=== PATIENT | female | born 1960 | race Two or more races ===

== ENCOUNTER → 2020-01-30 13:03 | Outpatient (BNVA) | payer OTHER, SELFPAY | PROVIDERS: PCP Internal Medicine; Visit Provider Student in an Organized Health Care Education/Training Program | DX: M32.9 Systemic lupus erythematosus, unspecified (principal); M35.00 Sjogren syndrome, unspecified; Z79.52 Long term (current) use of systemic steroids; Z79.899 Other long term (current) drug therapy | CPT/HCPCS: 99214 ==

== ENCOUNTER 2020-02-03 08:41 | Outpatient (REF) | payer OTHER, SELFPAY ==
[2020-02-03 10:38] LABS: MANUAL DIFF FLAG NO
[2020-02-03 10:51] LABS: Eosinophils Percent Auto 0.5 % (0-4); Hematocrit 41.1 % (37-47); Hemoglobin 12.9 g/dl (12.0-16.0); Imm Gran Abs Auto 0.01 X10*3/uL (0.00-0.03); Imm Gran Pct Auto 0.3 % (0.0-0.4); Lymphocytes Percent Auto 24.1 % (20-40); Mean Corpuscular HGB Conc 31.4 g/dl (31.0-35.0); Mean Corpuscular Hemoglobin 29.3 pg (27.0-33.0); Mean Corpuscular Volume 93.2 fL (80-98); Mean Platelet Volume 10.5 fL (9.4-12.3); Monocytes Absolute Auto 0.3 X10*3/uL (0.1-1.2); Monocytes Percent Auto 7.3 % (2-11); Neutrophils Absolute Auto 2.7 X10*3/uL (2.0-8.3); Neutrophils Percent Auto 67.8 % (45-73); Platelet Count 208 X10*3/uL (160-400); Red Blood Count 4.41 X10*6/uL (4.20-5.50); Red Cell Distribution Width 15.7 % (11.0-16.0)
[2020-02-03 11:03] LABS: Glucose Urine UA NEG (NEG); Leukocyte Esterase Urine NEG (NEG); Nitrite Urine NEG (NEG); Urine Blood NEG (NEG); Urine Ketones NEG (NEG); Urine Protein NEG (NEG-TRACE)
[2020-02-03 11:05] LABS: Alanine Aminotransferase 34 U/L (0-31); Albumin Level 3.8 g/dL (3.5-5.0); Alkaline Phosphatase 51 U/L (39-117); Anion Gap 12 (12-20); Aspartate Amino Transferase 23 U/L (5-31); Bilirubin Total 0.4 mg/dL (0.0-1.0); Blood Urea Nitrogen 12 mg/dL (9-16); C Reactive Protein 1.31 mg/dL (< or = 0.50); Calcium 8.9 mg/dL (8.4-10.2); Carbon Dioxide 27 mmol/L (22-29); Chloride 106 mmol/L (96-108); Estimated Glomerular Filt Rate > 60; Glucose Random 72 mg/dL (60-115); Potassium 3.8 mmol/l (3.3-5.1); Sodium 141 mmol/L (135-145)
[2020-02-03 11:09] LABS: Appearance Urine CLEAR; Color Urine YELLOW
[2020-02-03 11:25] LABS: Calcium Oxalate Crystals Urine 2+ /LPF; RBC Urine 0 /HPF (0); WBC Urine 0-2 /HPF (0-4)
[2020-02-03 12:07] LABS: Erythrocyte Sedimentation Rate 43 MM/HR (0-20)
[2020-02-04 12:31] LABS: Complement C3 45 mg/dL (83-193)
[2020-02-06 12:36] LABS: Anti DNA DS Antibody 1 IU/mL
== END 2020-02-03 08:42 | disposition home or self-care (01) ==
LOC: HO.LAB 08:41
PROVIDERS: PCP Internal Medicine; Visit Provider Student in an Organized Health Care Education/Training Program
DX: M32.9 Systemic lupus erythematosus, unspecified (principal)
CPT/HCPCS: 36415; 80053; 81001; 85025; 85652; 86140; 86160; 86225

== ENCOUNTER 2020-02-04 07:58 | Outpatient (REF) | payer OTHER, SELFPAY ==
--- NOTE | 2020-02-04 | US_ITS ---
EXAMINATION: US ABDOMEN COMPLETE CLINICAL INFORMATION: Right-sided abdominal pain. Elevated LFTs. COMPARISON: CT abdomen and pelvis 05/19/2017. Ultrasound abdomen complete 02/09/2014. TECHNIQUE: Real-time imaging of the abdominal viscera. FINDINGS: PANCREAS: The visualized portion of the pancreas head and body are normal, portion of the pancreatic body and tail, not visualized are obscured by bowel gas. ABDOMINAL AORTA: Abdominal aorta partially obscured by bowel gas. Visualized portion unremarkable. INFERIOR VENA CAVA: Visualized portions are normal. LIVER: There is diffuse increased liver parenchymal echogenicity, consistent with hepatic steatosis. The liver is normal in size and contour. No focal lesion or biliary ductal dilatation. GALLBLADDER: Not fully distended. The gallbladder is physiologically distended without evidence of stones, sludge, polyps, wall thickening or pericholecystic fluid. COMMON BILE DUCT: Normal in caliber measuring 0.2 cm in diameter. RIGHT KIDNEY: Echogenic structures likely nonobstructing stones the one in the lower calyx 0.7 x 0.3 x 0.7 cm, middle pole 4 x 4 by 3 x 3 mm, 4 x 3 x 3 mm and 4 x 2 x 2 mm. No hydronephrosis or focal parenchymal lesions. The kidney measures 11.5 cm in maximum dimension. LEFT KIDNEY: Normal. No hydronephrosis. No renal calculi or focal parenchymal lesions. The kidney measures 12.3 cm in maximum dimension. SPLEEN: Normal. The spleen measures 8.7 cm in maximum dimension. FREE FLUID: None. IMPRESSION: Diffusely echogenic liver suggesting hepatic steatosis. There are nonobstructing right kidney stones. No ultrasound evidence of hydronephrosis. Gallbladder was not fully distended, however no ultrasound evidence of gallstones or cholecystitis.
== END 2020-02-04 07:59 | disposition home or self-care (01) ==
LOC: HO.US 07:58
PROVIDERS: Visit Provider Internal Medicine
DX: R10.9 Unspecified abdominal pain (principal); R79.89 Other specified abnormal findings of blood chemistry
CPT/HCPCS: 76700

== ENCOUNTER 2020-03-23 11:05 | Outpatient (REF) | payer OTHER, SELFPAY | END 2020-03-23 11:06 | disposition home or self-care (01) | LOC: HO.LAB 11:05 | PROVIDERS: Visit Provider Internal Medicine | DX: Z20.828 Contact with and (suspected) exposure to other viral communicable diseases (principal) | CPT/HCPCS: U0003 ==

== ENCOUNTER 2020-03-24 07:47 | Outpatient (REF) | payer OTHER, SELFPAY ==
[2020-03-24 08:20] LABS: Eosinophils Percent Auto 0.2 % (0-4); Hematocrit 37.3 % (37-47); Hemoglobin 11.6 g/dl (12.0-16.0); Imm Gran Abs Auto 0.01 X10*3/uL (0.00-0.03); Imm Gran Pct Auto 0.2 % (0.0-0.4); Lymphocytes Absolute Auto 1.1 X10*3/uL (1.2-4.9); Lymphocytes Percent Auto 25.1 % (20-40); MANUAL DIFF FLAG NO; Mean Corpuscular HGB Conc 31.1 g/dl (31.0-35.0); Mean Corpuscular Hemoglobin 28.4 pg (27.0-33.0); Mean Corpuscular Volume 91.4 fL (80-98); Mean Platelet Volume 10.2 fL (9.4-12.3); Monocytes Absolute Auto 0.3 X10*3/uL (0.1-1.2); Monocytes Percent Auto 7.5 % (2-11); Neutrophils Absolute Auto 2.9 X10*3/uL (2.0-8.3); Platelet Count 203 X10*3/uL (160-400); Red Blood Count 4.08 X10*6/uL (4.20-5.50); Red Cell Distribution Width 17.5 % (11.0-16.0); White Blood Count 4.4 X10*3/uL (4.8-10.8)
[2020-03-24 08:46] LABS: Alanine Aminotransferase 23 U/L (0-31); Albumin Level 3.6 g/dL (3.5-5.0); Alkaline Phosphatase 59 U/L (39-117); Anion Gap 12 (12-20); Aspartate Amino Transferase 23 U/L (5-31); Bilirubin Total 0.5 mg/dL (0.0-1.0); Blood Urea Nitrogen 11 mg/dL (9-16); Calcium 8.5 mg/dL (8.4-10.2); Carbon Dioxide 28 mmol/L (22-29); Chloride 105 mmol/L (96-108); Estimated Glomerular Filt Rate > 60; Glucose Fasting 79 mg/dL (60-99); Potassium 3.6 mmol/l (3.3-5.1); Sodium 141 mmol/L (135-145); Total Protein 6.6 g/dL (6.5-8.0)
[2020-03-24 08:49] LABS: B Type Natriuretic Peptide 30 pg/mL (<100)
[2020-03-24 09:00] LABS: TSH reflex Free T4 1.85 mIU/mL (0.32-4.0); Vitamin D 25-OH Total 37.6 ng/mL (>30)
[2020-03-24 10:09] LABS: Glucose Urine UA NEG (NEG); Leukocyte Esterase Urine NEG (NEG); Nitrite Urine NEG (NEG); Specific Gravity - Urine 1.015 (1.005-1.025); Urine Blood NEG (NEG); Urine Ketones NEG (NEG); Urine Protein NEG (NEG-TRACE)
[2020-03-24 10:13] LABS: Appearance Urine CLOUDY; Color Urine YELLOW
[2020-03-24 11:12] LABS: Mucus Urine 1+ /LPF; RBC Urine 0 /HPF (0); Squamous Epithelial Cell Urine 1+ /LPF; WBC Urine 0 /HPF (0-4)
[2020-03-24 11:13] LABS: Amorphous Sediment Urine 3+ /LPF
[2020-03-31 14:17] LABS: Lipoprotein A 20 nmol/L (<75)
== END 2020-03-24 07:48 | disposition home or self-care (01) ==
LOC: HO.LAB 07:47
PROVIDERS: PCP Internal Medicine; Visit Provider Internal Medicine
DX: I12.9 Hypertensive chronic kidney disease with stage 1 through stage 4 chronic kidney disease, or unspecified chronic kidney disease (principal); N18.9 Chronic kidney disease, unspecified; E78.5 Hyperlipidemia, unspecified; E66.3 Overweight; R06.00 Dyspnea, unspecified; K21.9 Gastro-esophageal reflux disease without esophagitis; D64.9 Anemia, unspecified; E55.9 Vitamin D deficiency, unspecified; M85.80 Other specified disorders of bone density and structure, unspecified site
CPT/HCPCS: 36415; 80053; 81001; 82306; 83695; 83880; 84443; 85025

== ENCOUNTER → 2020-05-06 13:02 | Outpatient (BNVA) | payer OTHER, SELFPAY | PROVIDERS: PCP Internal Medicine; Visit Provider Student in an Organized Health Care Education/Training Program | DX: Z76.89 Persons encountering health services in other specified circumstances (principal) ==

== ENCOUNTER 2020-05-10 12:39 | Outpatient (REF) | payer OTHER, SELFPAY ==
--- NOTE | 2020-05-10 13:04 | XR_ITS ---
EXAMINATION: THORACIC AND LUMBAR SPINE. CLINICAL INFORMATION: SLE. COMPARISON: None TECHNIQUE: 3 views lumbar spine and 3 views dorsal spine. FINDINGS: DORSAL SPINE: There is normal thoracic kyphosis. The vertebral heights, alignment and disc heights are normal. There is no visible acute fracture, dislocation or lytic process seen. The paravertebral soft tissues are normal. LUMBAR SPINE: There is no maintain lumbar lordosis. The vertebral heights and alignment is normal. There is loss of L2-L3, L3-L4 and L4-L5 disc heights. Is mild ventral spondylosis at the L1 3-4 disc level. No lytic or sclerotic process seen. The paravertebral soft tissues are normal. The SI joints are normal. XR/XR thoracic spine 3V IMPRESSION: Unremarkable dorsal spine. Degenerative disc changes L2-L3 through L4-L5 disc level. There is no visible acute fracture or dislocation seen.
--- NOTE | 2020-05-10 13:04 | XR_ITS ---
EXAMINATION: THORACIC AND LUMBAR SPINE. CLINICAL INFORMATION: SLE. COMPARISON: None TECHNIQUE: 3 views lumbar spine and 3 views dorsal spine. FINDINGS: DORSAL SPINE: There is normal thoracic kyphosis. The vertebral heights, alignment and disc heights are normal. There is no visible acute fracture, dislocation or lytic process seen. The paravertebral soft tissues are normal. LUMBAR SPINE: There is no maintain lumbar lordosis. The vertebral heights and alignment is normal. There is loss of L2-L3, L3-L4 and L4-L5 disc heights. Is mild ventral spondylosis at the L1 3-4 disc level. No lytic or sclerotic process seen. The paravertebral soft tissues are normal. The SI joints are normal. XR/XR lumbar spine 2-3V IMPRESSION: Unremarkable dorsal spine. Degenerative disc changes L2-L3 through L4-L5 disc level. There is no visible acute fracture or dislocation seen.
[2020-05-10 13:42] LABS: MANUAL DIFF FLAG NO
[2020-05-10 13:49] LABS: Eosinophils Percent Auto 0.6 % (0-4); Hematocrit 39.4 % (37-47); Hemoglobin 12.7 g/dl (12.0-16.0); Imm Gran Abs Auto 0.02 X10*3/uL (0.00-0.03); Imm Gran Pct Auto 0.4 % (0.0-0.4); Lymphocytes Absolute Auto 1.2 X10*3/uL (1.2-4.9); Lymphocytes Percent Auto 23.1 % (20-40); Mean Corpuscular HGB Conc 32.2 g/dl (31.0-35.0); Mean Corpuscular Hemoglobin 29.1 pg (27.0-33.0); Mean Corpuscular Volume 90.4 fL (80-98); Mean Platelet Volume 10.7 fL (9.4-12.3); Monocytes Absolute Auto 0.4 X10*3/uL (0.1-1.2); Monocytes Percent Auto 6.8 % (2-11); Neutrophils Absolute Auto 3.7 X10*3/uL (2.0-8.3); Neutrophils Percent Auto 69.1 % (45-73); Platelet Count 249 X10*3/uL (160-400); Red Blood Count 4.36 X10*6/uL (4.20-5.50); Red Cell Distribution Width 17.2 % (11.0-16.0); White Blood Count 5.3 X10*3/uL (4.8-10.8)
[2020-05-10 14:05] LABS: Alanine Aminotransferase 22 U/L (0-31); Albumin Level 3.7 g/dL (3.5-5.0); Alkaline Phosphatase 65 U/L (39-117); Anion Gap 13 (12-20); Aspartate Amino Transferase 20 U/L (5-31); Bilirubin Total 0.3 mg/dL (0.0-1.0); Blood Urea Nitrogen 12 mg/dL (9-16); C Reactive Protein 0.35 mg/dL (< or = 0.50); Calcium 8.9 mg/dL (8.4-10.2); Carbon Dioxide 28 mmol/L (22-29); Chloride 104 mmol/L (96-108); Estimated Glomerular Filt Rate > 60; Glucose Random 111 mg/dL (60-115); Potassium 3.9 mmol/l (3.3-5.1); Sodium 141 mmol/L (135-145)
[2020-05-10 14:05] LABS: Glucose Urine UA NEG (NEG); Leukocyte Esterase Urine NEG (NEG); Nitrite Urine NEG (NEG); Urine Blood NEG (NEG); Urine Ketones NEG (NEG); Urine Protein NEG (NEG-TRACE)
[2020-05-10 14:07] LABS: Appearance Urine CLEAR; Color Urine YELLOW
[2020-05-10 14:18] LABS: Mucus Urine 2+ /LPF; RBC Urine 0-2 /HPF (0); Squamous Epithelial Cell Urine TRACE /LPF; Urine Talc Crystals 1+ /LPF
[2020-05-10 14:23] LABS: Bacteria Urine TRACE /LPF
[2020-05-10 14:29] LABS: Erythrocyte Sedimentation Rate 29 MM/HR (0-20)
[2020-05-11 13:37] LABS: Complement C3 33 mg/dL (83-193)
[2020-05-12 13:28] LABS: Anti DNA DS Antibody 1 IU/mL
== END 2020-05-10 12:40 | disposition home or self-care (01) ==
LOC: HO.LAB 12:39
PROVIDERS: PCP Internal Medicine; Visit Provider Student in an Organized Health Care Education/Training Program
DX: M32.9 Systemic lupus erythematosus, unspecified (principal)
CPT/HCPCS: 36415; 72072; 72100; 80053; 81001; 85025; 85652; 86140; 86160; 86225

== ENCOUNTER 2020-05-12 13:30 | Outpatient (REF) | payer OTHER, SELFPAY ==
--- NOTE | 2020-05-12 13:35 | MM_ITS ---
EXAMINATION: BONE DENSITOMETRY CLINICAL INDICATION: Long-term (current) use of systemic steroids. COMPARISON: Previous BD dated 07/04/2018 and baseline BD dated 02/24/2011. TECHNIQUE: Using a TCHO DXA System (software version: 13.1) manufactured by [employer], dual-energy x-ray absorptiometry was performed of the lumbar spine and left hip. The images are of good technical quality. Summary results are attached. FINDINGS: AP SPINE L1-L4: Current: BMD 1.116 g/cm2, Z-score 0.4, T-score -0.5, normal, 3.0% decrease from previous, 3.5% increase from baseline (<5% change is not significant). Prior: BMD 1.150 g/cm2. Baseline: BMD 1.078 g/cm2. LEFT FEMUR, NECK: Current: BMD 0.690 g/cm2, Z-score -1.4, T-score -2.5, osteoporosis. Prior: BMD 0.754 g/cm2. Baseline: BMD 0.777 g/cm2. LEFT FEMUR, TOTAL: Current: BMD 0.776 g/cm2, Z-score -1.1, T-score -1.8, osteopenia, 2.4% decrease from previous, 0.8% decrease from baseline (<5% change is not significant). Prior: BMD 0.795 g/cm2. Baseline: BMD 0.782 g/cm2. IDENTIFIED RISK FACTORS: Rheumatoid arthritis. Renal disease. Chronic glucocorticoids. Menopause. HISTORY OF FRACTURE: None listed. MEDICATIONS: Calcium supplement and/or multivitamin. Vitamin D. MM/XR DEXA axial skeleton IMPRESSION: 1. DIAGNOSIS: Osteoporosis based on the lowest T-score value of -2.5 in the femoral neck applying World Health Organization criteria. 2. 10-YEAR FRACTURE RISK PREDICTION, FRAX: Major osteoporotic fracture (clinical spine, forearm, hip or shoulder) 12.8%. Hip fracture 2.9%. 3. Treatment Recommendations: NOF guidelines recommend consideration for treatment in postmenopausal women and men age 50 and older presenting with the following: -A hip or vertebral (clinical or morphometric) fracture. -T-score less than or equal to -2.5 at the femoral neck or spine after appropriate evaluation to exclude secondary causes. -Low bone mass at the hip or spine and a 10-year fracture probability by FRAX of greater than or equal to 3% for hip fracture or greater than or equal to 20% for major osteoporotic fracture based on the [place] adapted WHO algorithm. 4. Other Recommendations: All treatment decisions require clinical judgment and consideration of individual patient factors, including patient preferences, comorbidities, previous drug use, risk factors not captured in the FRAX model (e.g. frailty, falls, vitamin D deficiency, increased bone turnover, interval significant decline in bone density) and possible under or overestimation of fracture risk by FRAX. Additional medical evaluation for secondary cause of low bone mineral density may be appropriate. FUTURE SCAN RECOMMENDATION: People with diagnosed cases of osteoporosis or at high risk for fracture should have regular bone mineral density tests. For patients eligible for Medicare, routine testing is allowed once every 2 years. The testing frequency can be increased to one year for patients who have rapidly progressing disease, those who are receiving or discontinuing medical therapy to restore bone mass, or have additional risk factors.
== END 2020-05-12 13:31 | disposition home or self-care (01) ==
LOC: HO.MAMMO 13:30
PROVIDERS: PCP Internal Medicine; Visit Provider Student in an Organized Health Care Education/Training Program
DX: Z13.820 Encounter for screening for osteoporosis (principal); Z78.0 Asymptomatic menopausal state; M06.9 Rheumatoid arthritis, unspecified; N28.9 Disorder of kidney and ureter, unspecified; E27.49 Other adrenocortical insufficiency; Z79.52 Long term (current) use of systemic steroids
CPT/HCPCS: 77080

== ENCOUNTER 2020-06-18 12:43 | Outpatient (REF) | payer OTHER, SELFPAY ==
--- NOTE | ~2020-06-18 | XR_ITS ---
EXAMINATION: XR CHEST CLINICAL INFORMATION: Dyspnea COMPARISON: Previous chest x-ray most recent June [address] August 2019 TECHNIQUE: 2 views of the chest were obtained. FINDINGS: The cardiac silhouette is enlarged but stable. Hilar and mediastinal contours are unremarkable. The lungs are clear. There is a small left pleural effusion that is unchanged. There is no right pleural effusion. There are degenerative changes of the spine. XR/XR chest 2V IMPRESSION: Stable enlargement of the cardiac silhouette and small left pleural effusion from previous exams.
== END 2020-06-18 12:44 | disposition home or self-care (01) ==
LOC: HO.XRAY 12:43
PROVIDERS: PCP Internal Medicine; Visit Provider Internal Medicine Pulmonary Disease
DX: R06.00 Dyspnea, unspecified (principal)
CPT/HCPCS: 71046; 99212

== ENCOUNTER 2020-06-29 07:20 | Day surgery (SDC) | payer OTHER, SELFPAY ==
--- NOTE | ~2020-06-29 | XR_ITS ---
EXAMINATION: XR CHEST portable. CLINICAL INFORMATION: Status post thoracentesis. COMPARISON: None TECHNIQUE: 2 views of the chest performed portably. FINDINGS: Inspiration and expiration views of lungs reveal no visible pneumothorax status post thoracentesis. Heart size is enlarged. Pulmonary vascularity is normal. No gross bony abnormality seen. XR/XR chest 2V IMPRESSION: Mild cardiomegaly. Otherwise no acute process seen. No major change from 06/29/2020
--- NOTE | ~2020-06-29 | US_ITS ---
EXAMINATION: US-GUIDED THORACENTESIS, LEFT CLINICAL INFORMATION: Small left pleural effusion. COMPARISON: None TECHNIQUE: Following explaining ultrasound-guided left thoracentesis procedure, the benefits and risk through a chief nurse anesthetist, a written consent was obtained. Patient was placed upright view sitting on ultrasound stretcher. Preliminary ultrasound imaging was obtained through the left posterior chest. An optimal site was selected along the infrascapular line and marked. The marked site was cleaned and draped in usual sterile manner. 1% lidocaine was injected at marked site. Through a small skin incision, a 5-[place] [employer] catheter was advanced into the pleural space. After observing fluid return, stylet was withdrawn and catheter connected to vacuum bottle via connecting cannula. After obtaining all fluid and observing no more fluid return, catheter was withdrawn making sure no air leaked in. Sterile bandage applied postprocedure. Patient tolerated procedure well. Patient was monitored by IR nurse. FINDINGS: On preliminary ultrasound imaging, there is a small left pleural effusion seen. Approximately 150 mL of clear yellow fluid was drained from the left pleural space. All of this fluid was sent to lab as per referring physician's orders. US/US thoracentesis IMPRESSION: Successful ultrasound-guided left thoracentesis performed without immediate complications.
[2020-06-29 07:38] VITALS: BMI 29.5
[2020-06-29 07:46] LABS: MANUAL DIFF FLAG NO
[2020-06-29 07:48] LABS: Eosinophils Percent Auto 0.9 % (0-4); Hematocrit 40.2 % (37-47); Hemoglobin 12.6 g/dl (12.0-16.0); Imm Gran Abs Auto 0.01 X10*3/uL (0.00-0.03); Imm Gran Pct Auto 0.2 % (0.0-0.4); Lymphocytes Absolute Auto 1.8 X10*3/uL (1.2-4.9); Lymphocytes Percent Auto 38.9 % (20-40); Mean Corpuscular HGB Conc 31.3 g/dl (31.0-35.0); Mean Corpuscular Hemoglobin 28.4 pg (27.0-33.0); Mean Corpuscular Volume 90.7 fL (80-98); Mean Platelet Volume 10.2 fL (9.4-12.3); Monocytes Absolute Auto 0.4 X10*3/uL (0.1-1.2); Monocytes Percent Auto 8.4 % (2-11); Neutrophils Absolute Auto 2.4 X10*3/uL (2.0-8.3); Neutrophils Percent Auto 51.6 % (45-73); Platelet Count 229 X10*3/uL (160-400); Red Blood Count 4.43 X10*6/uL (4.20-5.50); Red Cell Distribution Width 16.3 % (11.0-16.0); White Blood Count 4.6 X10*3/uL (4.8-10.8)
[2020-06-29 07:54] LABS: INTERNATIONAL NORM RATIO 0.9 (0.9-1.1); Prothrombin Time 10.6 SEC (10.8-13.0)
[2020-06-29 07:57] LABS: Partial Thromboplastin Time 30.8 SEC (24.1-38.0)
[2020-06-29 10:04] VITALS: BP 133/75; PULSE 81; RESP 18; TEMP 36.3; O2SAT 94
[2020-06-29] MEDS: Lidocaine HCl 1 % MPF 5 ML VIAL SUBCUT (10:08)
[2020-06-29 10:30] LABS: MN% 99.2 %; PMN% 0.8 %; WBC Pleural Fluid 1.973 X10*3/uL
[2020-06-29] MEDS: Acetaminophen 325 MG TABLET 650 MG PO (10:30)
[2020-06-29] MEDS: oxyCODONE HCl Immed Release 5 MG TABLET PO (10:31)
[2020-06-29 10:35] LABS: RBC Pleural Fluid < 0.002 X10*3/uL
[2020-06-29 10:47] VITALS: BP 129/61; PULSE 79; RESP 18; O2SAT 94
[2020-06-29 11:07] VITALS: BP 127/58; PULSE 77; RESP 18; O2SAT 96
[2020-06-29 11:37] VITALS: BP 143/68; PULSE 85; RESP 18; O2SAT 96
[2020-06-29 11:38] LABS: BF Shift QC OK YES; Lymphocytes Pleural Fluid 59 %; Monocytes Pleural Fluid 2 %; Other Cells Plerual Fl 39 %
[2020-06-29 12:06] VITALS: BP 135/60; PULSE 87; RESP 18; O2SAT 96
[2020-06-29 12:30] VITALS: BP 138/70; PULSE 87; RESP 16; TEMP 36.6; O2SAT 96
[2020-06-30 07:57] LABS: Albumin Pleural Fluid 2.6
[2020-06-30 07:58] LABS: Glucose Pleural Fluid 94; LDH Pleural Fluid 98
[2020-06-30 07:59] LABS: Total Protein Pleural Fluid 4.6
== END 2020-06-29 12:38 | disposition home or self-care (01) ==
PROVIDERS: Internal Medicine Pulmonary Disease; Radiology Diagnostic Radiology; PCP Internal Medicine; Visit Provider Radiology Diagnostic Radiology
DX: J90 Pleural effusion, not elsewhere classified (principal); I51.7 Cardiomegaly
CPT/HCPCS: 32555; 36415; 71046; 82042; 82945; 83615; 84157; 85025; 85610; 85730; 87070; 87071; 87073; 87205; 88112; 89051

== ENCOUNTER 2020-07-08 11:24 | Outpatient (REF) | payer OTHER, SELFPAY ==
--- NOTE | ~2020-07-08 | XR_ITS ---
EXAMINATION: XR CHEST CLINICAL INFORMATION: R06.00 - Dyspnea, unspecified COMPARISON: Chest radiographs 06/29/2020, 06/18/2020 TECHNIQUE: 2 views of the chest were obtained. FINDINGS: There is mild enlargement cardiopericardial silhouette similar to prior studies. The vascularity is normal. There is subsegmental disc atelectasis right base. There is no lobar or segmental airspace consolidation or focal groundglass opacity. Tapering at the cardiophrenic angles is consistent with areolar tissue and similar to prior studies. There is mild recurrent blunting left lateral costophrenic angle less than that on 06/18/2020. The posterior costophrenic sulci are clear. There is no significant effusion. The hilar and mediastinal contours and bony structures are stable. XR/XR chest 2V IMPRESSION: 1. Subsegmental atelectasis right base. 2. Mild blunting left lateral costophrenic angle. No significant effusion on lateral view.
== END 2020-07-08 11:25 | disposition home or self-care (01) ==
LOC: HO.XRAY 11:24
PROVIDERS: PCP Internal Medicine; Visit Provider Student in an Organized Health Care Education/Training Program
DX: R06.00 Dyspnea, unspecified (principal); M32.9 Systemic lupus erythematosus, unspecified; M35.00 Sjogren syndrome, unspecified; M47.816 Spondylosis without myelopathy or radiculopathy, lumbar region; M81.0 Age-related osteoporosis without current pathological fracture; Z79.52 Long term (current) use of systemic steroids; Z79.899 Other long term (current) drug therapy
CPT/HCPCS: 71046; 99212

== ENCOUNTER 2020-07-09 12:09 | Outpatient (REF) | payer OTHER, SELFPAY ==
--- NOTE | ~2020-07-09 | MM_ITS ---
EXAMINATION: MM SCREENING DIGITAL BREAST TOMOSYNTHESIS, BILATERAL CLINICAL INFORMATION: Screening. Asymptomatic. The lifetime risk of breast cancer based on the Tyrer-Cuzick Model is 9%. COMPARISON: Mammography: 07/07/2019, 07/04/2018, 12/18/2017, 06/12/2017 TECHNIQUE: Digital breast tomosynthesis is performed in both the craniocaudal and mediolateral oblique views along with computer-aided detection (CAD). Synthesized 2D images are generated from the tomosynthesis. FINDINGS: There are scattered areas of fibroglandular density (ACR BI-RADS breast composition Category b). There are no significant masses, abnormal calcifications, or other abnormalities. There is no developing density. Scattered bilateral benign coarse and rim and some dystrophic calcifications are present. The axilla and skin contours are unremarkable. MM/MM tomosynthesis screening BI IMPRESSION: No mammographic evidence of malignancy. ASSESSMENT: BI-RADS 2: Benign RECOMMENDATION: Routine annual mammography screening. This patient's information was entered into a reminder system with a target due date for their next mammogram.
== END 2020-07-09 12:10 | disposition home or self-care (01) ==
LOC: HO.MAMMO 12:09
PROVIDERS: PCP Internal Medicine; Visit Provider Internal Medicine
DX: Z12.31 Encounter for screening mammogram for malignant neoplasm of breast (principal)
CPT/HCPCS: 77063; 77067

== ENCOUNTER → 2020-07-14 12:53 | Outpatient (BNVA) | payer OTHER, SELFPAY | PROVIDERS: Visit Provider Internal Medicine ==

== ENCOUNTER 2020-07-19 11:18 | Emergency (ER) | payer OTHER, SELFPAY ==
--- NOTE | 2020-07-19 | ECG_ITS ---
Test Reason : CP Blood Pressure : / mmHG Vent. Rate : 082 BPM Atrial Rate : 082 BPM P-R Int : 120 ms QRS Dur : 064 ms QT Int : 316 ms P-R-T Axes : 036 -03 042 degrees QTc Int : 369 ms Normal sinus rhythm Low voltage QRS Nonspecific T wave abnormality Abnormal ECG When compared with ECG of 25-JUN-2017 14:39, Vent. rate has decreased BY 40 BPM Nonspecific T wave abnormality now evident in Lateral leads Referred By: Generic ED Physician Electronically Signed By:Campbell Weber
--- NOTE | ~2020-07-19 | CT_ITS ---
EXAMINATION: CT ANGIOGRAM OF THE CHEST WITH AND WITHOUT CONTRAST (CT PULMONARY ANGIOGRAM FOR PE) CLINICAL INFORMATION: Reason for Exam chest pain, SOB, hx pericardial and pleural effusions COMPARISON: Previous chest x-ray most from earlier the same day and chest CT August 2019 TECHNIQUE: Prior to contrast administration, noncontrast localization images were obtained. Subsequently, multidetector volumetric imaging was performed from the thoracic inlet to below the diaphragms following the administration of 65 mL Omnipaque 350 intravenous contrast. No contrast reaction reported Sagittal, coronal, and MIP oblique sagittal reformatted images were obtained on the CT workstation, uploaded to PACS, and reviewed. This CT examination was performed using dose optimization techniques as appropriate, variously including the following: *Automated exposure control *Adjustment of mA and/or kV according to patient size (this includes techniques or standardized protocols for targeted exams where dose is matched to indication/reason for exam; i.e. extremities or head) *Use of iterative reconstruction technique Total exam dose-length product 269 mGy-cm FINDINGS: QUALITY OF STUDY/CONTRAST BOLUS: Satisfactory. PULMONARY ARTERIES: No central or segmental pulmonary emboli. THORACIC AORTA: No aneurysm or dissection. LUNG: No focal consolidation, nodules or masses. There is subsegmental atelectasis at the lung bases. PLEURA: There is a small left pleural effusion. This is similar to previous exams CT exam from 2019. There is no right pleural effusion. MEDIASTINUM: The heart is enlarged. No pericardial effusion. No hilar or mediastinal lymphadenopathy. No evidence of septal bowing or right heart strain. CHEST WALL/AXILLA: No axillary or internal mammary lymphadenopathy. OSSEOUS STRUCTURES: There are old bilateral rib fractures. UPPER ABDOMEN: Unremarkable. No reflux of contrast into the hepatic veins to suggest elevated right heart pressures. CT/CT angio chest PE protocol IMPRESSION: No evidence of pulmonary embolism. Enlarged heart. No pericardial effusion. Stable small left pleural effusion from August 2019 exam. Minimal subsegmental atelectasis at the left lung bases. VTE: negative
--- NOTE | ~2020-07-19 | XR_ITS ---
EXAMINATION: XR CHEST CLINICAL INFORMATION: Chest pain COMPARISON: Chest 07/08/2020 TECHNIQUE: Frontal view of the chest was obtained. FINDINGS: The lungs are well-expanded and clear. Heart size and pulmonary vascularity is normal. No gross bony abnormality. XR/XR chest 1V IMPRESSION: Unremarkable chest exam. No change from 07/08/2020
[2020-07-19 11:23] VITALS: BP 154/71; PULSE 91; RESP 16; TEMP 37.5; O2SAT 96; BMI 30.6
--- NOTE | 2020-07-19 12:05 | ED.CHESTPAIN ---
HPI - Chest Pain General Chief Complaint: Chest Pain <MISHA Coronado - Last Filed: 07/19/20 15:43> Stated Complaint: chest pain,left arm numb 3 days <MISHA Coronado - Last Filed: 07/19/20 15:43> Time Seen by Provider: 07/19/20 11:42 <MISHA Coronado - Last Filed: 07/19/20 15:43> Source: patient <MISHA Coronado - Last Filed: 07/19/20 15:43> Mode of arrival: ambulatory <MISHA Coronado - Last Filed: 07/19/20 15:43> Limitations: language barrier <MISAH Coronado Last Filed: 07/19/20 15:43> History of Present Illness HPI narrative: 59 yo female with history of asthma, COPD, obesity, lupus and Sjogren's syndrome on chronic prednisone and Imuran, history of pericardial effusion with tamponade May 2017 s/p VATS & pericardial window, history of pericarditis, history of recurrent left sided thoracentesis requiring recurrent thoracentesis (last here 06/29) who presents with worsening left sided chest pain that radiates around her rib cage to her back. It is worse with deep breaths, walking, movement and palpation. She is more SOB than usual. She has been having chills at night and occasional nausea. She was seen by Dr. Love today who sent her into the ER for further evaluation given her recent thoracentesis. Patient denies fevers, coughing, sick contacts (including COVID), vomiting, abdominal pain. <MISHA Coronado - Last Filed: 07/19/20 15:43> Related Data Home Medications: Home Medications Medication Instructions Recorded Confirmed amitriptyline 25 mg tablet 25 mg PO TID tab 01/30/20 07/19/20 baclofen 20 mg tablet 20 mg PO BID 01/30/20 07/19/20 nztvxsaass-qxdxqukgvdmqf-ysllqsuy 1 cap PO Q6H PRN 01/30/20 07/19/20 50 mg-325 mg-40 mg capsule cyclobenzaprine 10 mg tablet 10 mg PO TID 01/30/20 07/19/20 diclofenac sodium 75 mg 75 mg PO BID 01/30/20 07/19/20 tablet,delayed release diphenhydramine HCl 25 mg tablet 25 mg PO Q6H PRN 01/30/20 07/19/20 fluticasone propionate 115 2 puff INHALATION BID 01/30/20 07/19/20 mcg-salmeterol 21 mcg/actuation HFA inhaler folic acid 1 mg tablet 1 mg PO DAILY 01/30/20 07/19/20 furosemide 40 mg tablet 40 mg PO DAILY 01/30/20 07/19/20 omega 6-wmv-swn-fish oil 1,200 mg 1 cap PO BID cap 01/30/20 07/19/20 (144 mg-216 mg) capsule promethazine 25 mg tablet 25 mg PO QID PRN 01/30/20 07/19/20 famotidine 20 mg tablet 20 mg PO BID 05/06/20 07/19/20 tramadol 50 mg tablet 50 mg PO BID PRN 05/06/20 07/19/20 Previous Rx's Medication Instructions Recorded atorvastatin 80 mg tablet 80 mg PO DAILY #90 tab 02/16/20 azathioprine 50 mg tablet 50 mg PO TID 30 Days #90 tab 04/06/20 prednisone 10 mg tablet 10 mg PO DAILY 30 Days #30 tab 04/06/20 ergocalciferol (vitamin D2) 1,250 1,250 mcg PO QWEEK #4 cap 04/10/20 mcg (50,000 unit) capsule pilocarpine HCl 5 mg tablet 5 mg PO TID #90 tab 04/12/20 alendronate 70 mg tablet 70 mg PO QWEEK #12 tab 05/13/20 polyethylene glycol 3350 17 17 g PO DAILY PRN 30 Days #510 g 07/11/20 gram/dose oral powder <MISHA Coronado - Last Filed: 07/19/20 15:43> Allergies/Adverse Reactions: Allergies Allergy/AdvReac Type Severity Reaction Status Date / Time hydroxychloroquine Allergy Intermediate problem Verified 07/19/20 10:53 [From Plaquenil] with eyes methotrexate [METHOTREXATE] Allergy Unknown NAUSEA & Verified 07/19/20 10:53 VOMITING Sulfa (Sulfonamide Allergy Unknown swelling Verified 07/19/20 10:53 Antibiotics) [SULFA (SULFONAMIDE ANTIBIOTICS)] vancomycin [VANCOMYCIN] Allergy Unknown Low BP Verified 07/19/20 10:53 <MISHA Coronado - Last Filed: 07/19/20 15:43> Review of Systems Review of Systems: Constitutional: No Fever, + Chills ENT/Mouth: No sore throat, No Rhinorrhea, No Swallowing Difficulty Cardiovascular: + Chest Pain, + SOB, No Orthopnea, No Edema Respiratory: No Cough, No Sputum, No Wheezing, + dyspnea Gastrointestinal: + Nausea, No Vomiting, No Diarrhea, No abdominal Pain Genitourinary: No Dysuria, No Urinary Frequency, No Hematuria Musculoskeletal: No joint pain, No Myalgias Skin: No Skin Lesions, No rash Neuro: No Weakness, No Numbness, No Dizziness, No Headache Psych: No Anxiety/Panic, No Depression Heme/Lymph: No Bruising, No Lymphadenopathy Endocrine: No Polyuria, No Polydipsia <MISHA Coronado - Last Filed: 07/19/20 15:43> [facility] Past Medical History Attestation statement: The following information was validated with the patient. <MISHA Coronado - Last Filed: 07/19/20 15:43> Medical History: Medical History Elevated LFTs Obesity (BMI 30-39.9) Pericardial effusion Pure hypercholesterolemia <MISHA Coronado - Last Filed: 07/19/20 15:43> Surgical History: Surgical History History of bronchoscopy History of skin graft History of surgery History of thoracentesis Hx of section Hx of tubal ligation Status post debridement <MISHA Coronado - Last Filed: 07/19/20 15:43> Family History Family History: Family History Father Medical history unknown Mother Diabetes Hypertension <MISHA Coronado - Last Filed: 07/19/20 15:43> Social History Social History: Social History Alcohol intake: never Smoking Status: Never smoker Smoked in Last 30 Days: No Use of substances other than those prescribed or required for medical reasons: No Advance Directives: No Advance Directives Information Provided: No Sexual orientation: Straight/Heterosexual Gender identity: female <MISHA Coronado - Last Filed: 07/19/20 15:43> Physical Exam Vital Signs: Vital Signs: Last Vital Signs Temp 99.5 F 07/19/20 11:23 Pulse 81 07/19/20 14:41 Resp 13 07/19/20 14:41 BP 129/66 07/19/20 14:41 Pulse Ox 96 07/19/20 14:41 Body Mass Index 30.6 Appearance: Alert. Oriented X3. No acute distress. Eyes: Pupils equal, round and reactive to light. ENT: Pharynx normal. Neck: Normal inspection. Neck supple. CVS: Normal heart rate and rhythm, distant S1/S2. Pulses normal. Respiratory: No respiratory distress. Breath sounds diminished at left base. Tender chest wall on the left anteriorly and laterally. Abdomen: Soft and non-tender. +BS x4 Skin: Skin warm and dry. Normal skin color. Normal skin turgor. No rashes. Extremities: No lower extremity edema. Neuro: Oriented X 3. Non-focal. No sensory or motor deficits. normal sensation of LUE <MISHA Coronado - Last Filed: 07/19/20 15:43> Vital Signs: Last Vital Signs Temp 99.5 F 07/19/20 11:23 Pulse 81 07/19/20 14:41 Resp 13 07/19/20 14:41 BP 129/66 07/19/20 14:41 Pulse Ox 96 07/19/20 14:41 Body Mass Index 30.6 <Curtis Wilson MD - Last Filed: 07/19/20 13:18> Course Course Course Narrative: 59 y/o female with history of SLE/Sjogren's, hx pericardial effusion and recurrent left sided pleural effusion with recent thoracentesis presenting with 2-3 days of worsening chest pain and SOB. Tender on exam with diminished lung sounds at left base. No respiratory distress. SpO2 95% on room air and hemodyncamically stable. Will get CXR, EKG, labs including DDIMER. Concerned for recurrent plerual effusion, possible PE, PNA, or recurrent pericardial effusion. Will get COVID swab as well. Dispo pending results and improvement. Bedside U/S with Dr. Wilson does not show pericardial effusion. <MISHA Coronado - Last Filed: 07/19/20 15:43> I have discussed the case and management with the SHELLY. Patient with pleuritic chest pain, positive ddimer and CRP. Bedside ultrasound performed by me show no pericardial effusion. Will CT to rule out PE. <Curtis Wilson MD - Last Filed: 07/19/20 13:18> Reevaluation(s) Reevaluation #1: CTA: No evidence of pulmonary embolism. Enlarged heart. No pericardial effusion. Stable small left pleural effusion from August 2019 exam. Minimal subsegmental atelectasis at the left lung bases Troponin negative. Viral PCR pending. She remains hemodynamically stable, in no respiratory distress with SpO2 96%. <MISHA Coronado - Last Filed: 07/19/20 15:43> Reevaluation #2: Viral PCR is negative. Her pain is improved. 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 <MISHA Coronado - Last Filed: 07/19/20 15:43> MDM - Chest Pain Medical Records Data Attestation: I reviewed the patient's medical records. <MISHA Coronado - Last Filed: 07/19/20 15:43> Lab Data Attestation: I reviewed the patient's lab results. <MISHA Coronado - Last Filed: 07/19/20 15:43> Result diagrams: : 07/19/20 12:18 07/19/20 12:19 <MISHA Coronado - Last Filed: 07/19/20 15:43> Labs: Lab Results 07/19/20 07/19/20 07/19/20 Range/Units 12:18 12:18 12:18 WBC 6.1 (4.8-10.8) X10*3/uL RBC 4.32 (4.20-5.50) X10*6/uL Hgb 12.2 (12.0-16.0) g/dl Hct 39.4 (37-47) % MCV 91.2 (80-98) fL MCH 28.2 (27.0-33.0) pg MCHC 31.0 (31.0-35.0) g/dl RDW 16.6 H (11.0-16.0) % Plt Count 211 (160-400) X10*3/uL MPV 9.9 (9.4-12.3) fL Immature Gran % (Auto) 0.2 (0.0-0.4) % Neut % (Auto) 79.6 H (45-73) % Lymph % (Auto) 14.2 L (20-40) % [place] % (Auto) 5.8 (2-11) % Eos % (Auto) 0.2 (0-4) % Baso % (Auto) 0.0 (0-2) % Lymph # (Auto) 0.9 L (1.2-4.9) X10*3/uL [place] # (Auto) 0.4 (0.1-1.2) X10*3/uL Eos # (Auto) 0.0 (0.0-0.4) X10*3/uL Baso # (Auto) 0.0 (0.0-0.2) X10*3/uL Abs Immat Gran (auto) 0.01 (0.00-0.03) X10*3/uL Absolute Neuts (auto) 4.8 (2.0-8.3) X10*3/uL Absolute Nucleated RBC 0.000 (0.0-0.012) X10*3/uL Nucleated RBC % (auto) 0.0 (0.0-0.2) /100WBC ESR (0-20) MM/HR D-Dimer 455 NG/ML Hold Blue Top SEE NOTE Sodium (135-145) mmol/L Potassium (3.3-5.1) mmol/L Chloride (96-108) mmol/L Carbon Dioxide (22-29) mmol/L Anion Gap (12-20) BUN (9-16) mg/dL Creatinine (0.5-1.4) mg/dL Estim Creat Clear Calc Estimated GFR Random Glucose (60-115) mg/dL Calcium (8.4-10.2) mg/dL Magnesium (1.6-2.6) mg/dL Total Bilirubin (0.0-1.0) mg/dL Direct Bilirubin (0.0-0.5) mg/dL AST (5-31) U/L ALT (0-31) U/L Alkaline Phosphatase (39-117) U/L Troponin I High Sens (<3.5-17.0) ng/L C-Reactive Protein (< or = 0.50) mg/dL B-Natriuretic Peptide (<100) pg/mL Total Protein (6.5-8.0) g/dL Albumin (3.5-5.0) g/dL Procalcitonin ng/mL Coronavirus (PCR) NEGATIVE (Negative) Influenza Type A (PCR) NEGATIVE (Negative) Influenza Type B (PCR) NEGATIVE (Negative) RSV RNA Qual (PCR) NEGATIVE (Negative) 07/19/20 07/19/20 07/19/20 Range/Units 12:18 12:19 12:19 WBC (4.8-10.8) X10*3/uL RBC (4.20-5.50) X10*6/uL Hgb (12.0-16.0) g/dl Hct (37-47) % MCV (80-98) fL MCH (27.0-33.0) pg MCHC (31.0-35.0) g/dl RDW (11.0-16.0) % Plt Count (160-400) X10*3/uL MPV (9.4-12.3) fL Immature Gran % (Auto) (0.0-0.4) % Neut % (Auto) (45-73) % Lymph % (Auto) (20-40) % [place] % (Auto) (2-11) % Eos % (Auto) (0-4) % Baso % (Auto) (0-2) % Lymph # (Auto) (1.2-4.9) X10*3/uL [place] # (Auto) (0.1-1.2) X10*3/uL Eos # (Auto) (0.0-0.4) X10*3/uL Baso # (Auto) (0.0-0.2) X10*3/uL Abs Immat Gran (auto) (0.00-0.03) X10*3/uL Absolute Neuts (auto) (2.0-8.3) X10*3/uL Absolute Nucleated RBC (0.0-0.012) X10*3/uL Nucleated RBC % (auto) (0.0-0.2) /100WBC ESR 45 H (0-20) MM/HR D-Dimer NG/ML Hold Blue Top Sodium 143 (135-145) mmol/L Potassium 4.7 (3.3-5.1) mmol/L Chloride 109 H (96-108) mmol/L Carbon Dioxide 22 (22-29) mmol/L Anion Gap 17 (12-20) BUN 11 (9-16) mg/dL Creatinine 0.76 (0.5-1.4) mg/dL Estim Creat Clear Calc 74.0 Estimated GFR > 60 Random Glucose 95 (60-115) mg/dL Calcium 8.4 (8.4-10.2) mg/dL Magnesium 2.1 (1.6-2.6) mg/dL Total Bilirubin 0.4 (0.0-1.0) mg/dL Direct Bilirubin < 0.2 (0.0-0.5) mg/dL AST 26 (5-31) U/L ALT 17 (0-31) U/L Alkaline Phosphatase 58 (39-117) U/L Troponin I High Sens < 3.5 (<3.5-17.0) ng/L C-Reactive Protein 4.98 H (< or = 0.50) mg/dL B-Natriuretic Peptide 25 (<100) pg/mL Total Protein 7.2 (6.5-8.0) g/dL Albumin 3.6 (3.5-5.0) g/dL Procalcitonin ng/mL Coronavirus (PCR) (Negative) Influenza Type A (PCR) (Negative) Influenza Type B (PCR) (Negative) RSV RNA Qual (PCR) (Negative) 07/19/20 Range/Units 12:19 WBC (4.8-10.8) X10*3/uL RBC (4.20-5.50) X10*6/uL Hgb (12.0-16.0) g/dl Hct (37-47) % MCV (80-98) fL MCH (27.0-33.0) pg MCHC (31.0-35.0) g/dl RDW (11.0-16.0) % Plt Count (160-400) X10*3/uL MPV (9.4-12.3) fL Immature Gran % (Auto) (0.0-0.4) % Neut % (Auto) (45-73) % Lymph % (Auto) (20-40) % [place] % (Auto) (2-11) % Eos % (Auto) (0-4) % Baso % (Auto) (0-2) % Lymph # (Auto) (1.2-4.9) X10*3/uL [place] # (Auto) (0.1-1.2) X10*3/uL Eos # (Auto) (0.0-0.4) X10*3/uL Baso # (Auto) (0.0-0.2) X10*3/uL Abs Immat Gran (auto) (0.00-0.03) X10*3/uL Absolute Neuts (auto) (2.0-8.3) X10*3/uL Absolute Nucleated RBC (0.0-0.012) X10*3/uL Nucleated RBC % (auto) (0.0-0.2) /100WBC ESR (0-20) MM/HR D-Dimer NG/ML Hold Blue Top Sodium (135-145) mmol/L Potassium (3.3-5.1) mmol/L Chloride (96-108) mmol/L Carbon Dioxide (22-29) mmol/L Anion Gap (12-20) BUN (9-16) mg/dL Creatinine (0.5-1.4) mg/dL Estim Creat Clear Calc Estimated GFR Random Glucose (60-115) mg/dL Calcium (8.4-10.2) mg/dL Magnesium (1.6-2.6) mg/dL Total Bilirubin (0.0-1.0) mg/dL Direct Bilirubin (0.0-0.5) mg/dL AST (5-31) U/L ALT (0-31) U/L Alkaline Phosphatase (39-117) U/L Troponin I High Sens (<3.5-17.0) ng/L C-Reactive Protein (< or = 0.50) mg/dL B-Natriuretic Peptide (<100) pg/mL Total Protein (6.5-8.0) g/dL Albumin (3.5-5.0) g/dL Procalcitonin 0.03 ng/mL Coronavirus (PCR) (Negative) Influenza Type A (PCR) (Negative) Influenza Type B (PCR) (Negative) RSV RNA Qual (PCR) (Negative) <MISHA Coronado - Last Filed: 07/19/20 15:43> Lab Results 07/19/20 07/19/20 07/19/20 Range/Units 12:18 12:18 12:18 WBC 6.1 (4.8-10.8) X10*3/uL RBC 4.32 (4.20-5.50) X10*6/uL Hgb 12.2 (12.0-16.0) g/dl Hct 39.4 (37-47) % MCV 91.2 (80-98) fL MCH 28.2 (27.0-33.0) pg MCHC 31.0 (31.0-35.0) g/dl RDW 16.6 H (11.0-16.0) % Plt Count 211 (160-400) X10*3/uL MPV 9.9 (9.4-12.3) fL Immature Gran % (Auto) 0.2 (0.0-0.4) % Neut % (Auto) 79.6 H (45-73) % Lymph % (Auto) 14.2 L (20-40) % [place] % (Auto) 5.8 (2-11) % Eos % (Auto) 0.2 (0-4) % Baso % (Auto) 0.0 (0-2) % Lymph # (Auto) 0.9 L (1.2-4.9) X10*3/uL [place] # (Auto) 0.4 (0.1-1.2) X10*3/uL Eos # (Auto) 0.0 (0.0-0.4) X10*3/uL Baso # (Auto) 0.0 (0.0-0.2) X10*3/uL Abs Immat Gran (auto) 0.01 (0.00-0.03) X10*3/uL Absolute Neuts (auto) 4.8 (2.0-8.3) X10*3/uL Absolute Nucleated RBC 0.000 (0.0-0.012) X10*3/uL Nucleated RBC % (auto) 0.0 (0.0-0.2) /100WBC ESR (0-20) MM/HR D-Dimer 455 NG/ML Hold Blue Top SEE NOTE Sodium (135-145) mmol/L Potassium (3.3-5.1) mmol/L Chloride (96-108) mmol/L Carbon Dioxide (22-29) mmol/L Anion Gap (12-20) BUN (9-16) mg/dL Creatinine (0.5-1.4) mg/dL Estim Creat Clear Calc Estimated GFR Random Glucose (60-115) mg/dL Calcium (8.4-10.2) mg/dL Magnesium (1.6-2.6) mg/dL Total Bilirubin (0.0-1.0) mg/dL Direct Bilirubin (0.0-0.5) mg/dL AST (5-31) U/L ALT (0-31) U/L Alkaline Phosphatase (39-117) U/L Troponin I High Sens (<3.5-17.0) ng/L C-Reactive Protein (< or = 0.50) mg/dL B-Natriuretic Peptide (<100) pg/mL Total Protein (6.5-8.0) g/dL Albumin (3.5-5.0) g/dL Procalcitonin ng/mL Coronavirus (PCR) NEGATIVE (Negative) Influenza Type A (PCR) NEGATIVE (Negative) Influenza Type B (PCR) NEGATIVE (Negative) RSV RNA Qual (PCR) NEGATIVE (Negative) 07/19/20 07/19/20 07/19/20 Range/Units 12:18 12:19 12:19 WBC (4.8-10.8) X10*3/uL RBC (4.20-5.50) X10*6/uL Hgb (12.0-16.0) g/dl Hct (37-47) % MCV (80-98) fL MCH (27.0-33.0) pg MCHC (31.0-35.0) g/dl RDW (11.0-16.0) % Plt Count (160-400) X10*3/uL MPV (9.4-12.3) fL Immature Gran % (Auto) (0.0-0.4) % Neut % (Auto) (45-73) % Lymph % (Auto) (20-40) % [place] % (Auto) (2-11) % Eos % (Auto) (0-4) % Baso % (Auto) (0-2) % Lymph # (Auto) (1.2-4.9) X10*3/uL [place] # (Auto) (0.1-1.2) X10*3/uL Eos # (Auto) (0.0-0.4) X10*3/uL Baso # (Auto) (0.0-0.2) X10*3/uL Abs Immat Gran (auto) (0.00-0.03) X10*3/uL Absolute Neuts (auto) (2.0-8.3) X10*3/uL Absolute Nucleated RBC (0.0-0.012) X10*3/uL Nucleated RBC % (auto) (0.0-0.2) /100WBC ESR 45 H (0-20) MM/HR D-Dimer NG/ML Hold Blue Top Sodium 143 (135-145) mmol/L Potassium 4.7 (3.3-5.1) mmol/L Chloride 109 H (96-108) mmol/L Carbon Dioxide 22 (22-29) mmol/L Anion Gap 17 (12-20) BUN 11 (9-16) mg/dL Creatinine 0.76 (0.5-1.4) mg/dL Estim Creat Clear Calc 74.0 Estimated GFR > 60 Random Glucose 95 (60-115) mg/dL Calcium 8.4 (8.4-10.2) mg/dL Magnesium 2.1 (1.6-2.6) mg/dL Total Bilirubin 0.4 (0.0-1.0) mg/dL Direct Bilirubin < 0.2 (0.0-0.5) mg/dL AST 26 (5-31) U/L ALT 17 (0-31) U/L Alkaline Phosphatase 58 (39-117) U/L Troponin I High Sens < 3.5 (<3.5-17.0) ng/L C-Reactive Protein 4.98 H (< or = 0.50) mg/dL B-Natriuretic Peptide 25 (<100) pg/mL Total Protein 7.2 (6.5-8.0) g/dL Albumin 3.6 (3.5-5.0) g/dL Procalcitonin ng/mL Coronavirus (PCR) (Negative) Influenza Type A (PCR) (Negative) Influenza Type B (PCR) (Negative) RSV RNA Qual (PCR) (Negative) 07/19/20 Range/Units 12:19 WBC (4.8-10.8) X10*3/uL RBC (4.20-5.50) X10*6/uL Hgb (12.0-16.0) g/dl Hct (37-47) % MCV (80-98) fL MCH (27.0-33.0) pg MCHC (31.0-35.0) g/dl RDW (11.0-16.0) % Plt Count (160-400) X10*3/uL MPV (9.4-12.3) fL Immature Gran % (Auto) (0.0-0.4) % Neut % (Auto) (45-73) % Lymph % (Auto) (20-40) % [place] % (Auto) (2-11) % Eos % (Auto) (0-4) % Baso % (Auto) (0-2) % Lymph # (Auto) (1.2-4.9) X10*3/uL [place] # (Auto) (0.1-1.2) X10*3/uL Eos # (Auto) (0.0-0.4) X10*3/uL Baso # (Auto) (0.0-0.2) X10*3/uL Abs Immat Gran (auto) (0.00-0.03) X10*3/uL Absolute Neuts (auto) (2.0-8.3) X10*3/uL Absolute Nucleated RBC (0.0-0.012) X10*3/uL Nucleated RBC % (auto) (0.0-0.2) /100WBC ESR (0-20) MM/HR D-Dimer NG/ML Hold Blue Top Sodium (135-145) mmol/L Potassium (3.3-5.1) mmol/L Chloride (96-108) mmol/L Carbon Dioxide (22-29) mmol/L Anion Gap (12-20) BUN (9-16) mg/dL Creatinine (0.5-1.4) mg/dL Estim Creat Clear Calc Estimated GFR Random Glucose (60-115) mg/dL Calcium (8.4-10.2) mg/dL Magnesium (1.6-2.6) mg/dL Total Bilirubin (0.0-1.0) mg/dL Direct Bilirubin (0.0-0.5) mg/dL AST (5-31) U/L ALT (0-31) U/L Alkaline Phosphatase (39-117) U/L Troponin I High Sens (<3.5-17.0) ng/L C-Reactive Protein (< or = 0.50) mg/dL B-Natriuretic Peptide (<100) pg/mL Total Protein (6.5-8.0) g/dL Albumin (3.5-5.0) g/dL Procalcitonin 0.03 ng/mL Coronavirus (PCR) (Negative) Influenza Type A (PCR) (Negative) Influenza Type B (PCR) (Negative) RSV RNA Qual (PCR) (Negative) <Curtis Wilson MD - Last Filed: 07/19/20 13:18> ECG Data ECG #1: Attestation: I personally reviewed and interpreted this ECG as follows: <MISHA Coronado - Last Filed: 07/19/20 15:43> ECG interpretation date: 07/19/20 <MISHA Coronado - Last Filed: 07/19/20 15:43> ECG interpretation time: 11:40 <MISHA Coronado - Last Filed: 07/19/20 15:43> Interpretation: normal sinus rhythm, HR 82 bpm, low voltage QRS, normal PA interval, normal QTc, no ST segment elevations. <MISHA Coronado - Last Filed: 07/19/20 15:43> Discharge Plan Discharge Clinical Impression: Recurrent left pleural effusion <MISHA Coronado - Last Filed: 07/19/20 15:43> Patient Disposition: Home, Self-Care <MISHA Coronado - Last Filed: 07/19/20 15:43> Instructions: Pleural Effusion (ED) <MISHA Coronado - Last Filed: 07/19/20 15:43> Additional Instructions: Your CT scan today showed a small fluid outside of your left lung, unchanged from prior imaging. NO indication for drainage at this time. There was NO fluid seen around your heart. You were negative for COVID, Influenza & RSV. Your lab workup was unremarkable & your vital signs were normal. Take Tylenol 975 mg every 6 hours as needed for pain - do not exceed4,000 mg in 24 hours. Recommend following up with your doctor this week. Also follow up with your [facility]. If you develop worsening pain or difficulty breathing, come back to the ER for further evaluation. <MISHA Coronado - Last Filed: 07/19/20 15:43> Prescriptions: No Action atorvastatin 80 mg tablet 80 mg PO DAILY Qty: 90 RF: 6 ergocalciferol (vitamin D2) 1,250 mcg (50,000 unit) capsule 1,250 mcg PO QWEEK Qty: 4 RF: 3 pilocarpine HCl 5 mg tablet 5 mg PO TID Qty: 90 RF: 5 alendronate 70 mg tablet 70 mg PO QWEEK Qty: 12 RF: 0 polyethylene glycol 3350 17 gram/dose powder 17 g PO DAILY PRN (Reason: constipation) 30 Days Qty: 510 RF: 12 azathioprine [Imuran] 50 mg tablet 50 mg PO TID 30 Days Qty: 90 RF: 5 prednisone 10 mg tablet 10 mg PO DAILY 30 Days Qty: 30 RF: 5 famotidine 20 mg tablet 20 mg PO BID RF: 0 tramadol 50 mg tablet 50 mg PO BID PRNRF: 0 baclofen 20 mg tablet 20 mg PO BID RF: 0 folic acid 1 mg tablet 1 mg PO DAILY RF: 0 diphenhydramine HCl [Banophen] 25 mg tablet 25 mg PO Q6H PRNRF: 0 dodyihtvvh-iziyeeaohusbv-treq 50-325-40 mg capsule 1 cap PO Q6H PRNRF: 0 Advair HFA 115-21 mcg/actuation HFA aerosol inhaler 2 puff inhalation BID RF: 0 diclofenac sodium 75 mg tablet,delayed release (DR/EC) 75 mg PO BID RF: 0 cyclobenzaprine 10 mg tablet 10 mg PO TID RF: 0 furosemide [Lasix] 40 mg tablet 40 mg PO DAILY RF: 0 amitriptyline 25 mg tablet 25 mg PO TID RF: 0 omega 9-idi-djp-fish oil [Fish Oil] 1,200 (144-216) mg capsule 1 cap PO BID RF: 0 promethazine 25 mg tablet 25 mg PO QID PRNRF: 0 <MISHA Coronado - Last Filed: 07/19/20 15:43>
[2020-07-19 12:27] LABS: MANUAL DIFF FLAG NO
[2020-07-19 12:28] LABS: Eosinophils Percent Auto 0.2 % (0-4); Hematocrit 39.4 % (37-47); Hemoglobin 12.2 g/dl (12.0-16.0); Imm Gran Abs Auto 0.01 X10*3/uL (0.00-0.03); Imm Gran Pct Auto 0.2 % (0.0-0.4); Lymphocytes Absolute Auto 0.9 X10*3/uL (1.2-4.9); Lymphocytes Percent Auto 14.2 % (20-40); Mean Corpuscular Hemoglobin 28.2 pg (27.0-33.0); Mean Corpuscular Volume 91.2 fL (80-98); Mean Platelet Volume 9.9 fL (9.4-12.3); Monocytes Absolute Auto 0.4 X10*3/uL (0.1-1.2); Monocytes Percent Auto 5.8 % (2-11); Neutrophils Absolute Auto 4.8 X10*3/uL (2.0-8.3); Neutrophils Percent Auto 79.6 % (45-73); Platelet Count 211 X10*3/uL (160-400); Red Blood Count 4.32 X10*6/uL (4.20-5.50); Red Cell Distribution Width 16.6 % (11.0-16.0); White Blood Count 6.1 X10*3/uL (4.8-10.8)
[2020-07-19 13:00] LABS: B Type Natriuretic Peptide 25 pg/mL (<100); Troponin-I High Sensitivity < 3.5 ng/L (<3.5-17.0)
[2020-07-19 13:01] LABS: Alanine Aminotransferase 17 U/L (0-31); Albumin Level 3.6 g/dL (3.5-5.0); Alkaline Phosphatase 58 U/L (39-117); Anion Gap 17 (12-20); Aspartate Amino Transferase 26 U/L (5-31); Bilirubin Direct < 0.2 mg/dL (0.0-0.5); Bilirubin Total 0.4 mg/dL (0.0-1.0); Blood Urea Nitrogen 11 mg/dL (9-16); C Reactive Protein 4.98 mg/dL (< or = 0.50); Calcium 8.4 mg/dL (8.4-10.2); Carbon Dioxide 22 mmol/L (22-29); Chloride 109 mmol/L (96-108); Estimated Glomerular Filt Rate > 60; Glucose Random 95 mg/dL (60-115); Magnesium 2.1 mg/dL (1.6-2.6); Potassium 4.7 mmol/L (3.3-5.1); Sodium 143 mmol/L (135-145); Total Protein 7.2 g/dL (6.5-8.0)
[2020-07-19] MEDS: oxyCODONE HCl Immed Release 5 MG TABLET PO (13:01)
[2020-07-19 13:02] LABS: D Dimer 455 NG/ML
[2020-07-19 13:20] LABS: Erythrocyte Sedimentation Rate 45 MM/HR (0-20)
[2020-07-19 13:36] LABS: Procalcitonin 0.03 ng/mL
[2020-07-19] MEDS: iohexoL 350 MG/ML 75 ML INFUS..BTL IV (14:16)
[2020-07-19 14:41] VITALS: BP 129/66; PULSE 81; RESP 13; O2SAT 96
[2020-07-19 15:27] LABS: Influenza A PCR NEGATIVE (Negative); Influenza B PCR NEGATIVE (Negative); Resp Syncy Virus RNA Qual PCR NEGATIVE (Negative); SARS COV2 PCR INHOUSE NEGATIVE (Negative)
== END 2020-07-19 16:07 | disposition home or self-care (01) ==
PROVIDERS: Physician Assistant; Emergency Provider Emergency Medicine; PCP Internal Medicine
DX: M32.13 Lung involvement in systemic lupus erythematosus (principal); R07.9 Chest pain, unspecified; Z20.822 Contact with and (suspected) exposure to COVID-19; M35.00 Sjogren syndrome, unspecified; J45.909 Unspecified asthma, uncomplicated; J44.9 Chronic obstructive pulmonary disease, unspecified; Z79.52 Long term (current) use of systemic steroids; Z79.899 Other long term (current) drug therapy
CPT/HCPCS: 0241U; 36415; 71045; 71275; 80048; 80076; 83735; 83880; 84145; 84484; 85025; 85379; 85652; 86140; 93005; 99284; Q9967

== ENCOUNTER → 2020-07-21 07:49 | Outpatient (REF) | payer OTHER, SELFPAY ==
--- NOTE | ~2020-07-21 | NM_ITS ---
Lexiscan Myocardial perfusion study Indication: Chest pain, assess for coronary disease and ischemia Technique: The patient was brought in for a Lexiscan perfusion study on 07/21/2020 and was injected 0.4 mg of Lexiscan intravenously. Within a minute of this injection 25 mCi of sestamibi was given intravenously. Images were obtained using the SPECT gamma camera interlaced with the gating device. Images were obtained in supine position. Resting perfusion study was performed on 07/22/2020. Patient was administered 25 mCi of sestamibi intravenously at rest. Images were then obtained in supine position. Total DLP 84mGy-cm. Images were processed with the software and compared side to side in short axis, horizontal long axis and vertical long axis views. Findings: Raw acquisition was reviewed. The stress perfusion study showed mildly diminished tracer uptake in the distal part of anterior septum but otherwise unremarkable. With CT attenuation correction this improves significantly suggestive of soft tissue artifact. The gated study shows normal LV systolic function with calculated LVEF of 49%. Visually, LVEF appears higher than this. LV cavity is normal in size. The gated study shows normal wall thickening and contraction of segments. Resting study shows mildly diminished tracer uptake in the distal part of anterior septum but otherwise unremarkable. This improves with CT attenuation correction. Gating at rest reveals normal wall motion with ejection fraction at 53%. The findings are consistent with no definite reversible or fixed perfusion defects. NM/NM yomaira perf SPECT rest & str Impression: 1. Myocardial perfusion imaging study shows normal myocardial perfusion. No evidence of any ischemia or infarction. 2. Gated LVEF is 48% during stress and 53% during rest but visually appears higher. Correlate with echocardiogram. 3. Transient ischemic dilatation not present. EKG component of the test reported separately.
--- NOTE | 2020-07-21 07:51 | CA_ITS ---
Acquisition Time: 2020-07-21 08:04:52 Total Exercise Time: 00:02:00 Test Indications: Chest pain Medications: Protocol: LEXISCAN Max HR: 111 BPM 68% of Pred: 162 BPM Max BP: 156/078 mmHG Max Work Load: 1.0 METS Pharmacological stress test using Lexiscan while lying down. Pt tolerated well, denies any anginmal sx. Sx of dizziness and H/A reversed with Aminophyline 75 mg IV. EKG without any arrhythmias, non-diagnostic for ischemia. Nuclear images to follow. Normotensive response to exercise. Test reviewed with Dr. Morgan. Referred By: Avtar Morgan Overread By: Elise Vega NP
== END ==
LOC: HO.CARD 07:49
PROVIDERS: Visit Provider Internal Medicine
DX: I20.9 Angina pectoris, unspecified (principal); I31.3 Pericardial effusion (noninflammatory)
CPT/HCPCS: 78452; 93017; A9500; J0280; J2785

== ENCOUNTER → 2020-07-29 09:18 | Outpatient (REF) | payer OTHER, SELFPAY ==
--- NOTE | 2020-07-29 09:21 | CA_ITS ---
Transthoracic Echocardiogram Patient (Last, First, Middle): Erlinda Carbajal M Gender: Female Date of : 1960 Age: 59 Procedure Date: 07/29/2020 Procedure Type: Transthoracic Echocardiogram Location: OP Height: 154.94 cm Weight: 71.67 kg BSA: 1.71 m2 Heart Rate: bpm BP: 138 / 72 mmHg Registered Radiographer: ESA Referring MD: Avtar Morgan MD Symptoms: I31.3 - Pericardial effusion (noninflammatory) Study Quality: Fair ECG Rhythm: Sinus Conclusions: - The left ventricular systolic function is normal. The visually estimated ejection fraction is between 65-70%. - No obvious valvular pathology seen on this study. - Mild pulmonary hypertension is present. - No significant pericardial effusion noted. Findings Left Ventricle Normal left ventricular cavity size. There is normal left ventricular wall thickness. The left ventricular systolic function is normal. The visually estimated ejection fraction is between 65-70%. There is no evidence of regional wall motion abnormalities. E/E prime ratio is between 8 and 15 consistent with indeterminate filling pressures. Evidence suggests grade I (mild) diastolic dysfunction. Right Ventricle Normal right ventricular cavity size and systolic function. Atria The left atrium is normal in size. The right atrium is normal in size. Aortic Valve There is a normal trileaflet aortic valve. There is no aortic valve stenosis. There is no aortic valve regurgitation. Mitral Valve The mitral valve appears normal. There is trace mitral valve regurgitation. There is no mitral valve stenosis. Pulmonic Valve The pulmonic valve was not well visualized. Tricuspid Valve The tricuspid valve was not well visualized. There is mild tricuspid valve regurgitation. The right ventricular systolic pressure is 36 mmHg. Mild pulmonary hypertension is present. Great Vessels The aortic annulus, sinuses of valsalva, and asc aorta are normal in size. Venous The inferior vena cava is normal in size and collapses greater than 50% with inspiration. Pericardium/Pleural Prominent epicardial adipose tissue noted. There is a trivial pericardial effusion. Possible small amount of exudate material over right ventricle. Prior Study Comparison No change compared to prior study dated: 10/03/2019. Recommendations, Care & Conclusions No obvious valvular pathology seen on this study. Measurements 2D Linear Measurements IVSd: 0.81 0.6-0.9/0.6-1.0 cm LVIDd: 4.09 3.9-5.3/4.2-5.9 cm LVIDd Index: 2.39 2.4-3.2/2.2-3.1 cm/m2 LVIDs: 3.05 2.0-3.6 cm LVPWd: 1.25 0.7-1.1 cm Ao Root: 2.40 2.1-3.5 cm LA Diam: 3.70 2.7-3.8/3.0-4.0 cm LAIDs Index: 2.16 1.5-2.3 cm/m2 LV Mass: 170.64 67-162/88-224 g LV Mass Index: 99.79 43-95/49-115 g/m2 LVOT Diam: 1.90 3.0+(-)1.3 cm 2D Systolic Function EF 4C: 63.30 >55% Mitral Valve MV Pk E: 0.73 MV PK A: 0.94 MV Decel Time: 196.00 E/A: 0.80 E'Lateral: 7.62 E'Medial: 7.72 E/E' Med: 9.40 E/E' Lat: 9.60 PHT: 57.00 MVA PHT: 3.86 Decel [place]: 3.73 Aortic Valve AoV Pk Noe: 1.48 AoV Pk Grad: 9.00 LVOT LVOT Pk Noe: 1.08 LVOT Mn Noe: 0.77 LVOT VTI: 0.24 LVOT Pk Grad: 5.00 LVOT Mn Grad: 3.00 LVOT Diam: 1.90 LVOT Area: 2.84 Diastolic Function MV Pk E: 0.73 MV Pk A: 0.94 E/A: 0.80 E'Medial: 7.72 E/E' Med: 9.40 E' Laterial: 7.62 E/E' Lat: 9.60 Tricuspid Valve TR Pk Noe: 2.89 TR Pk Grad: 33.00 RA Press: 3.00 RVSP: 36.00 Great Vessels Aorta Ao Root-2D: 2.40 2.0-3.7 cm Ao Asc: 3.00 2.1-3.4 cm Updated in Other Vendor System with Status of Final Avtar Morgan MD electronically signed on 07/30/2020 12:17:10 PM with status of Final
== END ==
LOC: HO.CARD 09:18
PROVIDERS: PCP Internal Medicine; Visit Provider Internal Medicine
DX: I31.3 Pericardial effusion (noninflammatory) (principal); R06.00 Dyspnea, unspecified
CPT/HCPCS: 93005; 93306; 94060; 94727; 94729; 99212

== ENCOUNTER 2020-08-02 08:15 | Outpatient (REF) | payer OTHER, SELFPAY ==
[2020-08-02 09:00] LABS: MANUAL DIFF FLAG NO
[2020-08-02 09:13] LABS: Eosinophils Percent Auto 0.8 % (0-4); Hematocrit 40.7 % (37-47); Hemoglobin 12.3 g/dl (12.0-16.0); Imm Gran Abs Auto 0.02 X10*3/uL (0.00-0.03); Imm Gran Pct Auto 0.4 % (0.0-0.4); Lymphocytes Absolute Auto 1.8 X10*3/uL (1.2-4.9); Lymphocytes Percent Auto 34.7 % (20-40); Mean Corpuscular HGB Conc 30.2 g/dl (31.0-35.0); Mean Corpuscular Hemoglobin 27.6 pg (27.0-33.0); Mean Corpuscular Volume 91.3 fL (80-98); Mean Platelet Volume 10.3 fL (9.4-12.3); Monocytes Absolute Auto 0.4 X10*3/uL (0.1-1.2); Monocytes Percent Auto 8.4 % (2-11); Neutrophils Absolute Auto 2.9 X10*3/uL (2.0-8.3); Neutrophils Percent Auto 55.7 % (45-73); Platelet Count 241 X10*3/uL (160-400); Red Blood Count 4.46 X10*6/uL (4.20-5.50); Red Cell Distribution Width 16.7 % (11.0-16.0); White Blood Count 5.1 X10*3/uL (4.8-10.8)
[2020-08-02 09:36] LABS: Alanine Aminotransferase 12 U/L (0-31); Albumin Level 3.7 g/dL (3.5-5.0); Alkaline Phosphatase 59 U/L (39-117); Anion Gap 15 (12-20); Aspartate Amino Transferase 14 U/L (5-31); Bilirubin Total 0.2 mg/dL (0.0-1.0); Blood Urea Nitrogen 19 mg/dL (9-16); Carbon Dioxide 26 mmol/L (22-29); Chloride 109 mmol/L (96-108); Cholesterol 297 mg/dL; Estimated Glomerular Filt Rate > 60; Glucose Fasting 86 mg/dL (60-99); HDL Cholesterol 46 mg/dL; LDL Cholesterol Calculated 200 mg/dl; Potassium 4.5 mmol/L (3.3-5.1); Sodium 145 mmol/L (135-145); Total Protein 6.9 g/dL (6.5-8.0); Triglycerides 257 mg/dL
== END 2020-08-02 08:16 | disposition home or self-care (01) ==
LOC: HO.LAB 08:15
PROVIDERS: PCP Internal Medicine; Visit Provider Internal Medicine
DX: R79.89 Other specified abnormal findings of blood chemistry (principal); E78.00 Pure hypercholesterolemia, unspecified; E66.9 Obesity, unspecified; I10 Essential (primary) hypertension
CPT/HCPCS: 36415; 80053; 80061; 84443; 85025

== ENCOUNTER → 2020-08-12 15:43 | Outpatient (BNVA) | payer OTHER, SELFPAY | PROVIDERS: PCP Internal Medicine; Visit Provider Anesthesiology | DX: M47.816 Spondylosis without myelopathy or radiculopathy, lumbar region (principal); M54.5 Low back pain | CPT/HCPCS: 99202 ==

== ENCOUNTER → 2020-08-16 12:28 | Outpatient (BNVA) | payer OTHER, SELFPAY | PROVIDERS: PCP Internal Medicine; Visit Provider Internal Medicine | DX: I31.3 Pericardial effusion (noninflammatory) (principal); R06.02 Shortness of breath; R07.2 Precordial pain; M32.9 Systemic lupus erythematosus, unspecified | CPT/HCPCS: 99212 ==

== ENCOUNTER → 2020-08-19 14:53 | Outpatient (BNVA) | payer OTHER, SELFPAY | PROVIDERS: PCP Internal Medicine; Visit Provider Internal Medicine Pulmonary Disease | DX: J45.909 Unspecified asthma, uncomplicated (principal); R06.00 Dyspnea, unspecified | CPT/HCPCS: 99212 ==

== ENCOUNTER 2020-10-19 10:04 | Outpatient (REF) | payer OTHER, SELFPAY ==
[2020-10-19 11:43] LABS: MANUAL DIFF FLAG NO
[2020-10-19 11:59] LABS: Basophils Percent Auto 0.1 % (0-2); Eosinophils Percent Auto 0.1 % (0-4); Hematocrit 38.9 % (37-47); Hemoglobin 11.9 g/dl (12.0-16.0); Imm Gran Abs Auto 0.04 X10*3/uL (0.00-0.03); Imm Gran Pct Auto 0.6 % (0.0-0.4); Lymphocytes Absolute Auto 0.6 X10*3/uL (1.2-4.9); Lymphocytes Percent Auto 8.6 % (20-40); Mean Corpuscular HGB Conc 30.6 g/dl (31.0-35.0); Mean Corpuscular Hemoglobin 27.8 pg (27.0-33.0); Mean Corpuscular Volume 90.9 fL (80-98); Mean Platelet Volume 9.9 fL (9.4-12.3); Monocytes Absolute Auto 0.3 X10*3/uL (0.1-1.2); Monocytes Percent Auto 4.7 % (2-11); Neutrophils Absolute Auto 6.1 X10*3/uL (2.0-8.3); Neutrophils Percent Auto 85.9 % (45-73); Platelet Count 230 X10*3/uL (160-400); Red Blood Count 4.28 X10*6/uL (4.20-5.50); White Blood Count 7.1 X10*3/uL (4.8-10.8)
[2020-10-19 12:38] LABS: Alanine Aminotransferase 11 U/L (0-31); Albumin Level 3.6 g/dL (3.5-5.0); Alkaline Phosphatase 59 U/L (39-117); Anion Gap 12 (12-20); Aspartate Amino Transferase 15 U/L (5-31); Bilirubin Total 0.4 mg/dL (0.0-1.0); Blood Urea Nitrogen 13 mg/dL (9-16); C Reactive Protein 0.59 mg/dL (< or = 0.50); Calcium 8.7 mg/dL (8.4-10.2); Carbon Dioxide 25 mmol/L (22-29); Chloride 111 mmol/L (96-108); Estimated Glomerular Filt Rate > 60; Glucose Random 103 mg/dL (60-115); Potassium 4.2 mmol/L (3.3-5.1); Sodium 144 mmol/L (135-145); Total Protein 6.7 g/dL (6.5-8.0)
[2020-10-19 13:58] LABS: Erythrocyte Sedimentation Rate 30 MM/HR (0-20)
[2020-10-19 14:02] LABS: Glucose Urine UA NEG (NEG); Leukocyte Esterase Urine NEG (NEG); Nitrite Urine NEG (NEG); PH 6.5 (5.0-8.0); Urine Blood NEG (NEG); Urine Ketones NEG (NEG); Urine Protein NEG (NEG-TRACE)
[2020-10-19 14:06] LABS: Appearance Urine CLEAR; Color Urine YELLOW
[2020-10-19 14:16] LABS: RBC Urine 0 /HPF (0); WBC Urine 0 /HPF (0-4)
[2020-10-20 12:27] LABS: Anti DNA DS Antibody 1 IU/mL
[2020-10-20 12:51] LABS: Complement C3 30 mg/dL (83-193)
== END 2020-10-19 10:05 | disposition home or self-care (01) ==
LOC: HO.LAB 10:04
PROVIDERS: PCP Internal Medicine; Visit Provider Student in an Organized Health Care Education/Training Program
DX: M32.9 Systemic lupus erythematosus, unspecified (principal); M35.00 Sjogren syndrome, unspecified; M81.0 Age-related osteoporosis without current pathological fracture; Z79.52 Long term (current) use of systemic steroids
CPT/HCPCS: 36415; 80053; 81001; 85025; 85652; 86140; 86160; 86225; 99212

== ENCOUNTER 2020-10-21 14:00 | Outpatient (RCR) | payer OTHER, SELFPAY ==
--- NOTE | 2020-09-10 16:14 | MHC.PT.EP ---
[facility] [place] [facility] [place] [facility] [place] Office [address] [phone] F: [phone] F: [phone] F: [phone] F: [phone] Physical Therapy Plan of Care Date of Evaluation: Date of Surgery: N/A Diagnosis: low back pain Assessment: pt presents to physical therapy with pain, decreased range of motion, decreased strength, impaired functional mobility, impaired postural awareness, and gait deviations. pt is a good candidate for skilled PT due to age, potential remediation of impairments, typical disease/condition progression and prognosis, comorbidities, and motivation. pt would benefit from tailored strengthening and stretching exercise program, functional training, gait training, postural re-training, neuromuscular re-education, modalities as needed for pain, equipment safety demonstration. Frequency and Duration: The patient will be seen 2x/wk for 4 wks Short Term Goals: pt will be I w/ HEP to promote self-management of condition. pt will improve lumbar flexion by 25% to facilitate ease in lower body dressing. Toe Former Stitchdowns Goals: pt will report <2/10 low back pain w/ sit to stand transfers to promote functional independence. pt will increase all hip strength by 1 MMT grade to promote ease in functional mobility and strength. Treatment Plan: Modalities to reduce pain, spasms and effusion. Manual therapy to restore motion and function. Therapeutic exercise to improve strength and flexibility. Neuromuscular re-education for posture and balance. Therapeutic activities to return to functional activities of daily living. Electronically signed by: Corrine Mclaughlin PT, DPT Please sign and return to therapist. Thank you for your referral.
--- NOTE | 2020-10-21 14:46 | MHC.PT.DC ---
[facility] [place] Office [place] Office [place] Office [address] [phone] F: [phone] F: [phone] F: [phone] F: [phone] Physical Therapy Discharge Report Diagnosis: low back pain Date of Surgery: N/A Date of Evaluation: 09/10/20 Date of Discharge: 10/21/20 Treatments to Date: 8 Cancellations to Date: 2 No Shows to Date: 0 Discharge Status: Improved Function Independent with HEP Discharge Summary: The patient reported overall her back pain is better but she is still experiencing pain localized to sacrum which she stated is due to history of disc problems. She has improved regarding her tolerance for functional activity and therapeutic exercise. She is able to go through a standing exercise program with hand held assist with minimal to no cueing for correct form. She is discharged from this physical therapy plan of care to her home exercise program. Electronically signed by: Corrine Mclaughlin PT, DPT Please sign and return to therapist. Thank you for your referral.
== END 2020-10-21 14:47 | disposition home or self-care (01) ==
LOC: HO.PT 14:00
PROVIDERS: PCP Internal Medicine; Visit Provider Anesthesiology
DX: M47.816 Spondylosis without myelopathy or radiculopathy, lumbar region (principal)
CPT/HCPCS: 97110; 97150; 97162

== ENCOUNTER 2020-11-09 11:26 | Emergency (ER) | payer OTHER, SELFPAY ==
--- NOTE | ~2020-11-09 | XR_ITS ---
EXAMINATION: XR CHEST CLINICAL INFORMATION: Shortness of breath, recurrent left effusion. COMPARISON: Chest radiographs 07/19/2020, 07/08/2020, 06/29/2020, CTA chest 07/19/2020 TECHNIQUE: Portable upright AP view of the chest was obtained. FINDINGS: There is small left effusion left base blunting lateral costophrenic angle. There may be trace fluid at the right costophrenic angle. Hypoventilatory changes are seen at the bases. There is no lobar or segmental airspace consolidation or air bronchograms. The heart is within normal size and the vascularity is normal. No interstitial edema. XR/XR chest 1V IMPRESSION: 1. Small left effusion. Probable trace right effusion. 2. Vascularity normal.
[2020-11-09 12:49] VITALS: BP 150/54; PULSE 98; RESP 18; TEMP 37.4; O2SAT 91; BMI 33.4
--- NOTE | 2020-11-09 12:52 | PC.NURSE ---
Due to sats in low 90s pt brought back to bed and placed on 2liters NC.
[2020-11-09 13:01] LABS: COVID-19 Test Negative (Negative)
--- NOTE | 2020-11-09 13:06 | ECG_ITS ---
Test Reason : SOB Blood Pressure : / mmHG Vent. Rate : 095 BPM Atrial Rate : 095 BPM P-R Int : 122 ms QRS Dur : 064 ms QT Int : 366 ms P-R-T Axes : 011 -01 046 degrees QTc Int : 459 ms Normal sinus rhythm Low voltage QRS Nonspecific T wave abnormality Abnormal ECG When compared with ECG of 19-JUL-2020 11:34, QT has lengthened Referred By: Brianne Pineda Electronically Signed By:ADAM GARCIA MD
--- NOTE | 2020-11-09 13:08 | ED.GENADULT ---
HPI - General Adult General Chief complaint: General Medical Stated complaint: Flu like symptoms Time Seen by Provider: 11/09/20 13:00 Source: patient Mode of arrival: ambulatory Limitations: no limitations History of Present Illness HPI narrative: Patient comes emergency room complaining of diffuse body aches, chills, cough, nausea. All of her symptoms started yesterday. Patient states she has already been vaccinated for COVID-19. Patient denies vomiting diarrhea, had a temperature of 100.0 degrees yesterday. Patient states that she has history of recurrent pleural effusions, last time that she needed thoracentesis was in June of 2019. Patient sees Dr. luis from pulmonology, patient has history of chronic dyspnea, not oxygen dependent, reason for dyspnea is multifactorial according to Dr. marco a adams, likely underlying obesity/deconditioning and possible cardiac etiologies. Patient chronically on Spiriva and Trelegy Related Data Home Medications Medication Instructions Recorded Confirmed amitriptyline 25 mg tablet 25 mg PO TID tab 01/30/20 08/16/20 baclofen 20 mg tablet 20 mg PO BID 01/30/20 08/16/20 cyclobenzaprine 10 mg tablet 10 mg PO TID 01/30/20 08/16/20 diclofenac sodium 75 mg 75 mg PO BID 01/30/20 08/16/20 tablet,delayed release diphenhydramine HCl 25 mg tablet 25 mg PO Q6H PRN 01/30/20 08/16/20 folic acid 1 mg tablet 1 mg PO DAILY 01/30/20 08/16/20 furosemide 40 mg tablet 40 mg PO DAILY 01/30/20 08/16/20 omega 5-skt-rha-fish oil 1,200 mg 1 cap PO BID cap 01/30/20 08/16/20 (144 mg-216 mg) capsule promethazine 25 mg tablet 25 mg PO QID PRN 01/30/20 08/16/20 tramadol 50 mg tablet 50 mg PO BID PRN 05/06/20 08/16/20 tqlhbvjarm-dahsqvoddozqw-qltkqpaj 1 tab PO Q12H PRN 08/12/20 08/16/20 50 mg-325 mg-40 mg tablet calcium carbonate 600 mg (1,500 1 tab PO DAILY 08/12/20 08/16/20 mg)-vitamin D3 200 unit tablet omega-3 fatty acids-fish oil 360 1 cap PO BID 08/12/20 08/16/20 mg-1,200 mg capsule Previous Rx's Medication Instructions Recorded atorvastatin 80 mg tablet 80 mg PO DAILY #90 tab 02/16/20 polyethylene glycol 3350 17 17 g PO DAILY PRN 30 Days #510 g 07/11/20 gram/dose oral powder alendronate 70 mg tablet 70 mg PO QWEEK #12 tab 07/27/20 ergocalciferol (vitamin D2) 1,250 1,250 mcg PO QWEEK #4 cap 07/30/20 mcg (50,000 unit) capsule doxycycline hyclate 100 mg tablet 100 mg PO BID #14 tab 08/13/20 famotidine 20 mg tablet 20 mg PO BID PRN #60 tab 08/19/20 fluticasone fur. 100 mcg-umeclid 1 inh INHALATION DAILY 30 Days #1 08/19/20 62.5 mcg-vilant 25 mcg ea inhalat.powder azathioprine 50 mg tablet 50 mg PO TID 30 Days #90 tab 09/27/20 pilocarpine HCl 5 mg tablet 5 mg PO TID #90 tab 10/10/20 prednisone 10 mg tablet 10 mg PO DAILY 30 Days #30 tab 10/21/20 Allergies Allergy/AdvReac Type Severity Reaction Status Date / Time hydroxychloroquine Allergy Intermediate problem Verified 11/09/20 12:49 [From Plaquenil] with eyes methotrexate [METHOTREXATE] Allergy Unknown NAUSEA & Verified 11/09/20 12:49 VOMITING Sulfa (Sulfonamide Allergy Unknown swelling Verified 11/09/20 12:49 Antibiotics) [SULFA (SULFONAMIDE ANTIBIOTICS)] vancomycin [VANCOMYCIN] Allergy Unknown Low BP Verified 11/09/20 12:49 Review of Systems Review of Systems: Constitutional : No Weight loss, complaining of fever, chills, fatigue and generalized malaise ENT/Mouth : No Hearing loss, No Ear Pain, No Nasal Congestion, No Sinus Pain, No Hoarseness, No sore throat, No Rhinorrhea, No Swallowing Difficulty Eyes: No Eye Pain, No Swelling, No Redness, No Foreign Body, No Discharge, No Vision Changes Cardiovascular : No Chest Pain, No SOB, No Dyspnea on Exertion, No Orthopnea, No Edema, No Palpitations Respiratory : Complaining of dry Cough, No Sputum, No Wheezing, No Smoke Exposure, No Dyspnea Gastrointestinal : No Nausea, No Vomiting, No Diarrhea, No Constipation, No abdominal Pain, No Hematochezia, No Melena Genitourinary : no irregular bleeding, No Dysuria, No Urinary Frequency, No Hematuria, No Urinary Incontinence, No Urgency, No Flank Pain, No Urinary Flow Changes, No Hesitancy Musculoskeletal : No joint pain, No Myalgias, No Joint Swelling Skin : No Skin Lesions, No rash Neuro : No Weakness, No Numbness, No Paresthesias, No Loss of Consciousness, No Dizziness, No Headache Psych : No Anxiety/Panic, No Depression, No SI/HI/AH/VH, No Social Issues, Heme/Lymph: No Bruising, No Bleeding,No Lymphadenopathy Endocrine : No Polyuria, No Polydipsia, No Temperature Intolerance [facility] Past Medical History Medical History Elevated LFTs Obesity (BMI 30-39.9) Pericardial effusion Pure hypercholesterolemia Surgical History History of bronchoscopy History of skin graft History of surgery History of thoracentesis Hx of section Hx of tubal ligation Status post debridement Family History Family History Father Medical history unknown Mother Diabetes Hypertension Social History Social History (Updated 10/19/20 @ 10:16 by Eriberto Fermin LPN) Alcohol intake: never Patient Tobacco Use Status: Never used Tobacco e-Cigarette/Vaping Use: Never Used Advance Directives: Yes Advance Directives Information Provided: Yes Advance Directives on File: No Sexual orientation: Straight/Heterosexual Gender identity: female Physical Exam Vital Signs: Vital Signs: Last Vital Signs Temp 99.4 F 11/09/20 12:49 Pulse 98 11/09/20 12:49 Resp 18 11/09/20 12:49 BP 150/54 H 11/09/20 12:49 Pulse Ox 91 L 11/09/20 12:49 Body Mass Index 33.4 Appearance: Alert. Oriented X3. No acute distress. Seems a bit anxious Eyes: Pupils equal, round and reactive to light. ENT: Pharynx normal. Neck: Normal inspection. Neck supple. No lymph nodes noted. No crepitus CVS: Normal heart rate and rhythm. Pulses normal. Normal S1 and S2 Respiratory: No respiratory distress. Decreased breath sounds bilaterally, No Wheezing. No rales Abdomen: Soft and nontender. No rigidity. No distention. Skin: Skin warm and dry. Normal skin color. Normal skin turgor. Extremities: No lower extremity edema. No lower extremity edema. No Lacerations. No Rash Neuro: Oriented X 3. No motor deficit. No sensory deficit. Moving all extermities. No slurred speech. Course Course Course Narrative: Patient's chest x-ray shows a small pleural effusion, at this time thoracentesis is not indicated. Patient was able to walk around the emergency room, oxygen saturation remained between 90-95%. Patient did not feel short of breath. Patient's symptoms likely to a viral syndrome. Antibiotic not recommended at this time. Medical Decision Making Lab Data Result diagrams: 11/09/20 13:29 11/09/20 13:29 Labs: Lab Results 11/09/20 11/09/20 11/09/20 Range/Units 12:41 13:29 13:29 WBC 6.6 (4.8-10.8) X10*3/uL RBC 4.56 (4.20-5.50) X10*6/uL Hgb 12.8 (12.0-16.0) g/dl Hct 40.2 (37-47) % MCV 88.2 (80-98) fL MCH 28.1 (27.0-33.0) pg MCHC 31.8 (31.0-35.0) g/dl RDW 17.9 H (11.0-16.0) % Plt Count 227 (160-400) X10*3/uL MPV 9.2 L (9.4-12.3) fL Immature Gran % (Auto) 0.5 H (0.0-0.4) % Neut % (Auto) 86.0 H (45-73) % Lymph % (Auto) 9.0 L (20-40) % [place] % (Auto) 4.3 (2-11) % Eos % (Auto) 0.2 (0-4) % Baso % (Auto) 0.0 (0-2) % Lymph # (Auto) 0.6 L (1.2-4.9) X10*3/uL [place] # (Auto) 0.3 (0.1-1.2) X10*3/uL Eos # (Auto) 0.0 (0.0-0.4) X10*3/uL Baso # (Auto) 0.0 (0.0-0.2) X10*3/uL Abs Immat Gran (auto) 0.03 (0.00-0.03) X10*3/uL Absolute Neuts (auto) 5.7 (2.0-8.3) X10*3/uL Absolute Nucleated RBC 0.000 (0.0-0.012) X10*3/uL Nucleated RBC % (auto) 0.0 (0.0-0.2) /100WBC Sodium 140 (135-145) mmol/L Potassium 4.0 (3.3-5.1) mmol/L Chloride 105 (96-108) mmol/L Carbon Dioxide 29 (22-29) mmol/L Anion Gap 10 L (12-20) BUN 11 (9-16) mg/dL Creatinine 0.82 (0.5-1.4) mg/dL Estim Creat Clear Calc 70.9 Estimated GFR > 60 Random Glucose 110 (60-115) mg/dL Calcium 8.9 (8.4-10.2) mg/dL Total Bilirubin 0.3 (0.0-1.0) mg/dL Direct Bilirubin < 0.2 (0.0-0.5) mg/dL AST 17 (5-31) U/L ALT 11 (0-31) U/L Alkaline Phosphatase 60 (39-117) U/L B-Natriuretic Peptide (<100) pg/mL Total Protein 7.2 (6.5-8.0) g/dL Albumin 3.8 (3.5-5.0) g/dL COVID-19 (SEAN) Negative (Negative) COVID-19 Clin Com See Note 11/09/20 Range/Units 13:29 WBC (4.8-10.8) X10*3/uL RBC (4.20-5.50) X10*6/uL Hgb (12.0-16.0) g/dl Hct (37-47) % MCV (80-98) fL MCH (27.0-33.0) pg MCHC (31.0-35.0) g/dl RDW (11.0-16.0) % Plt Count (160-400) X10*3/uL MPV (9.4-12.3) fL Immature Gran % (Auto) (0.0-0.4) % Neut % (Auto) (45-73) % Lymph % (Auto) (20-40) % [place] % (Auto) (2-11) % Eos % (Auto) (0-4) % Baso % (Auto) (0-2) % Lymph # (Auto) (1.2-4.9) X10*3/uL [place] # (Auto) (0.1-1.2) X10*3/uL Eos # (Auto) (0.0-0.4) X10*3/uL Baso # (Auto) (0.0-0.2) X10*3/uL Abs Immat Gran (auto) (0.00-0.03) X10*3/uL Absolute Neuts (auto) (2.0-8.3) X10*3/uL Absolute Nucleated RBC (0.0-0.012) X10*3/uL Nucleated RBC % (auto) (0.0-0.2) /100WBC Sodium (135-145) mmol/L Potassium (3.3-5.1) mmol/L Chloride (96-108) mmol/L Carbon Dioxide (22-29) mmol/L Anion Gap (12-20) BUN (9-16) mg/dL Creatinine (0.5-1.4) mg/dL Estim Creat Clear Calc Estimated GFR Random Glucose (60-115) mg/dL Calcium (8.4-10.2) mg/dL Total Bilirubin (0.0-1.0) mg/dL Direct Bilirubin (0.0-0.5) mg/dL AST (5-31) U/L ALT (0-31) U/L Alkaline Phosphatase (39-117) U/L B-Natriuretic Peptide 15 (<100) pg/mL Total Protein (6.5-8.0) g/dL Albumin (3.5-5.0) g/dL COVID-19 (SEAN) (Negative) COVID-19 Clin Com Discharge Plan Discharge Clinical Impression: Acute viral syndrome Patient Disposition: Home, Self-Care Instructions: Viral Syndrome (ED) Additional Instructions: Please follow-up with your primary care physician tomorrow. If you have any worsening or new symptoms, please return to the emergency room or call 911 Prescriptions: No Action atorvastatin 80 mg tablet 80 mg PO DAILY Qty: 90 RF: 6 polyethylene glycol 3350 17 gram/dose powder 17 g PO DAILY PRN (Reason: constipation) 30 Days Qty: 510 RF: 12 alendronate 70 mg tablet 70 mg PO QWEEK Qty: 12 RF: 1 ergocalciferol (vitamin D2) 1,250 mcg (50,000 unit) capsule 1,250 mcg PO QWEEK Qty: 4 RF: 3 famotidine 20 mg tablet 20 mg PO BID PRN (Reason: heartburn) Qty: 60 RF: 5 azathioprine [Imuran] 50 mg tablet 50 mg PO TID 30 Days Qty: 90 RF: 5 pilocarpine HCl 5 mg tablet 5 mg PO TID Qty: 90 RF: 5 prednisone 10 mg tablet 10 mg PO DAILY 30 Days Qty: 30 RF: 5 omega-3 fatty acids-fish oil 360-1,200 mg capsule 1 cap PO BID RF: 0 ueotopjjli-ekbxtlozwqogu-mhjp 50-325-40 mg tablet 1 tab PO Q12H PRNRF: 0 calcium carbonate-vitamin D3 600 mg(1,500mg) -200 unit tablet 1 tab PO DAILY RF: 0 doxycycline hyclate 100 mg tablet 100 mg PO BID Qty: 14 RF: 0 tramadol 50 mg tablet 50 mg PO BID PRNRF: 0 baclofen 20 mg tablet 20 mg PO BID RF: 0 folic acid 1 mg tablet 1 mg PO DAILY RF: 0 diphenhydramine HCl [Banophen] 25 mg tablet 25 mg PO Q6H PRNRF: 0 diclofenac sodium 75 mg tablet,delayed release (DR/EC) 75 mg PO BID RF: 0 cyclobenzaprine 10 mg tablet 10 mg PO TID RF: 0 furosemide [Lasix] 40 mg tablet 40 mg PO DAILY RF: 0 amitriptyline 25 mg tablet 25 mg PO TID RF: 0 omega 2-ome-rnp-fish oil [Fish Oil] 1,200 (144-216) mg capsule 1 cap PO BID RF: 0 promethazine 25 mg tablet 25 mg PO QID PRNRF: 0 Trelegy Ellipta 100-62.5-25 mcg blister with device 1 inh inhalation DAILY 30 Days Qty: 1 RF: 6
[2020-11-09 13:39] LABS: MANUAL DIFF FLAG NO
[2020-11-09 13:42] LABS: Eosinophils Percent Auto 0.2 % (0-4); Hematocrit 40.2 % (37-47); Hemoglobin 12.8 g/dl (12.0-16.0); Imm Gran Abs Auto 0.03 X10*3/uL (0.00-0.03); Imm Gran Pct Auto 0.5 % (0.0-0.4); Lymphocytes Absolute Auto 0.6 X10*3/uL (1.2-4.9); Mean Corpuscular HGB Conc 31.8 g/dl (31.0-35.0); Mean Corpuscular Hemoglobin 28.1 pg (27.0-33.0); Mean Corpuscular Volume 88.2 fL (80-98); Mean Platelet Volume 9.2 fL (9.4-12.3); Monocytes Absolute Auto 0.3 X10*3/uL (0.1-1.2); Monocytes Percent Auto 4.3 % (2-11); Neutrophils Absolute Auto 5.7 X10*3/uL (2.0-8.3); Platelet Count 227 X10*3/uL (160-400); Red Blood Count 4.56 X10*6/uL (4.20-5.50); Red Cell Distribution Width 17.9 % (11.0-16.0); White Blood Count 6.6 X10*3/uL (4.8-10.8)
[2020-11-09 14:08] LABS: Alanine Aminotransferase 11 U/L (0-31); Albumin Level 3.8 g/dL (3.5-5.0); Alkaline Phosphatase 60 U/L (39-117); Anion Gap 10 (12-20); Aspartate Amino Transferase 17 U/L (5-31); Bilirubin Direct < 0.2 mg/dL (0.0-0.5); Bilirubin Total 0.3 mg/dL (0.0-1.0); Blood Urea Nitrogen 11 mg/dL (9-16); Calcium 8.9 mg/dL (8.4-10.2); Carbon Dioxide 29 mmol/L (22-29); Chloride 105 mmol/L (96-108); Creatinine Clr Calc Pharmacy 70.9; Estimated Glomerular Filt Rate > 60; Glucose Random 110 mg/dL (60-115); Sodium 140 mmol/L (135-145); Total Protein 7.2 g/dL (6.5-8.0)
[2020-11-09 14:17] LABS: B Type Natriuretic Peptide 15 pg/mL (<100)
[2020-11-09 15:30] VITALS: PULSE 105; RESP 18; O2SAT 95
--- NOTE | 2020-11-09 15:51 | PC.NURSE ---
Patient ambulated in hallway on room air per doctors request with continuous pulse ox. Pt had no sob during ambulation. Sats were between 92-95%
== END 2020-11-09 16:00 | disposition home or self-care (01) ==
PROVIDERS: Emergency Provider Emergency Medicine; PCP Internal Medicine
DX: B34.9 Viral infection, unspecified (principal); Z20.822 Contact with and (suspected) exposure to COVID-19; R50.9 Fever, unspecified; M32.9 Systemic lupus erythematosus, unspecified
CPT/HCPCS: 36415; 71045; 80048; 80076; 83880; 85025; 87635; 93005; 99283; 99284

== ENCOUNTER 2020-12-01 15:45 | Emergency (ER) | payer OTHER, SELFPAY ==
--- NOTE | 2020-12-01 | ECG_ITS ---
Test Reason : ATHSMA Blood Pressure : / mmHG Vent. Rate : 088 BPM Atrial Rate : 088 BPM P-R Int : 118 ms QRS Dur : 058 ms QT Int : 342 ms P-R-T Axes : 041 009 019 degrees QTc Int : 413 ms Normal sinus rhythm Low voltage QRS Borderline ECG When compared with ECG of 09-NOV-2020 14:18, Nonspecific T wave abnormality no longer evident in Lateral leads QT has shortened Referred By: Generic ED Physician Electronically Signed By:ADAM GARCIA MD
--- NOTE | ~2020-12-01 | XR_ITS ---
EXAMINATION: XR CHEST CLINICAL INFORMATION: Cough, chest tightness COMPARISON: Chest x-ray November 09, 2020 TECHNIQUE: 2 views of the chest were obtained. FINDINGS: Small to moderate volume left pleural effusion similar to prior chest x-ray November 10, 2020. This blunts the left costophrenic angle. Right costophrenic angle is sharp. No pulmonary vascular congestion. No focal consolidation. Cardiac and mediastinal contours are normal. The heart size is normal. XR/XR chest 2V IMPRESSION: Persistent left pleural effusion. No significant change since prior study November 09, 2020. No acute airspace disease.
[2020-12-01 16:04] VITALS: BP 150/69; PULSE 90; RESP 18; TEMP 36.9; O2SAT 95; BMI 28.3
[2020-12-01 17:53] LABS: MANUAL DIFF FLAG NO
[2020-12-01 17:55] LABS: Hematocrit 39.3 % (37-47); Hemoglobin 12.5 g/dl (12.0-16.0); Imm Gran Abs Auto 0.02 X10*3/uL (0.00-0.03); Imm Gran Pct Auto 0.3 % (0.0-0.4); Lymphocytes Absolute Auto 0.8 X10*3/uL (1.2-4.9); Lymphocytes Percent Auto 14.3 % (20-40); Mean Corpuscular HGB Conc 31.8 g/dl (31.0-35.0); Mean Corpuscular Hemoglobin 29.1 pg (27.0-33.0); Mean Corpuscular Volume 91.4 fL (80-98); Mean Platelet Volume 10.5 fL (9.4-12.3); Monocytes Absolute Auto 0.2 X10*3/uL (0.1-1.2); Monocytes Percent Auto 4.1 % (2-11); Neutrophils Absolute Auto 4.7 X10*3/uL (2.0-8.3); Neutrophils Percent Auto 81.3 % (45-73); Platelet Count 264 X10*3/uL (160-400); Red Cell Distribution Width 18.6 % (11.0-16.0); White Blood Count 5.8 X10*3/uL (4.8-10.8)
[2020-12-01 18:31] LABS: Anion Gap 14 (12-20); Blood Urea Nitrogen 9 mg/dL (9-16); Calcium 9.4 mg/dL (8.4-10.2); Carbon Dioxide 24 mmol/L (22-29); Chloride 109 mmol/L (96-108); Creatinine Clr Calc Pharmacy 62.1; Estimated Glomerular Filt Rate > 60; Glucose Random 102 mg/dL (60-115); Potassium 4.4 mmol/L (3.3-5.1); Sodium 143 mmol/L (135-145)
[2020-12-01 18:33] LABS: Troponin-I High Sensitivity < 3.5 ng/L (<3.5-17.0)
--- NOTE | 2020-12-01 19:54 | ED_ITS ---
HPI - Asthma General Chief Complaint: Asthma Stated Complaint: asthma Time Seen by Provider: 12/01/20 19:31 Source: patient Mode of arrival: ambulatory Limitations: no limitations History of Present Illness HPI Narrative: Patient comes emergency room complaining of multiple asthma exacerbations throughout the last couple of weeks. Patient complaining of wheezing, states she gave herself a breathing treatment prior to arrival and now she feels better. Patient also complaining of cough with phlegm. Denies fever or chills, no body aches Related Data Home Medications Medication Instructions Recorded Confirmed amitriptyline 25 mg tablet 25 mg PO TID tab 01/30/20 08/16/20 baclofen 20 mg tablet 20 mg PO BID 01/30/20 08/16/20 cyclobenzaprine 10 mg tablet 10 mg PO TID 01/30/20 08/16/20 diclofenac sodium 75 mg 75 mg PO BID 01/30/20 08/16/20 tablet,delayed release diphenhydramine HCl 25 mg tablet 25 mg PO Q6H PRN 01/30/20 08/16/20 (Banophen) folic acid 1 mg tablet 1 mg PO DAILY 01/30/20 08/16/20 omega 0-des-lgb-fish oil 1,200 mg 1 cap PO BID cap 01/30/20 08/16/20 (144 mg-216 mg) capsule (Fish Oil) promethazine 25 mg tablet 25 mg PO QID PRN 01/30/20 08/16/20 tramadol 50 mg tablet 50 mg PO BID PRN 05/06/20 08/16/20 eyrnllwhyp-azlrvfkaaswgl-begybvsk 1 tab PO Q12H PRN 08/12/20 08/16/20 50 mg-325 mg-40 mg tablet calcium carbonate 600 mg (1,500 1 tab PO DAILY 08/12/20 08/16/20 mg)-vitamin D3 200 unit tablet omega-3 fatty acids-fish oil 360 1 cap PO BID 08/12/20 08/16/20 mg-1,200 mg capsule Previous Rx's Medication Instructions Recorded atorvastatin 80 mg tablet 80 mg PO DAILY #90 tab 02/16/20 polyethylene glycol 3350 17 17 g PO DAILY PRN 30 Days #510 g 07/11/20 gram/dose oral powder alendronate 70 mg tablet 70 mg PO QWEEK #12 tab 07/27/20 ergocalciferol (vitamin D2) 1,250 1,250 mcg PO QWEEK #4 cap 07/30/20 mcg (50,000 unit) capsule doxycycline hyclate 100 mg tablet 100 mg PO BID #14 tab 08/13/20 famotidine 20 mg tablet 20 mg PO BID PRN #60 tab 08/19/20 fluticasone fur. 100 mcg-umeclid 1 inh INHALATION DAILY 30 Days #1 08/19/20 62.5 mcg-vilant 25 mcg ea inhalat.powder (Trelegy Ellipta) azathioprine 50 mg tablet (Imuran) 50 mg PO TID 30 Days #90 tab 09/27/20 pilocarpine HCl 5 mg tablet 5 mg PO TID #90 tab 10/10/20 prednisone 10 mg tablet 10 mg PO DAILY 30 Days #30 tab 10/21/20 furosemide 40 mg tablet 40 mg PO DAILY #30 tab 11/22/20 prednisone 50 mg tablet 50 mg PO DAILY #5 tab 12/01/20 Allergies Allergy/AdvReac Type Severity Reaction Status Date / Time hydroxychloroquine Allergy Intermediate problem Verified 11/09/20 12:49 [From Plaquenil] with eyes methotrexate [METHOTREXATE] Allergy Unknown NAUSEA & Verified 11/09/20 12:49 VOMITING Sulfa (Sulfonamide Allergy Unknown swelling Verified 11/09/20 12:49 Antibiotics) [SULFA (SULFONAMIDE ANTIBIOTICS)] vancomycin [VANCOMYCIN] Allergy Unknown Low BP Verified 11/09/20 12:49 Review of Systems Review of Systems: Constitutional : No Weight loss, No Fever, No Chills, No Night Sweats, No Fatigue, No Malaise ENT/Mouth : No Hearing loss, No Ear Pain, No Nasal Congestion, No Sinus Pain, No Hoarseness, No sore throat, No Rhinorrhea, No Swallowing Difficulty Eyes: No Eye Pain, No Swelling, No Redness, No Foreign Body, No Discharge, No Vision Changes Cardiovascular : No Chest Pain, planing dyspnea, asthma exacerbations Respiratory : Complaining of Cough, No Sputum, occasional intermittent Wheezing, No Smoke Exposure, No Dyspnea Gastrointestinal : No Nausea, No Vomiting, No Diarrhea, No Constipation, No abdominal Pain, No Hematochezia, No Melena Genitourinary : no irregular bleeding, No Dysuria, No Urinary Frequency, No Hematuria, No Urinary Incontinence, No Urgency, No Flank Pain, No Urinary Flow Changes, No Hesitancy Musculoskeletal : No joint pain, No Myalgias, No Joint Swelling Skin : No Skin Lesions, No rash Neuro : No Weakness, No Numbness, No Paresthesias, No Loss of Consciousness, No Dizziness, No Headache Psych : No Anxiety/Panic, No Depression, No SI/HI/AH/VH, No Social Issues, Heme/Lymph: No Bruising, No Bleeding,No Lymphadenopathy Endocrine : No Polyuria, No Polydipsia, No Temperature Intolerance [facility] Past Medical History Medical History Elevated LFTs Obesity (BMI 30-39.9) Pericardial effusion Pure hypercholesterolemia Surgical History History of bronchoscopy History of skin graft History of surgery History of thoracentesis Hx of section Hx of tubal ligation Status post debridement Family History Family History Father Medical history unknown Mother Diabetes Hypertension Social History Social History (Updated 10/19/20 @ 10:16 by Eriberto Fermin LPN) Alcohol intake: never Patient Tobacco Use Status: Never used Tobacco e-Cigarette/Vaping Use: Never Used Use of substances other than those prescribed or required for medical reasons: No Advance Directives: Yes Advance Directives Information Provided: Yes Advance Directives on File: No Sexual orientation: Straight/Heterosexual Gender identity: female Physical Exam Vital Signs: Vital Signs: Last Vital Signs Temp 98.5 F 12/01/20 16:04 Pulse 82 12/01/20 20:19 Resp 16 12/01/20 20:19 BP 138/73 12/01/20 20:19 Pulse Ox 95 12/01/20 20:19 Body Mass Index 28.3 Const: Other: Appearance: Alert. Oriented X3. No acute distress. moderate anxiety Eyes: Pupils equal, round and reactive to light. ENT: Pharynx normal. Neck: Normal inspection. Neck supple. No lymph nodes noted. No crepitus CVS: Normal heart rate and rhythm. Pulses normal. Normal S1 and S2 Respiratory: No respiratory distress. Breath sounds normal. No Wheezing. No rales Abdomen: Soft and nontender. No rigidity. No distention. good BS x4 Skin: Skin warm and dry. Normal skin color. Normal skin turgor. Extremities: No lower extremity edema. No Lacerations. No Rash Neuro: Oriented X 3. No motor deficit. No sensory deficit. Moving all extermities. No slurred speech. Course Course Course Narrative: I discussed with the patient she has a persistent small pleural effusion. No wheezing on physical exam. Oxygen saturation 96% on room air. However, the patient states she has been having multiple asthma exacerbations throughout the last few days. Prescription for prednisone. Wells criteria for PE score 0 MDM - Asthma Lab Data Result diagrams: 12/01/20 17:10 12/01/20 17:10 Labs: Lab Results 12/01/20 12/01/20 12/01/20 Range/Units 17:10 17:10 17:10 WBC 5.8 (4.8-10.8) X10*3/uL RBC 4.30 (4.20-5.50) X10*6/uL Hgb 12.5 (12.0-16.0) g/dl Hct 39.3 (37-47) % MCV 91.4 (80-98) fL MCH 29.1 (27.0-33.0) pg MCHC 31.8 (31.0-35.0) g/dl RDW 18.6 H (11.0-16.0) % Plt Count 264 (160-400) X10*3/uL MPV 10.5 (9.4-12.3) fL Immature Gran % (Auto) 0.3 (0.0-0.4) % Neut % (Auto) 81.3 H (45-73) % Lymph % (Auto) 14.3 L (20-40) % [place] % (Auto) 4.1 (2-11) % Eos % (Auto) 0.0 (0-4) % Baso % (Auto) 0.0 (0-2) % Lymph # (Auto) 0.8 L (1.2-4.9) X10*3/uL [place] # (Auto) 0.2 (0.1-1.2) X10*3/uL Eos # (Auto) 0.0 (0.0-0.4) X10*3/uL Baso # (Auto) 0.0 (0.0-0.2) X10*3/uL Abs Immat Gran (auto) 0.02 (0.00-0.03) X10*3/uL Absolute Neuts (auto) 4.7 (2.0-8.3) X10*3/uL Absolute Nucleated RBC 0.000 (0.0-0.012) X10*3/uL Nucleated RBC % (auto) 0.0 (0.0-0.2) /100WBC Sodium 143 (135-145) mmol/L Potassium 4.4 (3.3-5.1) mmol/L Chloride 109 H (96-108) mmol/L Carbon Dioxide 24 (22-29) mmol/L Anion Gap 14 (12-20) BUN 9 (9-16) mg/dL Creatinine 0.86 (0.5-1.4) mg/dL Estim Creat Clear Calc 62.1 Estimated GFR > 60 Random Glucose 102 (60-115) mg/dL Calcium 9.4 (8.4-10.2) mg/dL Troponin I High Sens < 3.5 (<3.5-17.0) ng/L Discharge Plan Discharge Clinical Impression: Asthma exacerbation Patient Disposition: Home, Self-Care Instructions: Bronchospasm (ED) Additional Instructions: Please follow-up with your primary care physician tomorrow. If you have any worsening or new symptoms, please return to the emergency room or call 911 Prescriptions: New prednisone 50 mg tablet 50 mg PO DAILY Qty: 5 RF: 0 No Action atorvastatin 80 mg tablet 80 mg PO DAILY Qty: 90 RF: 6 polyethylene glycol 3350 17 gram/dose powder 17 g PO DAILY PRN (Reason: constipation) 30 Days Qty: 510 RF: 12 alendronate 70 mg tablet 70 mg PO QWEEK Qty: 12 RF: 1 ergocalciferol (vitamin D2) 1,250 mcg (50,000 unit) capsule 1,250 mcg PO QWEEK Qty: 4 RF: 3 famotidine 20 mg tablet 20 mg PO BID PRN (Reason: heartburn) Qty: 60 RF: 5 azathioprine [Imuran] 50 mg tablet 50 mg PO TID 30 Days Qty: 90 RF: 5 pilocarpine HCl 5 mg tablet 5 mg PO TID Qty: 90 RF: 5 prednisone 10 mg tablet 10 mg PO DAILY 30 Days Qty: 30 RF: 5 furosemide 40 mg tablet 40 mg PO DAILY Qty: 30 RF: 6 omega-3 fatty acids-fish oil 360-1,200 mg capsule 1 cap PO BID RF: 0 qeuomkaigq-umwpldfcglaqi-kgcb 50-325-40 mg tablet 1 tab PO Q12H PRNRF: 0 calcium carbonate-vitamin D3 600 mg(1,500mg) -200 unit tablet 1 tab PO DAILY RF: 0 doxycycline hyclate 100 mg tablet 100 mg PO BID Qty: 14 RF: 0 tramadol 50 mg tablet 50 mg PO BID PRNRF: 0 baclofen 20 mg tablet 20 mg PO BID RF: 0 folic acid 1 mg tablet 1 mg PO DAILY RF: 0 diphenhydramine HCl [Banophen] 25 mg tablet 25 mg PO Q6H PRNRF: 0 diclofenac sodium 75 mg tablet,delayed release (DR/EC) 75 mg PO BID RF: 0 cyclobenzaprine 10 mg tablet 10 mg PO TID RF: 0 amitriptyline 25 mg tablet 25 mg PO TID RF: 0 omega 0-oab-ppu-fish oil [Fish Oil] 1,200 (144-216) mg capsule 1 cap PO BID RF: 0 promethazine 25 mg tablet 25 mg PO QID PRNRF: 0 Trelegy Ellipta 100-62.5-25 mcg blister with device 1 inh inhalation DAILY 30 Days Qty: 1 RF: 6
[2020-12-01 20:19] VITALS: BP 138/73; PULSE 82; RESP 16; O2SAT 95
== END 2020-12-01 21:54 | disposition home or self-care (01) ==
PROVIDERS: Emergency Provider Emergency Medicine; PCP Internal Medicine
DX: J45.901 Unspecified asthma with (acute) exacerbation (principal); Z79.899 Other long term (current) drug therapy
CPT/HCPCS: 36415; 71046; 80048; 84484; 85025; 93005; 99283; 99284

== ENCOUNTER 2020-12-07 11:30 | Outpatient (REF) | payer OTHER, SELFPAY ==
--- NOTE | ~2020-12-07 | XR_ITS ---
EXAMINATION: XR CHEST 2 VIEWS CLINICAL INFORMATION: Asthma. COMPARISON: Chest radiographs dated 12/01/2020; CTA chest dated 07/19/2020. TECHNIQUE: Frontal and lateral views of the chest were obtained. FINDINGS: The heart, great vessels, pulmonary vasculature and mediastinum are stable. There is a small left pleural effusion. No significant right pleural effusion is seen. The lungs show no focal infiltrate, effusion or pneumothorax. There are mild bibasilar atelectatic changes. There is mild bilateral bronchiolar wall thickening. There is no acute osseous abnormality. XR/XR chest 2V IMPRESSION: 1. A stable small left pleural effusion is seen. 2. There are mild bibasilar atelectatic changes. 3. There is mild bilateral bronchiolar wall thickening, consistent with the provided history of asthma.
== END 2020-12-07 11:31 | disposition home or self-care (01) ==
LOC: HO.HMGCX 11:30
PROVIDERS: PCP Internal Medicine; Visit Provider Internal Medicine
DX: J45.909 Unspecified asthma, uncomplicated (principal)
CPT/HCPCS: 71046

== ENCOUNTER → 2021-01-03 10:10 | Outpatient (BNVA) | payer OTHER, SELFPAY | PROVIDERS: PCP Internal Medicine; Visit Provider Anesthesiology | DX: M47.816 Spondylosis without myelopathy or radiculopathy, lumbar region (principal); M54.5 Low back pain | CPT/HCPCS: 99212 ==

== ENCOUNTER 2021-01-11 02:49 | Emergency (ER) | payer OTHER, SELFPAY ==
--- NOTE | ~2021-01-11 | XR_ITS ---
EXAMINATION: XR CHEST CLINICAL INFORMATION: Shortness of breath COMPARISON: 12/07/2020 TECHNIQUE: Frontal view of the chest was obtained. FINDINGS: Lung volumes are symmetric. Small left pleural effusion suspected with mild adjacent basilar opacity. There may be a trace right pleural effusion and adjacent subsegmental right basilar atelectasis. Upper lungs are well-aerated. No evidence of pneumothorax or overt pulmonary edema. Cardiac silhouette is prominent. No acute osseous findings are seen. XR/XR chest 1V IMPRESSION: Suspect small left pleural effusion with mild adjacent basilar opacity. Possible trace right pleural effusion with adjacent subsegmental atelectasis.
[2021-01-11 03:02] VITALS: BP 144/74; PULSE 85; RESP 18; TEMP 37.3; O2SAT 93; BMI 41.5
--- NOTE | 2021-01-11 03:45 | ED.GENADULT ---
HPI - General Adult General Chief complaint: General Medical Stated complaint: SoB, Neck Pain Time Seen by Provider: 01/11/21 03:45 Source: patient Mode of arrival: ambulatory Limitations: no limitations History of Present Illness HPI narrative: patient History of COPD on multiple inhalers lupus complaining of body aches on prednisone 10 mg already been vaccinated against COVID-19 saturating 94% at no cough no fever no chills Related Data Home Medications Medication Instructions Recorded Confirmed amitriptyline 25 mg tablet 25 mg PO TID tab 01/30/20 01/06/21 cyclobenzaprine 10 mg tablet 10 mg PO TID 01/30/20 01/06/21 diclofenac sodium 75 mg 75 mg PO BID 01/30/20 01/06/21 tablet,delayed release diphenhydramine HCl 25 mg tablet 25 mg PO Q6H PRN 01/30/20 01/06/21 (Banophen) folic acid 1 mg tablet 1 mg PO DAILY 01/30/20 01/06/21 omega 0-ovw-usc-fish oil 1,200 mg 1 cap PO BID cap 01/30/20 01/06/21 (144 mg-216 mg) capsule (Fish Oil) promethazine 25 mg tablet 25 mg PO QID PRN 01/30/20 01/06/21 tramadol 50 mg tablet 50 mg PO BID PRN 05/06/20 01/06/21 gvdcdgkeei-chnuswfkfeufk-ilalkmrl 1 tab PO Q12H PRN 08/12/20 01/06/21 50 mg-325 mg-40 mg tablet calcium carbonate 600 mg (1,500 1 tab PO DAILY 08/12/20 01/06/21 mg)-vitamin D3 200 unit tablet omega-3 fatty acids-fish oil 360 1 cap PO BID 08/12/20 01/06/21 mg-1,200 mg capsule Previous Rx's Medication Instructions Recorded atorvastatin 80 mg tablet 80 mg PO DAILY #90 tab 02/16/20 polyethylene glycol 3350 17 17 g PO DAILY PRN 30 Days #510 g 07/11/20 gram/dose oral powder ergocalciferol (vitamin D2) 1,250 1,250 mcg PO QWEEK #4 cap 07/30/20 mcg (50,000 unit) capsule doxycycline hyclate 100 mg tablet 100 mg PO BID #14 tab 08/13/20 famotidine 20 mg tablet 20 mg PO BID PRN #60 tab 08/19/20 fluticasone fur. 100 mcg-umeclid 1 inh INHALATION DAILY 30 Days #1 08/19/20 62.5 mcg-vilant 25 mcg ea inhalat.powder (Trelegy Ellipta) azathioprine 50 mg tablet (Imuran) 50 mg PO TID 30 Days #90 tab 09/27/20 pilocarpine HCl 5 mg tablet 5 mg PO TID #90 tab 10/10/20 prednisone 10 mg tablet 10 mg PO DAILY 30 Days #30 tab 10/21/20 furosemide 40 mg tablet 40 mg PO DAILY #30 tab 11/22/20 prednisone 50 mg tablet 50 mg PO DAILY #5 tab 12/01/20 albuterol sulfate 90 mcg/actuation 1 puff INHALATION Q4H PRN #8.5 g 12/03/20 aerosol inhaler albuterol sulfate 2.5 mg INHALATION QID #75 ml 12/07/20 alendronate 70 mg tablet 70 mg PO QWEEK #12 tab 01/04/21 baclofen 20 mg tablet 20 mg PO TID PRN 30 Days #60 tab 01/06/21 montelukast 10 mg tablet 10 mg PO BEDTIME 30 Days #30 tab 01/06/21 tramadol 50 mg tablet 50 mg PO Q8H PRN #30 tab 01/11/21 Allergies Allergy/AdvReac Type Severity Reaction Status Date / Time hydroxychloroquine Allergy Intermediate problem Verified 01/06/21 10:22 [From Plaquenil] with eyes methotrexate [METHOTREXATE] Allergy Unknown NAUSEA & Verified 01/06/21 10:22 VOMITING Sulfa (Sulfonamide Allergy Unknown swelling Verified 01/06/21 10:22 Antibiotics) [SULFA (SULFONAMIDE ANTIBIOTICS)] vancomycin [VANCOMYCIN] Allergy Unknown Low BP Verified 01/06/21 10:22 Review of Systems Review of Systems: Yes all other systems are reviewed and are negative PMFSH Past Medical History Medical History Benign essential hypertension Chronic obstructive pulmonary disease (COPD) Constipation Elevated LFTs GERD without esophagitis Neck pain Obesity (BMI 30-39.9) Osteopenia Pericardial effusion Pure hypercholesterolemia Vitamin D deficiency Surgical History History of bronchoscopy History of skin graft History of surgery History of thoracentesis Hx of section Hx of tubal ligation Status post debridement Family History Family History Father Medical history unknown Mother Diabetes Hypertension Social History Social History Housing: Apartment Alcohol intake: never Patient Tobacco Use Status: Never used Tobacco e-Cigarette/Vaping Use: Never Used Advance Directives: No Advance Directives Information Provided: Yes service: No Current occupational status: disabled Sexual orientation: Straight/Heterosexual Gender identity: Female Physical Exam Vital Signs: Vital Signs: Last Vital Signs Temp 99.1 F 01/11/21 03:02 Pulse 85 01/11/21 03:02 Resp 20 01/11/21 05:20 BP 144/74 H 01/11/21 03:02 Pulse Ox 93 01/11/21 03:02 Body Mass Index 41.5 Appearance: Alert. Oriented X3. No acute distress. Eyes: PERRLA, No Nystagmus ENT: Pharynx normal. Oral Mucosa moist Neck: Normal inspection. Neck supple. CVS: Normal heart rate and rhythm. Pulses normal. Respiratory: No respiratory distress. Equal air entry bilateral, bilateral wheezing prolonged expiration Abdomen: Soft and nontender. Bowel sounds are present, no mass palpable, no CVA tenderness Skin: Skin warm and dry. Normal skin color. Normal skin turgor. Extremities: No lower extremity edema. No calf tenderness Neuro: Oriented X 3. No motor deficit. Medical Decision Making MDM Narrative Medical decision making narrative: Patient with [place] COPD with diffuse body aches used to be on tramadol before chest x-ray negative for any acute infiltrate or if wanted tramadol and DuoNeb treatment feeling much better will discharge her home on tramadol Discharge Plan Discharge Clinical Impression: Myalgia Chronic obstructive pulmonary disease (COPD) Qualifiers: COPD type: chronic bronchitis Chronic bronchitis type: simple Qualified Code(s): J41.0 - Simple chronic bronchitis Patient Disposition: Home, Self-Care Instructions: COPD (Chronic Obstructive Pulmonary Disease) (ED), Musculoskeletal Pain (ED) Additional Instructions: Continue your inhalers Pain medicine as advised Follow with PCP Contin?e con goldy inhaladores Analg?sicos seg?n lo recomendado Siga con smith PCP Prescriptions: New tramadol 50 mg tablet 50 mg PO Q8H PRN (Reason: pain) Qty: 30 RF: 0 No Action atorvastatin 80 mg tablet 80 mg PO DAILY Qty: 90 RF: 6 polyethylene glycol 3350 17 gram/dose powder 17 g PO DAILY PRN (Reason: constipation) 30 Days Qty: 510 RF: 12 ergocalciferol (vitamin D2) 1,250 mcg (50,000 unit) capsule 1,250 mcg PO QWEEK Qty: 4 RF: 3 famotidine 20 mg tablet 20 mg PO BID PRN (Reason: heartburn) Qty: 60 RF: 5 azathioprine [Imuran] 50 mg tablet 50 mg PO TID 30 Days Qty: 90 RF: 5 pilocarpine HCl 5 mg tablet 5 mg PO TID Qty: 90 RF: 5 prednisone 10 mg tablet 10 mg PO DAILY 30 Days Qty: 30 RF: 5 furosemide 40 mg tablet 40 mg PO DAILY Qty: 30 RF: 6 albuterol sulfate 90 mcg/actuation HFA aerosol inhaler 1 puff inhalation Q4H PRN (Reason: shortness of breath or wheezing) Qty: 8.5 RF: 3 alendronate 70 mg tablet 70 mg PO QWEEK Qty: 12 RF: 0 prednisone 50 mg tablet 50 mg PO DAILY Qty: 5 RF: 0 omega-3 fatty acids-fish oil 360-1,200 mg capsule 1 cap PO BID RF: 0 ptrnbnhvln-jteofgmonbznr-zuay 50-325-40 mg tablet 1 tab PO Q12H PRNRF: 0 calcium carbonate-vitamin D3 600 mg(1,500mg) -200 unit tablet 1 tab PO DAILY RF: 0 doxycycline hyclate 100 mg tablet 100 mg PO BID Qty: 14 RF: 0 montelukast 10 mg tablet 10 mg PO BEDTIME 30 Days Qty: 30 RF: 5 baclofen 20 mg tablet 20 mg PO TID PRN (Reason: muscle spasms) 30 Days Qty: 60 RF: 1 albuterol sulfate 2.5 mg /3 mL (0.083 %) solution for nebulization 2.5 mg inhalation QID Qty: 75 RF: 0 tramadol 50 mg tablet 50 mg PO BID PRNRF: 0 folic acid 1 mg tablet 1 mg PO DAILY RF: 0 diphenhydramine HCl [Banophen] 25 mg tablet 25 mg PO Q6H PRNRF: 0 diclofenac sodium 75 mg tablet,delayed release (DR/EC) 75 mg PO BID RF: 0 cyclobenzaprine 10 mg tablet 10 mg PO TID RF: 0 amitriptyline 25 mg tablet 25 mg PO TID RF: 0 omega 5-vuu-jxg-fish oil [Fish Oil] 1,200 (144-216) mg capsule 1 cap PO BID RF: 0 promethazine 25 mg tablet 25 mg PO QID PRNRF: 0 Trelegy Ellipta 100-62.5-25 mcg blister with device 1 inh inhalation DAILY 30 Days Qty: 1 RF: 6 Print Language: English
[2021-01-11] MEDS: traMADoL HCL 50 MG TABLET PO (04:30)
[2021-01-11] MEDS: Albuterol/Iprat 2.5/0.5MG 3 ML AMPUL.NEB INHALE (04:31)
[2021-01-11 05:20] VITALS: RESP 20
--- NOTE | 2021-01-11 05:22 | PC.NURSE ---
pt a&o, denies any increase of sob or chest pain. pt report some pain relief after being medicated. Pt able to speak in full sentence and able to communicated needs. Call mathews within pt reach. Respiratory treatment given.
== END 2021-01-11 05:44 | disposition home or self-care (01) ==
PROVIDERS: Emergency Provider Internal Medicine; PCP Internal Medicine
DX: J41.0 Simple chronic bronchitis (principal); M54.2 Cervicalgia; R06.02 Shortness of breath; M79.10 Myalgia, unspecified site; Z79.899 Other long term (current) drug therapy
CPT/HCPCS: 71045; 99284

== ENCOUNTER 2021-01-11 08:47 | Outpatient (REF) | payer OTHER, SELFPAY ==
--- NOTE | ~2021-01-11 | XR_ITS ---
EXAMINATION: XR CERVICAL SPINE CLINICAL INFORMATION: Neck pain. COMPARISON: Cervical spine radiographs dated 09/30/2015. TECHNIQUE: AP, lateral, open-mouth, bilateral oblique views of the cervical spine. FINDINGS: Mild reversal the normal cervical lordosis, which may be positional or related to muscular spasm. Minimal grade 1 anterolisthesis of C3 on C4, unchanged. No acute fracture or subluxation. No loss of vertebral body height. Multilevel loss of intervertebral disc height with anterior endplate osteophytes, most prominent at C4 through C7. Normal atlantoaxial alignment. Multilevel bilateral facet arthropathy and neuroforaminal stenosis. Unremarkable prevertebral soft tissues. XR/XR cervical spine 5V IMPRESSION: Mild reversal of the normal cervical lordosis, which may be positional or related to muscular spasm. Minimal grade 1 anterolisthesis of C3 on C4, unchanged. Multilevel degenerative disc disease with bilateral facet arthropathy and neuroforaminal stenosis, slightly progressed when compared to the prior examination.
== END 2021-01-11 08:48 | disposition home or self-care (01) ==
LOC: HO.XRAY 08:47
PROVIDERS: PCP Internal Medicine; Visit Provider Internal Medicine
DX: M54.2 Cervicalgia (principal)
CPT/HCPCS: 72050

== ENCOUNTER 2021-02-03 10:31 | Outpatient (REF) | payer OTHER, SELFPAY ==
--- NOTE | ~2021-02-03 | XR_ITS ---
EXAMINATION: XR CHEST CLINICAL INFORMATION: Shortness of breath. COMPARISON: Chest radiograph dated 01/11/2021 TECHNIQUE: 2 views of the chest were obtained. FINDINGS: Small left-sided pleural effusion, decreased when compared to the prior examination. Bibasilar airspace opacities are redemonstrated. No pneumothorax. Stable cardiomediastinal silhouette. No acute osseous abnormality. XR/XR chest 2V IMPRESSION: Small left-sided pleural effusion, slightly decreased. Bibasilar airspace opacities are unchanged.
== END 2021-02-03 10:32 | disposition home or self-care (01) ==
LOC: HO.XRAY 10:31
PROVIDERS: PCP Internal Medicine; Visit Provider Internal Medicine Pulmonary Disease
DX: J41.0 Simple chronic bronchitis (principal); R06.02 Shortness of breath; Z79.52 Long term (current) use of systemic steroids; Z79.899 Other long term (current) drug therapy
CPT/HCPCS: 71046; 99212

== ENCOUNTER 2021-02-08 06:53 | Outpatient (REF) | payer OTHER, SELFPAY ==
--- NOTE | ~2021-02-08 | FL_ITS ---
EXAMINATION: XR FLUOROSCOPY WITH IMAGES CLINICAL INFORMATION: M47.816 - Spondylosis without myelopathy or radiculopathy COMPARISON: Radiographs lumbar spine 05/10/2020 TECHNIQUE: Fluoroscopy performed by Dr. Denis Luciano. Fluoroscopy time: 0.9 minutes DAP: 8.71 Gycm2 Images: 6 FINDINGS: There are spinal needles overlying the bilateral outer L3, L4, and L5 neural foramen. There is contrast seen in the respective nerve sheaths. Some early transforaminal epidural extension is suggested. No visible vascular communication. There are degenerative changes again noted lumbar spine with disc narrowing and vertebral spurring. Recent plain films show transitional vertebrae at L5 with right hemisacralization. FL/FL guidance in treatment room IMPRESSION: Fluoroscopy for pain management procedures.
== END 2021-02-08 06:54 | disposition home or self-care (01) ==
LOC: HO.RADIR 06:53
PROVIDERS: Visit Provider Anesthesiology
DX: M47.816 Spondylosis without myelopathy or radiculopathy, lumbar region (principal); M54.50 Low back pain, unspecified
CPT/HCPCS: 64493; 64494; Q9967

== ENCOUNTER → 2021-02-17 09:39 | Outpatient (BNVA) | payer OTHER, SELFPAY | PROVIDERS: PCP Internal Medicine; Visit Provider Anesthesiology | DX: M47.816 Spondylosis without myelopathy or radiculopathy, lumbar region (principal); M54.50 Low back pain, unspecified; M46.1 Sacroiliitis, not elsewhere classified | CPT/HCPCS: 99212 ==

== ENCOUNTER → 2021-02-23 13:51 | Outpatient (BNVA) | payer OTHER, SELFPAY | PROVIDERS: PCP Internal Medicine; Visit Provider Internal Medicine Pulmonary Disease | DX: J44.9 Chronic obstructive pulmonary disease, unspecified (principal); R06.00 Dyspnea, unspecified | CPT/HCPCS: 99212 ==

== ENCOUNTER 2021-03-29 06:01 | Outpatient (REF) | payer OTHER, SELFPAY ==
--- NOTE | ~2021-03-29 | FL_ITS ---
EXAMINATION: XR FLUOROSCOPY WITH IMAGES CLINICAL INFORMATION: M46.1 - Sacroiliitis, not elsewhere classified COMPARISON: Fluoroscopic spot views 02/08/2021. TECHNIQUE: Fluoroscopy performed by Dr. Denis Luciano. Fluoroscopy time: 0.2 minutes DAP: 2.84 Gycm2 Images: 3 FINDINGS: Spinal needle overlies lower right and lower left SI joints. There is contrast in the periarticular soft tissues with probable early intra-articular contrast. No vasculature communication appreciated. FL/FL guidance in treatment room IMPRESSION: Fluoroscopy for pain management procedure.
== END 2021-03-29 06:02 | disposition home or self-care (01) ==
LOC: HO.RADIR 06:01
PROVIDERS: Visit Provider Anesthesiology
DX: M47.816 Spondylosis without myelopathy or radiculopathy, lumbar region (principal); M46.1 Sacroiliitis, not elsewhere classified; M54.50 Low back pain, unspecified
CPT/HCPCS: 27096; J3300; Q9967

== ENCOUNTER → 2021-04-06 13:24 | Outpatient (BNVA) | payer OTHER, SELFPAY | PROVIDERS: PCP Internal Medicine; Visit Provider Internal Medicine Pulmonary Disease | DX: J44.9 Chronic obstructive pulmonary disease, unspecified (principal); R06.00 Dyspnea, unspecified | CPT/HCPCS: 99212 ==

== ENCOUNTER → 2021-04-27 08:46 | Outpatient (BNVA) | payer OTHER, SELFPAY | PROVIDERS: PCP Internal Medicine; Visit Provider Anesthesiology | DX: M47.816 Spondylosis without myelopathy or radiculopathy, lumbar region (principal); M54.50 Low back pain, unspecified; M46.1 Sacroiliitis, not elsewhere classified | CPT/HCPCS: 99212 ==

== ENCOUNTER 2021-05-12 11:34 | Outpatient (REF) | payer OTHER, SELFPAY ==
--- NOTE | ~2021-05-12 | XR_ITS ---
EXAMINATION: XR ABDOMEN COMPLETE CLINICAL INDICATION: R10.84 - Generalized abdominal pain COMPARISON: Chest radiograph 02/03/2021, lumbar radiographs 05/10/2020, CT abdomen and pelvis with contrast 05/19/2017 TECHNIQUE: 5 views of the abdomen. FINDINGS: There is scattered gas in the large and small bowel of normal caliber. There is no gaseous dilatation of bowel, differential air-fluid levels, or free air. There is probable calculus overlying right renal fossa. Numerous calcified buttocks injection granulomata are seen overlying the lower quadrants and there is benign calcification of the vas deferens. Lung bases show tapering at the cardiophrenic angles likely related to areolar tissue. There is some smooth chronic pleural thickening left lateral base. Bony structures again show multilevel degenerative changes lumbar spine. There are multiple bilateral healed rib fractures. XR/XR abdomen 3V IMPRESSION: 1. No obstruction or abnormal collections of gas. 2. Probable right renal calculus. 3. Degenerative changes lumbar spine. Multiple bilateral lower healed rib fractures.
== END 2021-05-12 11:35 | disposition home or self-care (01) ==
LOC: HO.XRAY 11:34
PROVIDERS: PCP Internal Medicine; Visit Provider Internal Medicine
DX: R10.84 Generalized abdominal pain (principal)
CPT/HCPCS: 74021

== ENCOUNTER 2021-05-16 07:18 | Outpatient (REF) | payer OTHER, SELFPAY ==
[2021-05-16 07:43] LABS: MANUAL DIFF FLAG NO
[2021-05-16 08:31] LABS: Basophils Percent Auto 0.2 % (0-2); Eosinophils Percent Auto 0.2 % (0-4); Hematocrit 39.3 % (37.0-47.0); Imm Gran Abs Auto 0.02 X10*3/uL (0.00-0.03); Imm Gran Pct Auto 0.4 % (0.0-0.4); Lymphocytes Absolute Auto 1.8 X10*3/uL (1.2-4.9); Lymphocytes Percent Auto 36.3 % (20-40); Mean Corpuscular HGB Conc 30.5 g/dl (31.0-35.0); Mean Corpuscular Hemoglobin 28.8 pg (27.0-33.0); Mean Corpuscular Volume 94.2 fL (80.0-98.0); Mean Platelet Volume 10.1 fL (9.4-12.3); Monocytes Absolute Auto 0.5 X10*3/uL (0.1-1.2); Monocytes Percent Auto 9.4 % (2-11); Neutrophils Absolute Auto 2.6 x10*3/uL (2.0-8.3); Neutrophils Percent Auto 53.5 % (45-73); Platelet Count 279 X10*3/uL (160-400); Red Blood Count 4.17 X10*6/uL (4.20-5.50); Red Cell Distribution Width 18.2 % (11.0-16.0); White Blood Count 4.9 X10*3/uL (4.8-10.8)
[2021-05-16 08:31] LABS: Appearance Urine CLEAR; Color Urine YELLOW; Glucose Urine UA NEG (NEG); Leukocyte Esterase Urine NEG (NEG); Nitrite Urine NEG (NEG); Urine Blood NEG (NEG); Urine Ketones NEG (NEG); Urine Protein NEG (NEG-TRACE)
[2021-05-16 08:56] LABS: Alanine Aminotransferase 16 U/L (0-31); Albumin Level 3.5 g/dL (3.5-5.0); Alkaline Phosphatase 54 U/L (39-117); Anion Gap 12 (12-20); Aspartate Amino Transferase 15 U/L (5-31); Bilirubin Total 0.3 mg/dL (0.0-1.0); Blood Urea Nitrogen 13 mg/dL (9-16); Calcium 9.3 mg/dL (8.4-10.2); Carbon Dioxide 26 mmol/L (22-29); Chloride 111 mmol/L (96-108); Cholesterol 340 mg/dL; Estimated Glomerular Filt Rate > 60; Glucose Fasting 79 mg/dL (60-99); HDL Cholesterol 40 mg/dL; LDL Cholesterol Calculated 257 mg/dl; Potassium 4.3 mmol/L (3.3-5.1); Sodium 145 mmol/L (135-145); Total Protein 6.6 g/dL (6.5-8.0); Triglycerides 216 mg/dL
[2021-05-16 09:17] LABS: TSH reflex Free T4 2.04 uIU/mL (0.32-4.0); Vitamin D 25-OH Total 25.6 ng/mL (>30)
== END 2021-05-16 07:19 | disposition home or self-care (01) ==
LOC: HO.LAB 07:18
PROVIDERS: PCP Internal Medicine; Visit Provider Internal Medicine
DX: E78.00 Pure hypercholesterolemia, unspecified (principal); I10 Essential (primary) hypertension; E55.9 Vitamin D deficiency, unspecified
CPT/HCPCS: 36415; 80053; 80061; 81003; 82306; 84443; 85025

== ENCOUNTER → 2021-06-08 12:45 | Outpatient (BNVA) | payer OTHER, SELFPAY | PROVIDERS: PCP Internal Medicine; Visit Provider Internal Medicine Pulmonary Disease | DX: J44.9 Chronic obstructive pulmonary disease, unspecified (principal); R10.9 Unspecified abdominal pain | CPT/HCPCS: 99212 ==

== ENCOUNTER 2021-06-09 08:31 | Outpatient (REF) | payer OTHER, SELFPAY ==
--- NOTE | ~2021-06-09 | US_ITS ---
EXAMINATION: US ABDOMEN COMPLETE CLINICAL INFORMATION: Abdominal pain. COMPARISON: None TECHNIQUE: Real-time imaging of the abdominal viscera. FINDINGS: PANCREAS: The visualized portion of the pancreas head and body are normal, portion of the pancreatic body and tail, not visualized are obscured by bowel gas. ABDOMINAL AORTA: The proximal, mid, and distal segments are normal in caliber. INFERIOR VENA CAVA: Visualized portions are normal. LIVER: Normal. The liver is normal in size. The liver contour is normal. Parenchymal echogenicity is normal. No focal hepatic lesion. There is no intrahepatic biliary duct dilatation seen. GALLBLADDER: Normal. The gallbladder is physiologically distended without evidence of stones, sludge, polyps, wall thickening or pericholecystic fluid. COMMON BILE DUCT: Normal in caliber measuring 0.3 cm in diameter. RIGHT KIDNEY: Normal. No hydronephrosis. There are echogenic structures in the right kidney likely nonobstructing stones 5 and 4 mm. No focal parenchymal lesions. The kidney measures 12.4 cm in maximum dimension. LEFT KIDNEY: Normal. No hydronephrosis. No renal calculi or focal parenchymal lesions. The kidney measures 12.4 cm in maximum dimension. SPLEEN: Normal. The spleen measures 8 cm in maximum dimension. FREE FLUID: None. US/US abdomen complete IMPRESSION: *No ultrasound explanation for patient's pain symptoms, no evidence of gallbladder disease or gallstones. No intra or extrahepatic biliary dilatation. *There are small echogenic foci in the right kidney likely nonobstructing stones.
--- NOTE | ~2021-06-09 | US_ITS ---
EXAMINATION: US DOPPLER ABDOMEN AND PORTAL VENOUS SYSTEM, LIMITED CLINICAL INFORMATION: This a 60-year-old female with abdominal pain. This is an addendum to the original ultrasound abdomen study read by Dr. Mccray on June 09, 2021. Interventional Radiologist: Simone Plunkett M.D., F.S.I.R., F.A.C.R. COMPARISON: None. TECHNIQUE: An ultrasound arterial Doppler evaluation of the abdominal vascular structures was performed. The abdominal ultrasound was dictated separately. FINDINGS: ARTERIAL DOPPLER EXAMINATION: PORTAL VEINS: The extrahepatic portal vein is hepatopedal. The main portal vein is hepatopedal. The right portal vein is hepatopedal. The left portal vein is hepatopedal. HEPATIC ARTERIES: The hepatic artery measures 78 cm/s and is antegrade. The right hepatic artery is antegrade. The left hepatic artery is antegrade. HEPATIC VEINS: The main hepatic vein appears normal and hepatofugal. The left hepatic vein is normal and hepatofugal. The right hepatic vein is normal and hepatofugal. The inferior vena cava waveform is normal. SPLENIC VEIN: Patent. ASCITES: None. COLLATERALS: None. US/US duplex arterial venous comp IMPRESSION: 1. Normal abdominal and hepatic Doppler ultrasound.
== END 2021-06-09 08:32 | disposition home or self-care (01) ==
LOC: HO.US 08:31
PROVIDERS: PCP Internal Medicine; Visit Provider Internal Medicine Pulmonary Disease
DX: K74.60 Unspecified cirrhosis of liver (principal); R10.9 Unspecified abdominal pain
CPT/HCPCS: 76700; 93975

== ENCOUNTER 2021-06-10 13:36 | Emergency (ER) | payer OTHER, SELFPAY ==
--- NOTE | ~2021-06-10 | CT_ITS ---
EXAMINATION: CT ABDOMEN AND PELVIS WITHOUT CONTRAST CLINICAL INFORMATION: Bloating and abdominal pain. COMPARISON: Abdominal ultrasound dated from 06/09/2021. CT abdomen/pelvis dated from 05/19/2017. TECHNIQUE: Multidetector volumetric imaging was performed from the superior aspect of the liver through the pubic symphysis. Sagittal and coronal reformatted images were obtained on the technologist's workstation. This CT examination was performed using dose optimization techniques as appropriate, variously including the following: *Automated exposure control *Adjustment of mA and/or kV according to patient size (this includes techniques or standardized protocols for targeted exams where dose is matched to indication/reason for exam; i.e. extremities or head) *Use of iterative reconstruction technique DLP: 538 mGy-cm FINDINGS: LUNG BASES: Small left pleural effusion. Nonspecific interstitial thickening and peripheral reticulation. Evaluation of small pulmonary nodules is limited due to respiratory motion. The heart is enlarged, similar to priors. LIVER, GALLBLADDER, AND BILIARY TREE: The liver is normal in size, shape, and attenuation. No focal hepatic lesion or biliary ductal dilatation is present. There is a small nonspecific calcification abutting the surface of the left hepatic lobe measuring 0.4 cm (3:14). The gallbladder is unremarkable with no evidence of radiopaque gallstones, gallbladder wall thickening, or obvious pericholecystic inflammatory changes. PANCREAS: Unremarkable. SPLEEN: Unremarkable. ADRENAL GLANDS: Unremarkable. KIDNEYS AND URETERS: Unchanged cortical scarring and thinning in the anterior surface of the right kidney. There is a 0.6 cm calculus in the lower pole of the right kidney (7:75) situated at 14.5 cm from the skin surface of the posterior axillary line. There is an additional 0.2 cm calculus in the lower pole of the right kidney on the same axial image which could be vascular in etiology. No hydronephrosis or hydroureter. No perinephric fat stranding. BLADDER: Partially underdistended which limits assessment of wall thickening. Nonspecific fatty deposition in the anterior wall (3:63). No perivesical fat stranding. GASTROINTESTINAL TRACT: The stomach and the small bowel are nondilated. The appendix is not identified, however there are no regional inflammatory changes to suspect acute appendicitis. The majority of the colon is under distended limiting assessment of wall thickening and mural abnormalities. No pericolic inflammatory changes or evidence of bowel obstruction. Nonspecific submucosa fatty disposition in the cecum. ABDOMINAL WALL: Anterior abdominal rectus muscle diastases. Redemonstration of small fat-containing periumbilical abdominal wall hernias. Multiple granulomas in the subcutaneous tissues of the gluteal regions are again noted. LYMPH NODES: No lymphadenopathy by size criteria. Small omental calcifications in the left upper abdomen (4:294 and 4:285) are stable. VASCULAR: Scattered atherosclerotic disease. No aneurysm. PELVIC VISCERA: Normal appearance of the uterus. Pelvic phleboliths and periuterine calcifications are stable. No adnexal lesions. OSSEOUS STRUCTURES: No acute or aggressive osseous abnormalities. Bilateral rib fractures are redemonstrated. Right hemisacralization of L5. Moderate to severe thoracolumbar spondylosis. CT/CT abdomen pelvis wo con IMPRESSION: Nonobstructive calculi in the lower pole of the right kidney. No active inflammatory bowel changes or evidence of bowel obstruction. Small left pleural effusion with nonspecific interstitial thickening and peripheral reticulation in the lung bases.
[2021-06-10 14:08] VITALS: BP 157/78; PULSE 81; RESP 22; TEMP 36.6; O2SAT 94; BMI 30.2
[2021-06-10 14:51] LABS: MANUAL DIFF FLAG NO
[2021-06-10 14:52] LABS: Hematocrit 36.9 % (37.0-47.0); Hemoglobin 11.7 g/dl (12.0-16.0); Imm Gran Abs Auto 0.01 X10*3/uL (0.00-0.03); Imm Gran Pct Auto 0.2 % (0.0-0.4); Lymphocytes Absolute Auto 0.8 X10*3/uL (1.2-4.9); Lymphocytes Percent Auto 15.9 % (20-40); Mean Corpuscular HGB Conc 31.7 g/dl (31.0-35.0); Mean Corpuscular Hemoglobin 28.9 pg (27.0-33.0); Mean Corpuscular Volume 91.1 fL (80.0-98.0); Mean Platelet Volume 10.1 fL (9.4-12.3); Monocytes Absolute Auto 0.2 X10*3/uL (0.1-1.2); Monocytes Percent Auto 4.8 % (2-11); Neutrophils Percent Auto 79.1 % (45-73); Platelet Count 270 X10*3/uL (160-400); Red Blood Count 4.05 X10*6/uL (4.20-5.50); Red Cell Distribution Width 17.9 % (11.0-16.0)
[2021-06-10 14:55] LABS: Appearance Urine CLEAR; Color Urine YELLOW; Glucose Urine UA NEG (NEG); Leukocyte Esterase Urine NEG (NEG); Nitrite Urine NEG (NEG); PH 6.5 (5.0-8.0); Urine Blood NEG (NEG); Urine Ketones NEG (NEG); Urine Protein NEG (NEG-TRACE)
[2021-06-10 15:23] LABS: Alanine Aminotransferase 19 U/L (0-31); Albumin Level 3.7 g/dL (3.5-5.0); Alkaline Phosphatase 62 U/L (39-117); Anion Gap 11 (12-20); Aspartate Amino Transferase 20 U/L (5-31); Bilirubin Direct < 0.2 mg/dL (0.0-0.5); Bilirubin Total < 0.2 mg/dL (0.0-1.0); Blood Urea Nitrogen 11 mg/dL (9-16); Calcium 9.1 mg/dL (8.4-10.2); Carbon Dioxide 25 mmol/L (22-29); Chloride 111 mmol/L (96-108); Creatinine Clr Calc Pharmacy 66.5; Estimated Glomerular Filt Rate > 60; Glucose Random 109 mg/dL (60-115); Lipase 36 U/L (8-78); Potassium 4.4 mmol/L (3.3-5.1); Sodium 143 mmol/L (135-145); Total Protein 6.9 g/dL (6.5-8.0)
--- NOTE | 2021-06-10 17:45 | ED.ABDPAIN ---
HPI - Abdominal Pain General Chief Complaint: Abdominal Pain Stated Complaint: ABD PAIN Time Seen by Provider: 06/10/21 17:44 Source: patient, old records reviewed and clinic office coordinator Mode of arrival: ambulatory Limitations: no limitations History of Present Illness MD elicited complaint: abdominal pain Onset (ago): week(s) (2) Pain Consistency: constant Location: epigastric Severity: moderate Quality: cramping Radiation: LUQ and RUQ Migration to: no migration Exacerbating factors: nothing Relieving factors: nothing Context: history of similar episodes Associated symptoms: nausea and diarrhea Treatments prior to arrival: other (US 06/09 no sig findings) Related Data Home Medications Medication Instructions Recorded Confirmed amitriptyline 25 mg tablet 25 mg PO TID tab 01/30/20 05/12/21 cyclobenzaprine 10 mg tablet 10 mg PO TID 01/30/20 05/12/21 diclofenac sodium 75 mg 75 mg PO BID 01/30/20 05/12/21 tablet,delayed release diphenhydramine HCl 25 mg tablet 25 mg PO Q6H PRN 01/30/20 05/12/21 (Banophen) omega 7-apg-xqj-fish oil 1,200 mg 1 cap PO BID cap 01/30/20 05/12/21 (144 mg-216 mg) capsule (Fish Oil) promethazine 25 mg tablet 25 mg PO QID PRN 01/30/20 05/12/21 zgzsbdvgyu-jqpuxihenqfyh-rbrqjfrq 1 tab PO Q12H PRN 08/12/20 05/12/21 50 mg-325 mg-40 mg tablet calcium carbonate 600 mg-vitamin 1 tab PO DAILY 08/12/20 05/12/21 D3 5 mcg (200 unit) tablet Previous Rx's Medication Instructions Recorded atorvastatin 80 mg tablet 80 mg PO DAILY #90 tab 02/16/20 polyethylene glycol 3350 17 17 g PO DAILY PRN 30 Days #510 g 07/11/20 gram/dose oral powder fluticasone fur. 100 mcg-umeclid 1 inh INHALATION DAILY 30 Days #1 08/19/20 62.5 mcg-vilant 25 mcg ea inhalat.powder (Trelegy Ellipta) alendronate 70 mg tablet 70 mg PO QWEEK #12 tab 01/04/21 tramadol 50 mg tablet 50 mg PO Q8H PRN #30 tab 01/11/21 furosemide 40 mg tablet 40 mg PO BID 30 Days #60 tab 02/03/21 famotidine 20 mg tablet 20 mg PO BID PRN #60 tab 02/06/21 ergocalciferol (vitamin D2) 1,250 1,250 mcg PO QWEEK #4 cap 03/07/21 mcg (50,000 unit) capsule azathioprine 50 mg tablet 50 mg PO TID #90 tab 03/16/21 albuterol sulfate 90 mcg/actuation 1 puff INHALATION Q4H PRN #8.5 g 03/29/21 aerosol inhaler albuterol sulfate 2.5 mg (3 mL) INHALATION QID #75 ml 03/30/21 pilocarpine HCl 5 mg tablet 5 mg PO TID #90 tab 04/02/21 celecoxib 200 mg capsule (Celebrex) 200 mg PO BID PRN 30 Days #60 cap 04/27/21 tizanidine 2 mg tablet 2 mg PO TID PRN 30 Days #90 tab 04/27/21 baclofen 20 mg tablet 20 mg PO TID PRN 30 Days #60 tab 04/29/21 folic acid 1 mg tablet 1 mg PO DAILY 90 Days #90 tab 05/12/21 montelukast 10 mg tablet 10 mg PO BEDTIME 90 Days #90 tab 05/12/21 ondansetron 4 mg disintegrating 4 mg PO Q8H PRN #20 tab 06/10/21 tablet tramadol 50 mg tablet 50 mg PO TID PRN #14 tab 06/10/21 Allergies Allergy/AdvReac Type Severity Reaction Status Date / Time hydroxychloroquine Allergy Intermediate problem Verified 06/08/21 13:08 [From Plaquenil] with eyes methotrexate [METHOTREXATE] Allergy Unknown NAUSEA & Verified 06/08/21 13:08 VOMITING Sulfa (Sulfonamide Allergy Unknown swelling Verified 06/08/21 13:08 Antibiotics) [SULFA (SULFONAMIDE ANTIBIOTICS)] vancomycin [VANCOMYCIN] Allergy Unknown Low BP Verified 06/08/21 13:08 Review of Systems Review of Systems Constitutional : No Weight loss, No Fever, No Chills ENT/Mouth : No sore throat, No Rhinorrhea Eyes: No Swelling, No Redness Cardiovascular : No Chest Pain, No SOB, NoEdema Respiratory : No Cough, No Sputum, No Wheezing Gastrointestinal : Positive Nausea, no Vomiting, positive Diarrhea, positive abdominal Pain, No Hematochezia, No Melena Genitourinary : No Dysuria, No Urinary Frequency, No Hematuria, No Urgency Musculoskeletal : No joint pain, No Myalgias, No Joint Swelling Skin : No Skin Lesions, No rash Neuro : No Weakness, No Numbness, No Dizziness, No Headache Psych : No Anxiety/Panic, No Depression Heme/Lymph: No Bruising, No Lymphadenopathy Endocrine : No Polyuria, No Polydipsia All other systems reviewed and are negative. [facility] Past Medical History Attestation statement: The following information was validated with the patient. Medical History Benign essential hypertension Chronic obstructive pulmonary disease (COPD) Constipation Elevated LFTs GERD without esophagitis Neck pain Obesity (BMI 30-39.9) Osteopenia Pericardial effusion Pure hypercholesterolemia Sacroiliitis Vitamin D deficiency Surgical History History of bronchoscopy History of skin graft History of surgery History of thoracentesis Hx of section Hx of tubal ligation Status post debridement Family History Family History Father Medical history unknown Mother Diabetes Hypertension Social History Social History Housing: Apartment Alcohol intake: never Patient Tobacco Use Status: Never used Tobacco e-Cigarette/Vaping Use: Never Used service: No Current occupational status: disabled Sexual orientation: Straight/Heterosexual Gender identity: Female Physical Exam ED Vital Signs: Vital Signs - 24 hr 06/10/21 14:08 06/10/21 17:52 Temperature 97.9 F 98.3 F Pulse Rate 81 68 Respiratory Rate 22 H 14 Blood Pressure 157/78 H 138/67 Pulse Oximetry 94 94 BMI result Body Mass Index 30.2 Appearance: Alert. Oriented X3. No acute distress. Eyes: Pupils equal, round and reactive to light. ENT: Pharynx normal. Neck: Normal inspection. Neck supple. CVS: Normal heart rate and rhythm. Pulses normal. Respiratory: No respiratory distress. Breath sounds normal. Abdomen: appears bloated, soft diffuse upper abdominal ttp - no rebound or guarding Skin: Skin warm and dry. Normal skin color. Normal skin turgor. Extremities: No lower extremity edema. No calf ttp Neuro: Oriented X 3. No motor deficit. No sensory deficit. Course Course Course Narrative: no acute findings normal labs, negative UA, nonspecific but nothing acute on CT scan can be DC home with 2 weeks of symptoms ? h pylori infection will instruct her to follow up with her PCP MDM - Abdominal Pain MDM Narrative Medical decision making narrative: 60 yo female with hx of COPD, chronic back pain, GERD, HLD, SLE, sjogren's, comes in with 2 weeks of abdominal pain she also notes that she has nausea and diarrhea - told to come in by her doctor as US showed R sided kidney stones in the kidney that are non obstructing otherwise US normal. I do not think this is the cause of her pain. ?constipation or gas. WIll obtain labs, UA, CT scan for constipation, obstruction, ileus, diverticulitis. Dispo per results and findings. Lab Data Result diagrams: 06/10/21 14:45 06/10/21 14:46 Labs: Lab Results 06/10/21 06/10/21 06/10/21 Range/Units 14:41 14:45 14:46 WBC 5.0 (4.8-10.8) X10*3/uL RBC 4.05 L (4.20-5.50) X10*6/uL Hgb 11.7 L (12.0-16.0) g/dl Hct 36.9 L (37.0-47.0) % MCV 91.1 (80.0-98.0) fL MCH 28.9 (27.0-33.0) pg MCHC 31.7 (31.0-35.0) g/dl RDW 17.9 H (11.0-16.0) % Plt Count 270 (160-400) X10*3/uL MPV 10.1 (9.4-12.3) fL Immature Gran % (Auto) 0.2 (0.0-0.4) % Neut % (Auto) 79.1 H (45-73) % Lymph % (Auto) 15.9 L (20-40) % [place] % (Auto) 4.8 (2-11) % Eos % (Auto) 0.0 (0-4) % Baso % (Auto) 0.0 (0-2) % Lymph # (Auto) 0.8 L (1.2-4.9) X10*3/uL [place] # (Auto) 0.2 (0.1-1.2) X10*3/uL Eos # (Auto) 0.0 (0.0-0.4) X10*3/uL Baso # (Auto) 0.0 (0.0-0.2) X10*3/uL Abs Immat Gran (auto) 0.01 (0.00-0.03) X10*3/uL Absolute Neuts (auto) 4.0 (2.0-8.3) x10*3/uL Absolute Nucleated RBC 0.000 (0.0-0.012) X10*3/uL Nucleated RBC % (auto) 0.0 (0.0-0.2) /100WBC Sodium 143 (135-145) mmol/L Potassium 4.4 (3.3-5.1) mmol/L Chloride 111 H (96-108) mmol/L Carbon Dioxide 25 (22-29) mmol/L Anion Gap 11 L (12-20) BUN 11 (9-16) mg/dL Creatinine 0.83 (0.5-1.4) mg/dL Estim Creat Clear Calc 66.5 Estimated GFR > 60 Random Glucose 109 (60-115) mg/dL Calcium 9.1 (8.4-10.2) mg/dL Total Bilirubin < 0.2 (0.0-1.0) mg/dL Direct Bilirubin < 0.2 (0.0-0.5) mg/dL AST 20 (5-31) U/L ALT 19 (0-31) U/L Alkaline Phosphatase 62 (39-117) U/L Total Protein 6.9 (6.5-8.0) g/dL Albumin 3.7 (3.5-5.0) g/dL Lipase 36 (8-78) U/L Urine Color YELLOW Urine Appearance CLEAR Urine pH 6.5 (5.0-8.0) Ur Specific [place] 1.010 (1.005-1.025) Urine Protein NEG (NEG-TRACE) MG/DL Urine Glucose (UA) NEG (NEG) MG/DL Urine Ketones NEG (NEG) MG/DL Urine Blood NEG (NEG) Urine Nitrite NEG (NEG) Ur Leukocyte Esterase NEG (NEG) Discharge Plan Discharge Clinical Impression: Abdominal pain Qualifiers: Abdominal location: generalized Qualified Code(s): R10.84 - Generalized abdominal pain Patient Disposition: Home, Self-Care Instructions: Abdominal Pain (ED) Additional Instructions: return to ED for any worsening symptoms or concerns CT/CT abdomen pelvis wo con IMPRESSION: ? Nonobstructive calculi in the lower pole of the right kidney. ? No active inflammatory bowel changes or evidence of bowel obstruction. ? Small left pleural effusion with nonspecific interstitial thickening and peripheral reticulation in the lung bases. NO ACUTE FINDINGS ON CT SCAN NEED TO FOLLOW UP WITH PRIMARY CARE DOCTOR POSSIBLE BACTERIAL INFECTION OF STOMACH Prescriptions: New ondansetron 4 mg tablet,disintegrating 4 mg PO Q8H PRN (Reason: nausea and vomiting) Qty: 20 0RF tramadol 50 mg tablet 50 mg PO TID PRN (Reason: pain) Qty: 14 0RF No Action atorvastatin 80 mg tablet 80 mg PO DAILY Qty: 90 6RF polyethylene glycol 3350 17 gram/dose powder 17 g PO DAILY PRN (Reason: constipation) 30 Days Qty: 510 12RF alendronate 70 mg tablet 70 mg PO QWEEK Qty: 12 0RF famotidine 20 mg tablet 20 mg PO BID PRN (Reason: for heartburn) Qty: 60 5RF ergocalciferol (vitamin D2) 1,250 mcg (50,000 unit) capsule 1,250 mcg PO QWEEK Qty: 4 3RF azathioprine 50 mg tablet 50 mg PO TID Qty: 90 5RF albuterol sulfate 90 mcg/actuation HFA aerosol inhaler 1 puff inhalation Q4H PRN (Reason: shortness of breath or wheezing) Qty: 8.5 3RF Rx Instructions: 1 puff as needed Inhalation every 4 hrs albuterol sulfate 2.5 mg /3 mL (0.083 %) solution for nebulization 2.5 mg inhalation QID Qty: 75 0RF Rx Instructions: Nebulization Solution 3 ml Inhalation four times a day pilocarpine HCl 5 mg tablet 5 mg PO TID Qty: 90 5RF baclofen 20 mg tablet 20 mg PO TID PRN (Reason: muscle spasms) 30 Days Qty: 60 1RF tramadol 50 mg tablet 50 mg PO Q8H PRN (Reason: pain) Qty: 30 0RF rtubmtxgqj-tkiepogtnolcp-umtl 50-325-40 mg tablet 1 tab PO Q12H PRN0RF calcium carbonate-vitamin D3 600 mg(1,500mg) -200 unit tablet 1 tab PO DAILY 0RF folic acid 1 mg tablet 1 mg PO DAILY 90 Days Qty: 90 3RF montelukast 10 mg tablet 10 mg PO BEDTIME 90 Days Qty: 90 3RF furosemide 40 mg tablet 40 mg PO BID 30 Days Qty: 60 6RF diphenhydramine HCl [Banophen] 25 mg tablet 25 mg PO Q6H PRN0RF diclofenac sodium 75 mg tablet,delayed release (DR/EC) 75 mg PO BID 0RF cyclobenzaprine 10 mg tablet 10 mg PO TID 0RF amitriptyline 25 mg tablet 25 mg PO TID 0RF omega 8-eee-gdd-fish oil [Fish Oil] 1,200 (144-216) mg capsule 1 cap PO BID 0RF promethazine 25 mg tablet 25 mg PO QID PRN0RF Trelegy Ellipta 100-62.5-25 mcg blister with device 1 inh inhalation DAILY 30 Days Qty: 1 6RF celecoxib [Celebrex] 200 mg capsule 200 mg PO BID PRN (Reason: pain) 30 Days Qty: 60 6RF tizanidine 2 mg tablet 2 mg PO TID PRN (Reason: muscle spasticity) 30 Days Qty: 90 6RF Referrals: Rodney Pleitez MD [Primary Care Provider] - 3 days Print Language: Occitan
[2021-06-10 17:52] VITALS: BP 138/67; PULSE 68; RESP 14; TEMP 36.8; O2SAT 94
[2021-06-10] MEDS: Ondansetron ODT 4 MG TAB.RAPDIS TRANSLINGU (18:13)
[2021-06-10] MEDS: oxyCODONE HCl Immed Release 5 MG TABLET 10 MG PO (18:13)
--- NOTE | 2021-06-10 18:46 | PC.NURSE ---
pt reports abdominal pain, n/d x2 weeks. she reports she was sent to the ed by her provider for further evaluation of kidney stones seen on ultra sound. pt here with her son.
[2021-06-10 19:34] VITALS: BP 145/70; PULSE 66; RESP 16; TEMP 36.1; O2SAT 94
== END 2021-06-10 20:35 | disposition home or self-care (01) ==
PROVIDERS: Emergency Provider Emergency Medicine; PCP Internal Medicine
DX: R10.84 Generalized abdominal pain (principal)
CPT/HCPCS: 36415; 74176; 80053; 81003; 82248; 83690; 85025; 99284; 99285

== ENCOUNTER 2021-06-13 13:07 | Emergency (ER) | payer OTHER, SELFPAY ==
--- NOTE | ~2021-06-13 | XR_ITS ---
EXAMINATION: XR CHEST CLINICAL INFORMATION: Chest COMPARISON: CT abdomen pelvis 06/05/2021 chest radiograph 02/04/2020 TECHNIQUE: Frontal view of the chest was obtained. XR/XR chest 1V FINDINGS/IMPRESSION: The heart is enlarged. Bibasilar atelectasis is present. Small pleural effusions are present. Similar findings have been seen in the past. No acute consolidations, lung masses or CHF.
[2021-06-13 13:14] VITALS: BP 197/89; PULSE 73; RESP 18; TEMP 36.9; O2SAT 95; BMI 32.1
--- NOTE | 2021-06-13 13:17 | ECG_ITS ---
Test Reason : CHEST PAIN Blood Pressure : / mmHG Vent. Rate : 072 BPM Atrial Rate : 072 BPM P-R Int : 116 ms QRS Dur : 070 ms QT Int : 338 ms P-R-T Axes : 006 011 101 degrees QTc Int : 370 ms AGE AND GENDER SPECIFIC ECG ANALYSIS Normal sinus rhythm Low voltage QRS ST elevation consider inferior injury or acute infarct ACUTE IN / STEMI Consider right ventricular involvement in acute inferior infarct Abnormal ECG When compared with ECG of 01-DEC-2020 17:15, ST elevation now present in Inferior leads Non-specific change in ST segment in Lateral leads Nonspecific T wave abnormality, worse in Anterolateral leads Referred By: Generic ED Physician Electronically Signed By:ENMA VERONICA
--- NOTE | 2021-06-13 13:50 | PC.NURSE ---
patient requesting pain medication for generalized pain, pt brought back per request of provider prior to being able to give her the medication
--- NOTE | 2021-06-13 13:59 | ECG_ITS ---
Test Reason : CHEST PAIN Blood Pressure : / mmHG Vent. Rate : 078 BPM Atrial Rate : 078 BPM P-R Int : 112 ms QRS Dur : 060 ms QT Int : 312 ms P-R-T Axes : 080 020 094 degrees QTc Int : 355 ms AGE AND GENDER SPECIFIC ECG ANALYSIS Normal sinus rhythm Low voltage QRS ST elevation consider inferior injury or acute infarct ACUTE OH / STEMI Consider right ventricular involvement in acute inferior infarct Abnormal ECG When compared with ECG of 13-JUN-2021 13:42, No significant change was found Referred By: Brianne Pineda Electronically Signed By:ENMA VERONICA
--- NOTE | 2021-06-13 14:01 | ED.CHESTPAIN ---
HPI - Chest Pain General Chief Complaint: Chest Pain Stated Complaint: chest pain Time Seen by Provider: 06/13/21 13:50 Source: patient and family Mode of arrival: ambulatory Limitations: no limitations History of Present Illness HPI narrative: Patient comes to the emergency room complaining of severe chest pain and severe pressure 01/30. Patient states that 2 days ago she started complaining of intermittent discomfort, this morning startingat 07:00, approximately 7 hours ago, patient started having significant chest pain. Patient states that the pain radiates down both arms, states that she feels lightheaded. Related Data Home Medications Medication Instructions Recorded Confirmed amitriptyline 25 mg tablet 25 mg PO TID tab 01/30/20 05/12/21 cyclobenzaprine 10 mg tablet 10 mg PO TID 01/30/20 05/12/21 diclofenac sodium 75 mg 75 mg PO BID 01/30/20 05/12/21 tablet,delayed release diphenhydramine HCl 25 mg tablet 25 mg PO Q6H PRN 01/30/20 05/12/21 (Banophen) omega 4-abw-jnt-fish oil 1,200 mg 1 cap PO BID cap 01/30/20 05/12/21 (144 mg-216 mg) capsule (Fish Oil) promethazine 25 mg tablet 25 mg PO QID PRN 01/30/20 05/12/21 twwxjvdtwg-glwwqxxobevnq-xczqmqyt 1 tab PO Q12H PRN 08/12/20 05/12/21 50 mg-325 mg-40 mg tablet calcium carbonate 600 mg-vitamin 1 tab PO DAILY 08/12/20 05/12/21 D3 5 mcg (200 unit) tablet Previous Rx's Medication Instructions Recorded atorvastatin 80 mg tablet 80 mg PO DAILY #90 tab 02/16/20 polyethylene glycol 3350 17 17 g PO DAILY PRN 30 Days #510 g 07/11/20 gram/dose oral powder fluticasone fur. 100 mcg-umeclid 1 inh INHALATION DAILY 30 Days #1 08/19/20 62.5 mcg-vilant 25 mcg ea inhalat.powder (Trelegy Ellipta) alendronate 70 mg tablet 70 mg PO QWEEK #12 tab 01/04/21 tramadol 50 mg tablet 50 mg PO Q8H PRN #30 tab 01/11/21 furosemide 40 mg tablet 40 mg PO BID 30 Days #60 tab 02/03/21 famotidine 20 mg tablet 20 mg PO BID PRN #60 tab 02/06/21 ergocalciferol (vitamin D2) 1,250 1,250 mcg PO QWEEK #4 cap 03/07/21 mcg (50,000 unit) capsule azathioprine 50 mg tablet 50 mg PO TID #90 tab 03/16/21 albuterol sulfate 90 mcg/actuation 1 puff INHALATION Q4H PRN #8.5 g 03/29/21 aerosol inhaler albuterol sulfate 2.5 mg (3 mL) INHALATION QID #75 ml 03/30/21 pilocarpine HCl 5 mg tablet 5 mg PO TID #90 tab 04/02/21 celecoxib 200 mg capsule (Celebrex) 200 mg PO BID PRN 30 Days #60 cap 04/27/21 tizanidine 2 mg tablet 2 mg PO TID PRN 30 Days #90 tab 04/27/21 baclofen 20 mg tablet 20 mg PO TID PRN 30 Days #60 tab 04/29/21 folic acid 1 mg tablet 1 mg PO DAILY 90 Days #90 tab 05/12/21 montelukast 10 mg tablet 10 mg PO BEDTIME 90 Days #90 tab 05/12/21 ondansetron 4 mg disintegrating 4 mg PO Q8H PRN #20 tab 06/10/21 tablet tramadol 50 mg tablet 50 mg PO TID PRN #14 tab 06/10/21 Allergies Allergy/AdvReac Type Severity Reaction Status Date / Time hydroxychloroquine Allergy Intermediate problem Verified 06/13/21 13:14 [From Plaquenil] with eyes methotrexate [METHOTREXATE] Allergy Unknown NAUSEA & Verified 06/13/21 13:14 VOMITING Sulfa (Sulfonamide Allergy Unknown swelling Verified 06/13/21 13:14 Antibiotics) [SULFA (SULFONAMIDE ANTIBIOTICS)] vancomycin [VANCOMYCIN] Allergy Unknown Low BP Verified 06/13/21 13:14 Review of Systems Review of Systems: Constitutional : No Weight loss, No Fever, No Chills, No Night Sweats, No Fatigue, No Malaise ENT/Mouth : No Hearing loss, No Ear Pain, No Nasal Congestion, No Sinus Pain, No Hoarseness, No sore throat, No Rhinorrhea, No Swallowing Difficulty Eyes: No Eye Pain, No Swelling, No Redness, No Foreign Body, No Discharge, No Vision Changes Cardiovascular : Complaining of severe chest pain and chest pressure continues radiating down both arms, complaining of lightheadedness Respiratory : No Cough, No Sputum, No Wheezing, No Smoke Exposure, No Dyspnea Gastrointestinal : No Nausea, No Vomiting, No Diarrhea, No Constipation, No abdominal Pain, No Hematochezia, No Melena Genitourinary : no irregular bleeding, No Dysuria, No Urinary Frequency, No Hematuria, No Urinary Incontinence, No Urgency, No Flank Pain, No Urinary Flow Changes, No Hesitancy Musculoskeletal : No joint pain, No Myalgias, No Joint Swelling Skin : No Skin Lesions, No rash Neuro : No Weakness, No Numbness, No Paresthesias, no loss of consciousness, no headache Psych : No Anxiety/Panic, No Depression, No SI/HI/AH/VH, No Social Issues, Heme/Lymph: No Bruising, No Bleeding,No Lymphadenopathy Endocrine : No Polyuria, No Polydipsia, No Temperature Intolerance PMFSH Past Medical History Medical History Benign essential hypertension Chronic obstructive pulmonary disease (COPD) Constipation Elevated LFTs GERD without esophagitis Neck pain Obesity (BMI 30-39.9) Osteopenia Pericardial effusion Pure hypercholesterolemia Sacroiliitis Vitamin D deficiency Surgical History History of bronchoscopy History of skin graft History of surgery History of thoracentesis Hx of section Hx of tubal ligation Status post debridement Family History Family History Father Medical history unknown Mother Diabetes Hypertension Social History Social History Housing: Apartment Alcohol intake: never Patient Tobacco Use Status: Never used Tobacco e-Cigarette/Vaping Use: Never Used service: No Current occupational status: disabled Sexual orientation: Straight/Heterosexual Gender identity: Female Physical Exam Vital Signs: Vital Signs: Last Vital Signs Temp 98.4 F 06/13/21 13:14 Pulse 65 06/13/21 14:25 Resp 16 06/13/21 14:25 BP 168/80 H 06/13/21 14:25 Pulse Ox 98 06/13/21 14:25 BMI result Body Mass Index 32.1 Const: Other: Appearance: Alert. Oriented X3. Patient looks very uncomfortable, keeps grabbing her chest Eyes: Pupils equal, round and reactive to light. ENT: Pharynx normal. Neck: Normal inspection. Neck supple. No lymph nodes noted. No crepitus CVS: Normal heart rate and rhythm. Pulses normal. Normal S1 and S2 Respiratory: No respiratory distress. Breath sounds normal. No Wheezingood BS x4 Skin: Skin warm , mildly clammy. Normal skin color. Normal skin turgor. Extremities: +2 pitting edema No Lacerations. No Rash Neuro: Oriented X 3. No motor deficit. No sensory deficit. Moving all extermities. No slurred speech. Course Course Course Narrative: On arrival to the emergency room, EKG was done, patient has new ST segment elevations in leads V2 V3 and AVF with reciprocal changes in V1 V2. We contacted [facility] cardiac catheterization lab, EKG was faxed to the cardiac microbiological lab technician. I discussed the patient with Dr. Thompson, patient is being transferred to [facility] cardiac catheterization lab Patient received aspirin 325 mg, ticagrelor 180mg, heparin bolus 4000 units, heparin drip, metoprolol tartrate IV 5 mg, IV fluids On arrival, patient's blood pressure 197/89, after metoprolol, blood pressure improved to 154 for systolic. I discussed the diagnosis and plan with the patient and her daughter who is at bedside. All agree with the above-mentioned plan COVID test is negative MDM - Chest Pain Lab Data Result diagrams: 06/13/21 14:04 06/13/21 14:04 Labs: Lab Results 06/13/21 06/13/21 06/13/21 Range/Units 14:04 14:04 14:04 WBC 7.1 (4.8-10.8) X10*3/uL RBC 4.30 (4.20-5.50) X10*6/uL Hgb 12.4 (12.0-16.0) g/dl Hct 38.7 (37.0-47.0) % MCV 90.0 (80.0-98.0) fL MCH 28.8 (27.0-33.0) pg MCHC 32.0 (31.0-35.0) g/dl RDW 17.9 H (11.0-16.0) % Plt Count 293 (160-400) X10*3/uL MPV 9.7 (9.4-12.3) fL Immature Gran % (Auto) 0.6 H (0.0-0.4) % Neut % (Auto) 80.7 H (45-73) % Lymph % (Auto) 13.0 L (20-40) % Wilbarger % (Auto) 5.5 (2-11) % Eos % (Auto) 0.1 (0-4) % Baso % (Auto) 0.1 (0-2) % Lymph # (Auto) 0.9 L (1.2-4.9) X10*3/uL Wilbarger # (Auto) 0.4 (0.1-1.2) X10*3/uL Eos # (Auto) 0.0 (0.0-0.4) X10*3/uL Baso # (Auto) 0.0 (0.0-0.2) X10*3/uL Abs Immat Gran (auto) 0.04 H (0.00-0.03) X10*3/uL Absolute Neuts (auto) 5.7 (2.0-8.3) x10*3/uL Absolute Nucleated RBC 0.000 (0.0-0.012) X10*3/uL Nucleated RBC % (auto) 0.0 (0.0-0.2) /100WBC PT 10.5 (9.9-13.0) SEC INR 0.9 (0.9-1.1) Sodium 140 (135-145) mmol/L Potassium 4.1 (3.3-5.1) mmol/L Chloride 107 (96-108) mmol/L Carbon Dioxide 26 (22-29) mmol/L Anion Gap 11 L (12-20) BUN 11 (9-16) mg/dL Creatinine 0.77 (0.5-1.4) mg/dL Estim Creat Clear Calc 74.0 Estimated GFR > 60 Random Glucose 120 H (60-115) mg/dL Calcium 9.0 (8.4-10.2) mg/dL Total Bilirubin (0.0-1.0) mg/dL Direct Bilirubin (0.0-0.5) mg/dL AST (5-31) U/L ALT (0-31) U/L Alkaline Phosphatase (39-117) U/L Troponin I High Sens (<3.5-17.0) ng/L B-Natriuretic Peptide (<100) pg/mL Total Protein (6.5-8.0) g/dL Albumin (3.5-5.0) g/dL COVID-19 (SEAN) (Negative) COVID-19 Clin Com 06/13/21 06/13/21 06/13/21 Range/Units 14:04 14:04 14:17 WBC (4.8-10.8) X10*3/uL RBC (4.20-5.50) X10*6/uL Hgb (12.0-16.0) g/dl Hct (37.0-47.0) % MCV (80.0-98.0) fL MCH (27.0-33.0) pg MCHC (31.0-35.0) g/dl RDW (11.0-16.0) % Plt Count (160-400) X10*3/uL MPV (9.4-12.3) fL Immature Gran % (Auto) (0.0-0.4) % Neut % (Auto) (45-73) % Lymph % (Auto) (20-40) % Wilbarger % (Auto) (2-11) % Eos % (Auto) (0-4) % Baso % (Auto) (0-2) % Lymph # (Auto) (1.2-4.9) X10*3/uL Wilbarger # (Auto) (0.1-1.2) X10*3/uL Eos # (Auto) (0.0-0.4) X10*3/uL Baso # (Auto) (0.0-0.2) X10*3/uL Abs Immat Gran (auto) (0.00-0.03) X10*3/uL Absolute Neuts (auto) (2.0-8.3) x10*3/uL Absolute Nucleated RBC (0.0-0.012) X10*3/uL Nucleated RBC % (auto) (0.0-0.2) /100WBC PT (9.9-13.0) SEC INR (0.9-1.1) Sodium 140 (135-145) mmol/L Potassium 3.8 (3.3-5.1) mmol/L Chloride 107 (96-108) mmol/L Carbon Dioxide 27 (22-29) mmol/L Anion Gap 10 L (12-20) BUN 12 (9-16) mg/dL Creatinine 0.79 (0.5-1.4) mg/dL Estim Creat Clear Calc 72.1 Estimated GFR > 60 Random Glucose 120 H (60-115) mg/dL Calcium 9.0 (8.4-10.2) mg/dL Total Bilirubin 0.3 (0.0-1.0) mg/dL Direct Bilirubin < 0.2 (0.0-0.5) mg/dL AST 22 (5-31) U/L ALT 20 (0-31) U/L Alkaline Phosphatase 62 (39-117) U/L Troponin I High Sens 196.4 H* (<3.5-17.0) ng/L B-Natriuretic Peptide 100 (<100) pg/mL Total Protein 7.2 (6.5-8.0) g/dL Albumin 3.8 (3.5-5.0) g/dL COVID-19 (SEAN) Negative (Negative) COVID-19 Clin Com See Note ECG Data ECG #1: Attestation: I personally reviewed and interpreted this ECG as follows: (Heart rate 72, new ST segment elevations in leads 2 3 and AVF, reciprocal changes in V1 V2, QTC 370) Discharge Plan Discharge Clinical Impression: ST elevation (STEMI) myocardial infarction Patient Disposition: Xfer Acute Care Hospital Transfer Details: [facility] Cardiac catheterization lab Prescriptions: No Action atorvastatin 80 mg tablet 80 mg PO DAILY Qty: 90 6RF polyethylene glycol 3350 17 gram/dose powder 17 g PO DAILY PRN (Reason: constipation) 30 Days Qty: 510 12RF alendronate 70 mg tablet 70 mg PO QWEEK Qty: 12 0RF famotidine 20 mg tablet 20 mg PO BID PRN (Reason: for heartburn) Qty: 60 5RF ergocalciferol (vitamin D2) 1,250 mcg (50,000 unit) capsule 1,250 mcg PO QWEEK Qty: 4 3RF azathioprine 50 mg tablet 50 mg PO TID Qty: 90 5RF albuterol sulfate 90 mcg/actuation HFA aerosol inhaler 1 puff inhalation Q4H PRN (Reason: shortness of breath or wheezing) Qty: 8.5 3RF Rx Instructions: 1 puff as needed Inhalation every 4 hrs albuterol sulfate 2.5 mg /3 mL (0.083 %) solution for nebulization 2.5 mg inhalation QID Qty: 75 0RF Rx Instructions: Nebulization Solution 3 ml Inhalation four times a day pilocarpine HCl 5 mg tablet 5 mg PO TID Qty: 90 5RF baclofen 20 mg tablet 20 mg PO TID PRN (Reason: muscle spasms) 30 Days Qty: 60 1RF tramadol 50 mg tablet 50 mg PO Q8H PRN (Reason: pain) Qty: 30 0RF ondansetron 4 mg tablet,disintegrating 4 mg PO Q8H PRN (Reason: nausea and vomiting) Qty: 20 0RF tramadol 50 mg tablet 50 mg PO TID PRN (Reason: pain) Qty: 14 0RF mzuwzcyvrd-lnhbrenrbwztk-qxwf 50-325-40 mg tablet 1 tab PO Q12H PRN0RF calcium carbonate-vitamin D3 600 mg(1,500mg) -200 unit tablet 1 tab PO DAILY 0RF folic acid 1 mg tablet 1 mg PO DAILY 90 Days Qty: 90 3RF montelukast 10 mg tablet 10 mg PO BEDTIME 90 Days Qty: 90 3RF furosemide 40 mg tablet 40 mg PO BID 30 Days Qty: 60 6RF diphenhydramine HCl [Banophen] 25 mg tablet 25 mg PO Q6H PRN0RF diclofenac sodium 75 mg tablet,delayed release (DR/EC) 75 mg PO BID 0RF cyclobenzaprine 10 mg tablet 10 mg PO TID 0RF amitriptyline 25 mg tablet 25 mg PO TID 0RF omega 8-cdb-yib-fish oil [Fish Oil] 1,200 (144-216) mg capsule 1 cap PO BID 0RF promethazine 25 mg tablet 25 mg PO QID PRN0RF Trelegy Ellipta 100-62.5-25 mcg blister with device 1 inh inhalation DAILY 30 Days Qty: 1 6RF celecoxib [Celebrex] 200 mg capsule 200 mg PO BID PRN (Reason: pain) 30 Days Qty: 60 6RF tizanidine 2 mg tablet 2 mg PO TID PRN (Reason: muscle spasticity) 30 Days Qty: 90 6RF Interventions: Acute Care Transfer Worksheet (ED) Last Done: 06/13/21 14:54 Discharge Date/Time: 06/13/21 14:55
--- NOTE | 2021-06-13 14:02 | PC.NURSE ---
@[id number] DR POSEY ASK FOR CALL OUT TO COMBINATION TECHNICIAN PAGER [phone] PROMPT [id number]#
--- NOTE | 2021-06-13 14:04 | PC.NURSE ---
WILL ANSWERS PAGE @ 14:0. DR POSEY TAKES OVER CALL RIGHT AWAY
[2021-06-13] MEDS: Ticagrelor 90 MG TABLET 180 MG PO (14:08)
--- NOTE | 2021-06-13 14:08 | PC.NURSE ---
@ 14:08 EKG'S FAXED TO [facility] [phone] @ [address] KALPESH ALEXANDER
[2021-06-13 14:10] LABS: MANUAL DIFF FLAG NO
[2021-06-13] MEDS: Heparin Sodium,Porcine 5,000 UNIT/ML VIAL 4000 UNIT IVPUSH (14:10)
[2021-06-13] MEDS: Aspirin 325 MG TABLET PO (14:10)
[2021-06-13] MEDS: Acetaminophen 325 MG TABLET 650 MG PO (14:10)
[2021-06-13 14:11] LABS: Basophils Percent Auto 0.1 % (0-2); Eosinophils Percent Auto 0.1 % (0-4); Hematocrit 38.7 % (37.0-47.0); Hemoglobin 12.4 g/dl (12.0-16.0); Imm Gran Abs Auto 0.04 X10*3/uL (0.00-0.03); Imm Gran Pct Auto 0.6 % (0.0-0.4); Lymphocytes Absolute Auto 0.9 X10*3/uL (1.2-4.9); Mean Corpuscular Hemoglobin 28.8 pg (27.0-33.0); Mean Platelet Volume 9.7 fL (9.4-12.3); Monocytes Absolute Auto 0.4 X10*3/uL (0.1-1.2); Monocytes Percent Auto 5.5 % (2-11); Neutrophils Absolute Auto 5.7 x10*3/uL (2.0-8.3); Neutrophils Percent Auto 80.7 % (45-73); Platelet Count 293 X10*3/uL (160-400); Red Cell Distribution Width 17.9 % (11.0-16.0); White Blood Count 7.1 X10*3/uL (4.8-10.8)
--- NOTE | 2021-06-13 14:15 | PC.NURSE ---
@ 14:15 DR GOODE CALL FROM [facility] AND ASKS TO SPEAK WITH DR KALPESH POSEY TAKES OVER CALL RIGHT AWAY
[2021-06-13 14:16] LABS: INTERNATIONAL NORM RATIO 0.9 (0.9-1.1); Prothrombin Time 10.5 SEC (9.9-13.0)
[2021-06-13 14:17] VITALS: BP 153/72; PULSE 69; RESP 16; O2SAT 98
--- NOTE | 2021-06-13 14:17 | PC.NURSE ---
@14:16 [facility] CALLED FOR ALS TRANSPORT TO [facility] PRESS OPERATOR WITH [employer]Y END TESTER AND HEPARIN @14:22 SHEY FROM [facility] CALLS AND GIVES RN TO RN NUMBER [phone]
[2021-06-13] MEDS: Metoprolol Tartrate 5 MG/5 ML VIAL IVPUSH (14:19)
[2021-06-13] MEDS: Heparin Sodium,Porcine/1/2NS 25,000 UNIT/250 ML IV.SOLN 10.81 UNIT IVCONT (14:22)
[2021-06-13 14:25] VITALS: BP 168/80; PULSE 65; RESP 16; O2SAT 98
[2021-06-13 14:26] LABS: Anion Gap 11 (12-20); Blood Urea Nitrogen 11 mg/dL (9-16); Carbon Dioxide 26 mmol/L (22-29); Chloride 107 mmol/L (96-108); Estimated Glomerular Filt Rate > 60; Glucose Random 120 mg/dL (60-115); Potassium 4.1 mmol/L (3.3-5.1); Sodium 140 mmol/L (135-145)
[2021-06-13 14:27] LABS: Alanine Aminotransferase 20 U/L (0-31); Albumin Level 3.8 g/dL (3.5-5.0); Alkaline Phosphatase 62 U/L (39-117); Anion Gap 10 (12-20); Aspartate Amino Transferase 22 U/L (5-31); Bilirubin Direct < 0.2 mg/dL (0.0-0.5); Bilirubin Total 0.3 mg/dL (0.0-1.0); Blood Urea Nitrogen 12 mg/dL (9-16); Carbon Dioxide 27 mmol/L (22-29); Chloride 107 mmol/L (96-108); Creatinine Clr Calc Pharmacy 72.1; Estimated Glomerular Filt Rate > 60; Glucose Random 120 mg/dL (60-115); Potassium 3.8 mmol/L (3.3-5.1); Sodium 140 mmol/L (135-145); Total Protein 7.2 g/dL (6.5-8.0)
--- NOTE | 2021-06-13 14:27 | PC.NURSE ---
[facility] HERE AT THIS TIME
--- NOTE | 2021-06-13 14:31 | PC.NURSE ---
acute ma iv established labs sent meds given as ordered
[2021-06-13 14:35] LABS: COVID-19 Test Negative (Negative)
[2021-06-13 14:43] LABS: B Type Natriuretic Peptide 100 pg/mL (<100)
[2021-06-13 14:48] LABS: Troponin-I High Sensitivity 196.4 ng/L (<3.5-17.0)
== END 2021-06-13 14:55 | disposition short-term general hospital (02) ==
PROVIDERS: Emergency Provider Emergency Medicine; PCP Internal Medicine
DX: I21.3 ST elevation (STEMI) myocardial infarction of unspecified site (principal); R07.89 Other chest pain; Z79.899 Other long term (current) drug therapy; Z20.822 Contact with and (suspected) exposure to COVID-19
CPT/HCPCS: 36415; 71045; 80048; 80076; 83880; 84484; 85025; 85610; 87635; 93005; 96365; 96375; 99285

== ENCOUNTER 2021-06-24 09:21 | Outpatient (REF) | payer OTHER, SELFPAY ==
[2021-06-24 10:26] LABS: Hematocrit 36.4 % (37.0-47.0); Hemoglobin 11.4 g/dl (12.0-16.0); Mean Corpuscular HGB Conc 31.3 g/dl (31.0-35.0); Mean Corpuscular Hemoglobin 28.6 pg (27.0-33.0); Mean Corpuscular Volume 91.5 fL (80.0-98.0); Mean Platelet Volume 10.4 fL (9.4-12.3); Platelet Count 341 X10*3/uL (160-400); Red Blood Count 3.98 X10*6/uL (4.20-5.50); Red Cell Distribution Width 17.7 % (11.0-16.0); White Blood Count 6.3 X10*3/uL (4.8-10.8)
[2021-06-24 10:50] LABS: Alanine Aminotransferase 23 U/L (0-31); Albumin Level 3.6 g/dL (3.5-5.0); Alkaline Phosphatase 66 U/L (39-117); Anion Gap 12 (12-20); Aspartate Amino Transferase 21 U/L (5-31); Bilirubin Total 0.5 mg/dL (0.0-1.0); Blood Urea Nitrogen 15 mg/dL (9-16); Calcium 9.5 mg/dL (8.4-10.2); Carbon Dioxide 27 mmol/L (22-29); Chloride 108 mmol/L (96-108); Estimated Glomerular Filt Rate > 60; Glucose Random 92 mg/dL (60-115); Potassium 3.9 mmol/L (3.3-5.1); Sodium 143 mmol/L (135-145); Total Protein 6.7 g/dL (6.5-8.0)
[2021-06-27 18:32] LABS: Complement C3 76 mg/dL (83-193)
[2021-06-27 21:42] LABS: Anti DNA DS Antibody <1 IU/mL
== END 2021-06-24 09:22 | disposition home or self-care (01) ==
LOC: HO.LAB 09:21
PROVIDERS: Student in an Organized Health Care Education/Training Program; PCP Internal Medicine; Visit Provider Nurse Practitioner Family
DX: M32.9 Systemic lupus erythematosus, unspecified (principal); I21.9 Acute myocardial infarction, unspecified
CPT/HCPCS: 36415; 80053; 85027; 86140; 86160; 86225

== ENCOUNTER → 2021-07-05 12:48 | Outpatient (BNVA) | payer OTHER, SELFPAY | PROVIDERS: PCP Internal Medicine; Visit Provider Internal Medicine Pulmonary Disease | DX: J44.9 Chronic obstructive pulmonary disease, unspecified (principal); R06.00 Dyspnea, unspecified; M32.9 Systemic lupus erythematosus, unspecified; M35.00 Sjogren syndrome, unspecified; Z79.899 Other long term (current) drug therapy | CPT/HCPCS: 99212 ==

== ENCOUNTER → 2021-07-12 13:57 | Outpatient (BNVA) | payer OTHER, SELFPAY | PROVIDERS: PCP Internal Medicine; Referring Provider Internal Medicine; Visit Provider Internal Medicine | DX: I21.21 ST elevation (STEMI) myocardial infarction involving left circumflex coronary artery (principal); I31.3 Pericardial effusion (noninflammatory) | CPT/HCPCS: 93005; 99212 ==

== ENCOUNTER 2021-07-14 08:59 | Outpatient (REF) | payer OTHER, SELFPAY ==
--- NOTE | ~2021-07-14 | CT_ITS ---
EXAMINATION: CT ABDOMEN AND PELVIS WITH CONTRAST CLINICAL INFORMATION: Abdominal pain. COMPARISON: Previous CT of the abdomen and pelvis May 2021 abdominal ultrasound May 2021 TECHNIQUE: Multidetector volumetric images were obtained from the superior aspect of the liver through the pubic symphysis following administration 85 mL of Omnipaque 350 intravenous contrast. Sagittal and coronal reformatted images were obtained on the technologist's workstation. Oral contrast: Yes. This CT examination was performed using dose optimization techniques as appropriate, variously including the following: *Automated exposure control *Adjustment of mA and/or kV according to patient size (this includes techniques or standardized protocols for targeted exams where dose is matched to indication/reason for exam; i.e. extremities or head) *Use of iterative reconstruction technique DLP: 376 mGy-cm FINDINGS: LUNG BASES: There is coronary artery calcification. There is a left pleural effusion and adjacent compressive left lower lobe atelectasis. This is increased from May 2021 exam. LIVER, GALLBLADDER, AND BILIARY TREE: The liver is normal in size, shape, and attenuation. No focal hepatic lesion or biliary ductal dilatation is present. The gallbladder is unremarkable with no evidence of radiopaque gallstones, gallbladder wall thickening, or obvious pericholecystic inflammatory changes. PANCREAS: Unremarkable. SPLEEN: Unremarkable. ADRENAL GLANDS: Unremarkable. KIDNEYS AND URETERS: There is cortical thinning of the anterior lower pole of the right kidney and decreased enhancement. Appearance is questionable for infarct. There are 2 stones in the lower pole of the right kidney measuring 2 and 5 mm. These do not appear appreciably changed. The kidneys are otherwise unremarkable. BLADDER: Unremarkable. GASTROINTESTINAL TRACT: The small and large bowel are unremarkable. The appendix is not seen. ABDOMINAL WALL: There is diastasis of the rectus muscles and umbilical and periumbilical hernias containing fat. LYMPH NODES: Normal. VASCULAR: There is evidence of atherosclerotic disease. No aneurysm is seen. PELVIC VISCERA: Unremarkable. OSSEOUS STRUCTURES: There are degenerative changes of the spine. CT/CT abdomen pelvis w con IMPRESSION: Cortical thinning and decreased enhancement of the anterior lower pole of the right kidney questionable for an infarct. Right lower pole renal stones. Left pleural effusion and adjacent compressive atelectasis at the left lower lobe. This is increased from recent exam. Atherosclerotic disease. Umbilical and periumbilical hernias containing fat. Fleischner guidelines were followed.
[2021-07-14] MEDS: iohexoL 350 MG/ML 100 ML INFUS..BTL IV (09:51)
== END 2021-07-14 09:00 | disposition home or self-care (01) ==
LOC: HO.CT 08:59
PROVIDERS: Visit Provider Internal Medicine Pulmonary Disease
DX: R10.9 Unspecified abdominal pain (principal)
CPT/HCPCS: 74177; Q9967

== ENCOUNTER → 2021-07-21 09:22 | Outpatient (REF) | payer OTHER, SELFPAY | LOC: HO.SL 09:22 | PROVIDERS: PCP Internal Medicine; Visit Provider Nurse Practitioner Family | DX: G47.33 Obstructive sleep apnea (adult) (pediatric) (principal) | CPT/HCPCS: 95806 ==

== ENCOUNTER 2021-07-28 09:04 | Outpatient (REF) | payer OTHER, SELFPAY ==
--- NOTE | ~2021-07-28 | MM_ITS ---
EXAMINATION: MM SCREENING DIGITAL BREAST TOMOSYNTHESIS, BILATERAL CLINICAL INFORMATION: Screening. Asymptomatic. The lifetime risk of breast cancer based on the Tyrer-Cuzick Model is 11.1%. COMPARISON: Mammography: 07/09/2020 and studies dating back to 06/12/2017 TECHNIQUE: Digital breast tomosynthesis is performed in both the craniocaudal and mediolateral oblique views along with computer-aided detection (CAD). Synthesized 2D images are generated from the tomosynthesis. FINDINGS: There are scattered areas of fibroglandular density (ACR BI-RADS breast composition Category b). There is a stable parenchymal pattern of the left breast with no new abnormal dominant mass or suspicious calcifications. Within the superior aspect of the right breast approximately 8 cm from the nipple, there is a 5 x 4 mm ill-defined density not definitely seen on prior studies for which spot compression view is recommended. A definite correlate on craniocaudal view is not identified. Spot compression view recommended. MM/MM tomosynthesis screening BI IMPRESSION: Right breast density for further evaluation with spot compression film. If the density persists, then ultrasound could be performed at that time. ASSESSMENT: BI-RADS 0: Incomplete - Need Additional Imaging Evaluation. RECOMMENDATION: 1. Additional views of the right breast. 2. Targeted ultrasound if warranted after review of the additional views. 3. Radiology department staff will contact the patient for additional imaging.
== END 2021-07-28 09:05 | disposition home or self-care (01) ==
LOC: HO.MAMMO 09:04
PROVIDERS: Visit Provider Internal Medicine
DX: Z12.31 Encounter for screening mammogram for malignant neoplasm of breast (principal)
CPT/HCPCS: 77063; 77067

== ENCOUNTER 2021-08-05 08:16 | Outpatient (REF) | payer OTHER, SELFPAY ==
--- NOTE | ~2021-08-05 | MM_ITS ---
EXAMINATION: MM DIAGNOSTIC DIGITAL BREAST TOMOSYNTHESIS, RIGHT CLINICAL INFORMATION: Recall from screening for question of asymmetric density central upper right breast on MLO view. COMPARISON: Mammography: 07/28/2021, 07/09/2020, 07/07/2019, 07/04/2018 TECHNIQUE: Digital breast tomosynthesis is performed. 2D images are generated from the tomosynthesis. The following views are obtained: Spot MLO x2, standard ML. FINDINGS: There are scattered areas of fibroglandular density (ACR BI-RADS breast composition Category b). There are scattered fibroglandular densities in the breast. There is no definite isolated new persistent asymmetric density demonstrated on the additional views. No focal architectural abnormality. Results are discussed with the patient at time of visit, using an grader tender. As a precaution, short interval six-month follow-up right mammography will be performed in order to exclude remote possibility of an occult developing density. MM/MM tomosynthesis added views R IMPRESSION: Additional views show no definite persistent asymmetric density. No focal architectural abnormality. ASSESSMENT: BI-RADS 3: Probably Benign RECOMMENDATION: Diagnostic right mammography in 6 months. This patient's information was entered into a reminder system with a target due date for their next mammogram.
== END 2021-08-05 08:17 | disposition home or self-care (01) ==
LOC: HO.MAMMO 08:16
PROVIDERS: PCP Internal Medicine; Visit Provider Internal Medicine
DX: R92.2 Inconclusive mammogram (principal)
CPT/HCPCS: 77061; 77065

== ENCOUNTER 2021-08-10 07:52 | Outpatient (REF) | payer OTHER, SELFPAY ==
[2021-08-10 08:26] LABS: MANUAL DIFF FLAG NO
[2021-08-10 08:55] LABS: Eosinophils Percent Auto 0.4 % (0-4); Hematocrit 37.5 % (37.0-47.0); Hemoglobin 11.6 g/dl (12.0-16.0); Imm Gran Abs Auto 0.01 X10*3/uL (0.00-0.03); Imm Gran Pct Auto 0.2 % (0.0-0.4); Lymphocytes Absolute Auto 1.7 X10*3/uL (1.2-4.9); Lymphocytes Percent Auto 35.3 % (20-40); Mean Corpuscular HGB Conc 30.9 g/dl (31.0-35.0); Mean Corpuscular Volume 93.8 fL (80.0-98.0); Mean Platelet Volume 10.4 fL (9.4-12.3); Monocytes Absolute Auto 0.4 X10*3/uL (0.1-1.2); Monocytes Percent Auto 8.7 % (2-11); Neutrophils Absolute Auto 2.7 x10*3/uL (2.0-8.3); Neutrophils Percent Auto 55.4 % (45-73); Platelet Count 255 X10*3/uL (160-400); Red Cell Distribution Width 18.3 % (11.0-16.0); White Blood Count 4.8 X10*3/uL (4.8-10.8)
[2021-08-10 09:15] LABS: Appearance Urine CLEAR; Color Urine YELLOW; Glucose Urine UA NEG (NEG); Leukocyte Esterase Urine NEG (NEG); Nitrite Urine NEG (NEG); Specific Gravity - Urine 1.015 (1.005-1.025); Urine Blood NEG (NEG); Urine Ketones NEG (NEG); Urine Protein NEG (NEG-TRACE)
[2021-08-10 09:22] LABS: Alanine Aminotransferase 21 U/L (0-31); Albumin Level 3.7 g/dL (3.5-5.0); Alkaline Phosphatase 57 U/L (39-117); Anion Gap 13 (12-20); Aspartate Amino Transferase 25 U/L (5-31); Bilirubin Total 0.2 mg/dL (0.0-1.0); Blood Urea Nitrogen 13 mg/dL (9-16); Carbon Dioxide 25 mmol/L (22-29); Chloride 108 mmol/L (96-108); Cholesterol 207 mg/dL; Estimated Glomerular Filt Rate > 60; Glucose Fasting 84 mg/dL (60-99); HDL Cholesterol 37 mg/dL; LDL Cholesterol Calculated 120 mg/dl; Potassium 3.8 mmol/L (3.3-5.1); Sodium 142 mmol/L (135-145); Total Protein 6.9 g/dL (6.5-8.0); Triglycerides 254 mg/dL
[2021-08-10 09:45] LABS: TSH reflex Free T4 1.13 uIU/mL (0.32-4.0); Vitamin D 25-OH Total 36.2 ng/mL (>30)
== END 2021-08-10 07:53 | disposition home or self-care (01) ==
LOC: HO.LAB 07:52
PROVIDERS: PCP Internal Medicine; Visit Provider Internal Medicine
DX: E78.00 Pure hypercholesterolemia, unspecified (principal); I21.3 ST elevation (STEMI) myocardial infarction of unspecified site; I10 Essential (primary) hypertension; R79.89 Other specified abnormal findings of blood chemistry; E55.9 Vitamin D deficiency, unspecified
CPT/HCPCS: 36415; 80053; 80061; 81003; 82306; 84443; 85025

== ENCOUNTER → 2021-08-15 13:37 | Outpatient (BNVA) | payer OTHER, SELFPAY | PROVIDERS: PCP Internal Medicine; Visit Provider Internal Medicine Rheumatology | DX: M32.9 Systemic lupus erythematosus, unspecified (principal); M35.00 Sjogren syndrome, unspecified; M81.0 Age-related osteoporosis without current pathological fracture; M47.816 Spondylosis without myelopathy or radiculopathy, lumbar region; E66.9 Obesity, unspecified; Z68.30 Body mass index [BMI] 30.0-30.9, adult; M79.7 Fibromyalgia; Z79.52 Long term (current) use of systemic steroids; Z79.899 Other long term (current) drug therapy | CPT/HCPCS: 99212 ==

== ENCOUNTER → 2021-08-17 08:18 | Outpatient (REF) | payer OTHER, SELFPAY ==
--- NOTE | 2021-08-17 08:45 | CA_ITS ---
Transthoracic Echocardiogram Patient (Last, First, Middle): Erlinda Carbajal M Gender: Female Date of : 1960 Age: 60 Procedure Date: 08/17/2021 Procedure Type: Transthoracic Echocardiogram Location: OP Height: 154.94 cm Weight: 74.39 kg BSA: 1.74 m2 Heart Rate: bpm BP: 121 / 60 mmHg Clay Machine Operator: GUREO Referring MD: Avtar Morgan MD Symptoms: I21.21 - ST elevation (STEMI) myocardial infarction invol... Study Quality: Fair ECG Rhythm: Sinus Conclusions: - The left ventricular systolic function is normal. The calculated ejection fraction is 68% by biplane method. - No obvious valvular pathology seen on this study. Findings Left Ventricle Normal left ventricular cavity size. There is normal left ventricular wall thickness. The left ventricular systolic function is normal. The calculated ejection fraction is 68% by biplane method. There is no evidence of regional wall motion abnormalities. Diastolic function is normal for age. Right Ventricle Normal right ventricular cavity size and systolic function. Atria Both atria are normal in size. Aortic Valve There is a normal trileaflet aortic valve. There is no aortic valve stenosis. There is no aortic valve regurgitation. Mitral Valve The mitral valve appears normal. There is mild mitral valve regurgitation. There is no mitral valve stenosis. Pulmonic Valve The pulmonic valve is likely normal. Tricuspid Valve Normal tricuspid valve structure. There is mild tricuspid valve regurgitation. The right ventricular systolic pressure is 41 mmHg. Mild pulmonary hypertension is present. Great Vessels The asc aorta and aortic arch are normal in size. Venous The inferior vena cava is normal in size and collapses greater than 50% with inspiration. Pericardium/Pleural Prominent epicardial adipose tissue noted. No significant pericardial effusion. Prior Study Comparison No significant change compared to prior study dated: 07/29/2020. Recommendations, Care & Conclusions No obvious valvular pathology seen on this study. Measurements 2D Linear Measurements IVSd: 1.00 0.6-0.9/0.6-1.0 cm LVIDd: 4.46 3.9-5.3/4.2-5.9 cm LVIDd Index: 2.56 2.4-3.2/2.2-3.1 cm/m2 LVIDs: 3.16 2.0-3.6 cm LVPWd: 0.96 0.7-1.1 cm LA Diam: 3.70 2.7-3.8/3.0-4.0 cm LAIDs Index: 2.13 1.5-2.3 cm/m2 LV Mass: 181.90 67-162/88-224 g LV Mass Index: 104.54 43-95/49-115 g/m2 LVOT Diam: 1.90 3.0+(-)1.3 cm 2D Systolic Function EF 4C: 62.20 >55% EF 2C: 70.90 >55% EF BiP: 67.90 >55% Mitral Valve MV Pk E: 0.93 MV PK A: 0.98 MV Decel Time: 235.00 E/A: 1.00 E'Lateral: 8.38 E'Medial: 9.57 E/E' Med: 9.70 E/E' Lat: 11.10 PHT: 69.00 MVA PHT: 3.19 Decel Bradford: 3.96 Aortic Valve AoV Pk Noe: 1.47 AoV Mn Noe: 1.00 AoV VTI: 0.30 AoV Pk Grad: 9.00 Aov Mn Grad: 4.00 CHYNA Cont.VTI: 2.51 LVOT LVOT Pk Noe: 1.22 LVOT Mn Noe: 0.84 LVOT VTI: 0.26 LVOT Pk Grad: 6.00 LVOT Mn Grad: 3.00 LVOT Diam: 1.90 LVOT Area: 2.84 Diastolic Function MV Pk E: 0.93 MV Pk A: 0.98 E/A: 1.00 E'Medial: 9.57 E/E' Med: 9.70 E' Laterial: 8.38 E/E' Lat: 11.10 Right Ventricle TAPSE (mm): 20.40 TVS' Noe: 12.50 Tricuspid Valve TR Pk Noe: 2.86 TR Pk Grad: 33.00 RA Press: 8.00 RVSP: 41.00 Great Vessels Aorta Sinus of Valsalva: 2.90 2.0-3.5 cm Ao Asc: 3.40 2.1-3.4 cm Ao Arch: 2.90 Updated in Other Vendor System with Status of Final Avtar Morgan MD electronically signed on 08/19/2021 12:49:59 PM with status of Final
== END ==
LOC: HO.CARD 08:18
PROVIDERS: Visit Provider Internal Medicine
DX: I21.21 ST elevation (STEMI) myocardial infarction involving left circumflex coronary artery (principal)
CPT/HCPCS: 93306

== ENCOUNTER → 2021-08-25 09:07 | Outpatient (BNVA) | payer OTHER, SELFPAY | PROVIDERS: PCP Internal Medicine; Referring Provider Internal Medicine; Visit Provider Internal Medicine | DX: I21.21 ST elevation (STEMI) myocardial infarction involving left circumflex coronary artery (principal) | CPT/HCPCS: 99212 ==

== ENCOUNTER 2021-08-29 07:32 | Outpatient (REF) | payer OTHER, SELFPAY ==
[2021-08-29 08:48] LABS: Alanine Aminotransferase 22 U/L (0-31); Albumin Level 3.7 g/dL (3.5-5.0); Alkaline Phosphatase 56 U/L (39-117); Anion Gap 13 (12-20); Aspartate Amino Transferase 24 U/L (5-31); Bilirubin Total 0.3 mg/dL (0.0-1.0); Blood Urea Nitrogen 12 mg/dL (9-16); C Reactive Protein 0.23 mg/dL (< or = 0.50); Calcium 9.5 mg/dL (8.4-10.2); Carbon Dioxide 24 mmol/L (22-29); Chloride 111 mmol/L (96-108); Cholesterol 195 mg/dL; Estimated Glomerular Filt Rate > 60; Glucose Fasting 81 mg/dL (60-99); HDL Cholesterol 39 mg/dL; LDL Cholesterol Calculated 121 mg/dl; Potassium 3.9 mmol/L (3.3-5.1); Sodium 144 mmol/L (135-145); Total Protein 6.7 g/dL (6.5-8.0); Triglycerides 179 mg/dL
[2021-08-29 09:53] LABS: Erythrocyte Sedimentation Rate 25 MM/HR (0-20)
[2021-08-29 11:00] LABS: Creatinine Urine 91.44 mg/dL; Microalbum/Creatinine Ratio Ur 10.9 ug/mg cr
[2021-08-30 17:42] LABS: Complement C3 54 mg/dL (83-193)
[2021-08-31 10:16] LABS: Anti DNA DS Antibody 1 IU/mL
== END 2021-08-29 07:33 | disposition home or self-care (01) ==
LOC: HO.LAB 07:32
PROVIDERS: Internal Medicine Rheumatology; PCP Internal Medicine; Visit Provider Internal Medicine
DX: E78.00 Pure hypercholesterolemia, unspecified (principal); M32.9 Systemic lupus erythematosus, unspecified; M35.00 Sjogren syndrome, unspecified
CPT/HCPCS: 36415; 80053; 80061; 82043; 85652; 86140; 86160; 86225

== ENCOUNTER 2021-09-29 09:28 | Outpatient (REF) | payer OTHER, SELFPAY ==
--- NOTE | ~2021-09-29 | XR_ITS ---
EXAMINATION: XR CHEST CLINICAL INFORMATION: Dyspnea. COMPARISON: 06/13/2021 and 02/03/2021 chest radiographs. TECHNIQUE: 2 views of the chest were obtained. FINDINGS: Small left and very small right pleural effusions are seen with superjacent linear opacities. The upper lung naranjo are clear. The heart and mediastinal structures are unremarkable. XR/XR chest 2V IMPRESSION: Small bilateral pleural effusions with superjacent opacities suggesting atelectasis and/or infiltrates, greater on the right lung base. These findings appear mildly increased compared to the previous studies.
== END 2021-09-29 09:29 | disposition home or self-care (01) ==
LOC: HO.XRAY 09:28
PROVIDERS: PCP Internal Medicine; Visit Provider Internal Medicine
DX: R06.00 Dyspnea, unspecified (principal)
CPT/HCPCS: 71046

== ENCOUNTER → 2021-09-30 11:00 | Outpatient (BNVA) | payer OTHER, SELFPAY | PROVIDERS: PCP Internal Medicine; Visit Provider Nurse Practitioner Family | DX: M81.0 Age-related osteoporosis without current pathological fracture (principal); M46.1 Sacroiliitis, not elsewhere classified; M53.3 Sacrococcygeal disorders, not elsewhere classified; M43.06 Spondylolysis, lumbar region; M54.16 Radiculopathy, lumbar region | CPT/HCPCS: 99212 ==

== ENCOUNTER → 2021-10-17 12:30 | Outpatient (BNVA) | payer OTHER, SELFPAY | PROVIDERS: PCP Internal Medicine; Visit Provider Internal Medicine Pulmonary Disease | DX: J44.9 Chronic obstructive pulmonary disease, unspecified (principal); Z79.899 Other long term (current) drug therapy | CPT/HCPCS: 94618; 99212 ==

== ENCOUNTER 2021-10-19 15:55 | Outpatient (REF) | payer OTHER, SELFPAY ==
--- NOTE | ~2021-10-19 | MR_ITS ---
EXAMINATION: MR LUMBAR SPINE WITHOUT CONTRAST CLINICAL INFORMATION: Bilateral leg pain. COMPARISON: CT scan of the abdomen and pelvis 06/10/2021. Plain films of the lumbar spine 05/10/2020. TECHNIQUE: MRI of the lumbar spine was obtained using routine sequences without contrast. FINDINGS: VERTEBRAL BODIES AND PARASPINAL STRUCTURES: There is a transient vertebra at the lumbosacral junction with partial sacralization of L5 on the right. The study redemonstrates a sigmoid scoliosis which is convex to the left in the upper lumbar region and toward the right at L4-L5. There is a mild grade 1 anterolisthesis of L5 on S1. There are retrolistheses of L2 on L3 and L4 on L5. There is multilevel narrowing of intervertebral disc height with loss of signal from the discs at L2-L3, L3-L4 and L4-L5. There are severe degenerative endplate contour changes at these levels with predominantly fatty endplate signal. Vertebral body heights are maintained and there are no acute fractures. Overall, marrow signal is homogenous. The visualized retroperitoneal and pelvic structures are unremarkable. CONUS MEDULLARIS AND CAUDA EQUINA: Normal, terminating at the level of L1. The lower thoracic spinal cord appears normal. The cauda equina nerve roots and filum terminale appear normal. SPINAL LEVELS: L1-L2: The facet joints appear normal bilaterally. Disc contour is normal. There is no central stenosis or foraminal narrowing. L2-L3: There is moderate bilateral facet arthropathy with ligamenta flava hypertrophy and facet joint effusions. There is a broad-based posterior disc protrusion with extruded components extending into the neural foramina bilaterally and far laterally on the right with impingement on the exiting left L2 and exiting and extraforaminal right L2 nerve roots. There is narrowing of the bilateral subarticular recesses. There is mild central stenosis. L3-L4: There is moderate bilateral facet arthropathy with ligamenta flava hypertrophy and facet joint effusions. There is a broad-based posterior disc protrusion extending into the neural foramina bilaterally, more prominently on the right and there is impingement on the exiting right L3 nerve root. There is mild narrowing of the bilateral subarticular recesses, and there is mild central stenosis. L4-L5: There is moderate to severe left and moderate right facet arthropathy. There is a broad-based posterior disc protrusion extending into the left greater than right neural foramina and there is impingement on the exiting left L4 nerve root. In addition, there is an extruded component extending into the left lateral recess of L5 with mass effect on the traversing left L5 nerve root. There is no central stenosis. L5-S1: There are bilateral L5 partes interarticulares defects. There is mild unroofing of the disc as a result of the anterolisthesis. There is no foraminal nerve root impingement, and there is no central stenosis. MR/MR lumbar spine wo con IMPRESSION: 1. At L4-L5 there is a posterior disc protrusion extending into the neural foramina, and there is impingement on the exiting left L4 nerve root. There is also an extruded disc extending into the left lateral recess of L5 with mass effect on the traversing left L5 nerve root. There is no central stenosis. 2. At L5-S1 there are bilateral L5 partes interarticulares defects. There is mild unroofing of the disc, but there is no foraminal nerve root impingement or central stenosis. 3. At L2-L3 there is facet arthropathy and there is a broad-based posterior disc protrusion extending into the neural foramina bilaterally and far laterally on the right with impingement on the exiting left L2 and exiting and extraforaminal right L2 nerve roots. There is mild central stenosis. 4. At L3-L4 there is a broad-based posterior disc protrusion extending into the neural foramina, more prominent on the right with impingement on the exiting right L3 nerve root. There is mild central stenosis.
== END 2021-10-19 15:56 | disposition home or self-care (01) ==
LOC: HO.MRI 15:55
PROVIDERS: Visit Provider Nurse Practitioner Family
DX: M43.06 Spondylolysis, lumbar region (principal); M54.16 Radiculopathy, lumbar region; M46.1 Sacroiliitis, not elsewhere classified; M53.3 Sacrococcygeal disorders, not elsewhere classified; M81.0 Age-related osteoporosis without current pathological fracture
CPT/HCPCS: 72148

== ENCOUNTER 2021-12-05 11:43 | Outpatient (REF) | payer OTHER, SELFPAY ==
[2021-12-05 13:18] LABS: MANUAL DIFF FLAG NO
[2021-12-05 13:27] LABS: Eosinophils Percent Auto 0.4 % (0-4); Hematocrit 38.6 % (37.0-47.0); Imm Gran Abs Auto 0.01 X10*3/uL (0.00-0.03); Imm Gran Pct Auto 0.2 % (0.0-0.4); Lymphocytes Absolute Auto 0.8 X10*3/uL (1.2-4.9); Lymphocytes Percent Auto 17.3 % (20-40); Mean Corpuscular HGB Conc 31.1 g/dl (31.0-35.0); Mean Corpuscular Hemoglobin 29.3 pg (27.0-33.0); Mean Corpuscular Volume 94.4 fL (80.0-98.0); Mean Platelet Volume 10.7 fL (9.4-12.3); Monocytes Absolute Auto 0.3 X10*3/uL (0.1-1.2); Monocytes Percent Auto 7.3 % (2-11); Neutrophils Absolute Auto 3.4 x10*3/uL (2.0-8.3); Neutrophils Percent Auto 74.8 % (45-73); Platelet Count 217 X10*3/uL (160-400); Red Blood Count 4.09 X10*6/uL (4.20-5.50); Red Cell Distribution Width 17.3 % (11.0-16.0); White Blood Count 4.5 X10*3/uL (4.8-10.8)
[2021-12-05 13:48] LABS: Alanine Aminotransferase 26 U/L (0-31); Albumin Level 3.5 g/dL (3.5-5.0); Alkaline Phosphatase 77 U/L (39-117); Anion Gap 15 (12-20); Aspartate Amino Transferase 22 U/L (5-31); Bilirubin Total 0.4 mg/dL (0.0-1.0); Blood Urea Nitrogen 11 mg/dL (9-16); C Reactive Protein 0.33 mg/dL (< or = 0.50); Calcium 8.5 mg/dL (8.4-10.2); Carbon Dioxide 23 mmol/L (22-29); Chloride 109 mmol/L (96-108); Estimated Glomerular Filt Rate > 60; Glucose Random 123 mg/dL (60-115); Potassium 3.8 mmol/L (3.3-5.1); Sodium 143 mmol/L (135-145); Total Protein 6.8 g/dL (6.5-8.0)
[2021-12-05 14:10] LABS: Total Protein Urine Random < 7 mg/dL (<12)
[2021-12-05 19:08] LABS: Erythrocyte Sedimentation Rate 22 MM/HR (0-20)
[2021-12-07 16:47] LABS: Complement C3 49 mg/dL (83-193)
[2021-12-08 14:27] LABS: Anti DNA DS Antibody 1 IU/mL
== END 2021-12-05 11:44 | disposition home or self-care (01) ==
LOC: HO.10HDL 11:43
PROVIDERS: Visit Provider Internal Medicine Rheumatology
DX: M32.9 Systemic lupus erythematosus, unspecified (principal); M35.00 Sjogren syndrome, unspecified; M79.7 Fibromyalgia; M43.06 Spondylolysis, lumbar region; Z79.52 Long term (current) use of systemic steroids; Z79.899 Other long term (current) drug therapy
CPT/HCPCS: 36415; 80053; 84156; 85025; 85652; 86140; 86160; 86225; 99212

== ENCOUNTER → 2021-12-21 12:57 | Outpatient (BNVA) | payer OTHER, SELFPAY | PROVIDERS: PCP Internal Medicine; Visit Provider Internal Medicine Pulmonary Disease | DX: J44.9 Chronic obstructive pulmonary disease, unspecified (principal); R06.00 Dyspnea, unspecified; Z79.899 Other long term (current) drug therapy | CPT/HCPCS: 99212 ==

== ENCOUNTER → 2022-01-23 09:58 | Outpatient (REF) | payer OTHER, SELFPAY ==
--- NOTE | ~2022-01-23 | NM_ITS ---
Lexiscan Myocardial perfusion study Indication: Shortness of breath, assess for coronary disease and ischemia Technique: The patient was brought in for a Lexiscan perfusion study on 01/23/2022 and was injected 0.4 mg of Lexiscan intravenously. Within a minute of this injection 25 mCi of sestamibi was given intravenously. Images were obtained using the SPECT gamma camera interlaced with the gating device. Images were obtained in supine position. Resting perfusion study was performed on 01/24/2022. Patient was administered 25 mCi of sestamibi intravenously at rest. Images were then obtained in supine position. Total DLP 108mGy-cm. Images were processed with the software and compared side to side in short axis, horizontal long axis and vertical long axis views. Findings: Raw acquisition reviewed. The stress perfusion study showed diminished tracer uptake in the apical part of anterior septum. This is also seen with CT attenuation correction. There is diminished tracer uptake in the basal part of inferolateral wall. Again seen with CT attenuation correction. The gated study shows normal LV systolic function with calculated LVEF of 64%. LV cavity is normal in size. The gated study shows normal wall thickening and contraction of segments. Resting study shows diminished tracer uptake in the basal part of inferolateral wall. In the CT attenuation corrected images, there is also apical anteroseptal mild defect. Gating at rest reveals normal wall motion with ejection fraction at 67%. The findings are consistent with fixed apical anteroseptal defect, probably artifactual. Fixed appearing basal inferolateral defect with some reversibility. NM/NM yomaira perf SPECT rest & str Impression: 1. Myocardial perfusion imaging study shows mixed ischemia/infarct pattern in the basal inferolateral wall that corresponds to history of circumflex territory infarct. Apical anteroseptal defect probably artifactual. 2. Gated LVEF is 71% during stress and 67% during rest. 3. Transient ischemic dilatation not present. EKG component of the test reported separately.
--- NOTE | 2022-01-23 11:30 | CA_ITS ---
Acquisition Time: 2022-01-23 10:12:03 Total Exercise Time: 00:02:00 Test Indications: SOB Medications: Protocol: LEXISCAN Max HR: 104 BPM 65% of Pred: 160 BPM Max BP: 134/070 mmHG Max Work Load: 1.0 METS Pharmacological stress test with Lexiscan injection, while sitting and kicking her legs, with moderate sob, no chest discomfort, without arrythmia, with normotensive response to injection, with nondiagnostic EKG for ischemia. In recovery she was treated with Aminophylline 75mg IVP to reverse Lexiscan with resolution of symptom. Nuclear images pending. Test reviewed with Dr Boyce. Referred By: Nathen Forbes Overread By: FIONA COOK
== END ==
LOC: HO.CARD 09:58
PROVIDERS: Visit Provider Hospitalist
DX: R06.00 Dyspnea, unspecified (principal)
CPT/HCPCS: 78452; 93017; A9500; J0280; J2785

== ENCOUNTER → 2022-02-01 14:19 | Outpatient (BNVA) | payer OTHER, SELFPAY | PROVIDERS: PCP Internal Medicine; Visit Provider Internal Medicine Pulmonary Disease | DX: J44.9 Chronic obstructive pulmonary disease, unspecified (principal); R06.00 Dyspnea, unspecified | CPT/HCPCS: 99212 ==

== ENCOUNTER 2022-02-07 13:40 | Outpatient (REF) | payer OTHER, SELFPAY ==
--- NOTE | ~2022-02-07 | MM_ITS ---
EXAMINATION: MM DIAGNOSTIC DIGITAL BREAST TOMOSYNTHESIS, RIGHT CLINICAL INFORMATION: Short interval six-month follow-up for question of asymmetric density mid upper outer right breast, unremarkable on additional views. Assess for occult developing density. The lifetime risk of breast cancer based on the Tyrer-Cuzick Model is 11%. COMPARISON: Mammography: 08/05/2021, 07/28/2021, 07/09/2020, 07/07/2019, 07/04/2018 TECHNIQUE: Digital breast tomosynthesis is performed in both the craniocaudal and mediolateral oblique views along with computer-aided detection (CAD). Synthesized 2D images are generated from the tomosynthesis. FINDINGS: There are scattered areas of fibroglandular density (ACR BI-RADS breast composition Category b). The parenchymal pattern is similar to prior exams. There is no interval asymmetric density or developing density or architectural abnormality. Again, there are scattered fibroglandular densities and scattered benign round and rim and dystrophic calcifications. Results are provided to the patient at time of visit by the technologist. MM/MM tomosynthesis diagnostic RT IMPRESSION: No significant changes from prior exams. No developing density. ASSESSMENT: BI-RADS 2: Benign RECOMMENDATION: Routine annual mammography screening. This patient's information was entered into a reminder system with a target due date for their next mammogram.
== END 2022-02-07 13:41 | disposition home or self-care (01) ==
LOC: HO.MAMMO 13:40
PROVIDERS: PCP Internal Medicine; Visit Provider Internal Medicine
DX: R92.2 Inconclusive mammogram (principal)
CPT/HCPCS: 77061; 77065

== ENCOUNTER → 2022-03-09 08:42 | Outpatient (BNVA) | payer MEDICARE, MEDICAID, SELFPAY | PROVIDERS: PCP Internal Medicine; Referring Provider Internal Medicine; Visit Provider Internal Medicine | DX: I21.21 ST elevation (STEMI) myocardial infarction involving left circumflex coronary artery (principal); I31.39 Other pericardial effusion (noninflammatory) | CPT/HCPCS: 99212 ==

== ENCOUNTER → 2022-03-28 12:39 | Outpatient (BNVA) | payer OTHER, SELFPAY | PROVIDERS: PCP Internal Medicine; Visit Provider Internal Medicine Pulmonary Disease | DX: J44.9 Chronic obstructive pulmonary disease, unspecified (principal); R06.00 Dyspnea, unspecified | CPT/HCPCS: 94618; 99212 ==

== ENCOUNTER → 2022-04-12 09:18 | Outpatient (BNVA) | payer OTHER, SELFPAY | PROVIDERS: PCP Internal Medicine; Visit Provider Internal Medicine Rheumatology | DX: M79.7 Fibromyalgia (principal); M35.00 Sjogren syndrome, unspecified; M81.0 Age-related osteoporosis without current pathological fracture; M32.9 Systemic lupus erythematosus, unspecified; Z79.899 Other long term (current) drug therapy | CPT/HCPCS: 99212 ==

== ENCOUNTER 2022-05-01 15:06 | Outpatient (REF) | payer OTHER, SELFPAY ==
--- NOTE | 2022-05-01 17:39 | PFT_ITS ---
FLOWS: FEV1 49% of predicted at 1.05 L. FVC 49% of predicted at 1.35 L. FEV1 to FVC ratio of 0.78. No bronchodilator response. LUNG VOLUMES: Total lung capacity 65% of predicted at 2.93 L. Residual volume 79% of predicted at 1.43 L. Slow vital capacity 56% of predicted at 1.51 L. Expiratory reserve volume 40% of predicted at 0.38 L. Diffusion capacity is moderately decreased, diffusion capacity corrects to normal after adjustment for alveolar ventilation. IMPRESSION: Severe restrictive ventilatory defect with no bronchodilator response. Decreased expiratory reserve volume suggests extrathoracic restriction likely secondary to abdominal obesity. Combination or restrictive ventilatory defect with decreased diffusion capacity suggests underlying pulmonary parenchymal disease. Clinical correlation is advised. MD CODY Gallardo/MODL / [id number]
== END 2022-05-01 15:07 | disposition home or self-care (01) ==
LOC: HO.RESP 15:06
PROVIDERS: PCP Internal Medicine; Visit Provider Internal Medicine Pulmonary Disease
DX: R06.00 Dyspnea, unspecified (principal)
CPT/HCPCS: 94060; 94727; 94729